=== PATIENT | female | born 1940 | race Caucasian/White ===

== ENCOUNTER → 2016-07-15 | Outpatient (CLI) | payer OTHER ==
[~2016-07-15] MED LIST: ACET-749 PO; AMOX1TAB42 PO; ATOR-24 PO; AZAT50TA17 PO; CLC100 PO; CRAN1TAB PO; GLIP10TA9 PO; INSU3INJ3 SQ; MRLP17X PO; MULT-506 PO; NATE1TAB PO; NRN400 PO; OMEP20CA9 PO; OXYC1TAB3 PO; POLY335019 PO; PRED-301 PO; PRED10TA PO; PRLSR20 PO; RXC5 PO; SENN-65 PO; SITA100T3 PO
--- NOTE | 2016-07-15 15:04 | DIAGNOSTIC IMAGING REPORT ---
RIGHT SHOULDER 3 VIEWS CLINICAL HISTORY: Right shoulder pain. FINDINGS: 3 views of the right shoulder are obtained. No prior studies are available for comparison at the time of dictation. The skeletal structures appear osteopenic. No fracture or dislocation is seen. Minimal degenerative change is seen at the acromioclavicular joint. The glenohumeral articulation appears preserved. The overlying soft tissues are within normal limits. Partially imaged right upper lobe lung parenchyma appears clear. Atherosclerotic calcification is noted in the thoracic aorta. IMPRESSION: Osteopenia and mild degenerative change as above. No acute bony abnormality is seen. Electronically signed by: Isaac Choudhury M.D. 07/15/2016 3:02 PM Dictated Date/Time: 07/15/2016 3:01 PM
== END | disposition home or self-care (01) ==
LOC: C.RAD 14:20
PROVIDERS: ATTEND Internal Medicine Hematology & Oncology
DX: C68.0 Malignant neoplasm of urethra (principal); M85.80 Other specified disorders of bone density and structure, unspecified site

== ENCOUNTER 2016-08-27 17:27 | Inpatient (IN) | payer OTHER ==
[~2016-08-27] VITALS: Ht 154.9 cm; Wt 53.0 kg
[~2016-08-27 17:27] MED LIST changes: -AMOX1TAB42 PO; -AZAT50TA17 PO; -INSU3INJ3 SQ; -MRLP17X PO; -NATE1TAB PO; -NRN400 PO; -OMEP20CA9 PO; -OXYC1TAB3 PO; -POLY335019 PO; -PRED-301 PO; -PRED10TA PO; -RXC5 PO; -SENN-65 PO
[2016-08-27 19:59] LABS: BASO % 0.2 %; BASO ABS # 0.02 K/uL (0-0.2); COMPLETE YES; EOS % 2.7 %; HEMATOCRIT 33.5 % (37-47); IG% 0.3 %; LYMPH % 21.2 %; LYMPH ABS # 1.96 K/uL (1.2-3.4); MEAN CORPUSCULAR HEMOGLOBIN 30.5 pg (25-34); MEAN CORPUSCULAR HGB CONC 33.1 g/dl (32-36); MEAN PLATELET VOLUME 10.5 fL (7.4-10.4); MONO % 9.5 %; NEUT % 66.1 %; PLATELET COUNT 358 K/uL (130-400); RED BLOOD COUNT 3.64 M/uL (4.2-5.4); WHITE BLOOD COUNT 9.23 K/uL (4.8-10.8)
[2016-08-27 20:15] LABS: BUN/CREATININE RATIO 12.4 (10-20); CALCIUM 8.9 mg/dl (8.5-10.1); CREATININE 1.9 mg/dl (0.60-1.20); POTASSIUM 4.1 mmol/L (3.5-5.1)
[2016-08-27 20:31] LABS: URINE APPEARANCE CLEAR (CLEAR); URINE BILIRUBIN NEG (NEG); URINE COLOR YELLOW; URINE NITRITE NEG (NEG); URINE PH 7.5 (4.5-7.5); UROBILINOGEN NEG (NEG); ZZUR CULT IF INDIC CLEAN CATCH YES
[2016-08-27 20:36] LABS: MANUAL MICROSCOPIC REQUIRED? NO; REVIEW REQ? NO
--- NOTE | 2016-08-27 20:49 | DIAGNOSTIC IMAGING REPORT ---
CT SCAN OF THE ABDOMEN AND PELVIS WITHOUT IV CONTRAST CLINICAL HISTORY: Lower abdominal pain. COMPARISON STUDY: Abdominal CT dated 06/10/2016. TECHNIQUE: CT scan of the abdomen and pelvis is performed from the lung bases to the proximal femora. Images are reviewed in the axial, sagittal, and coronal planes. IV contrast was not administered for this examination as per the referring clinician. Note that the examination was performed in suboptimal fashion without oral and IV contrast. Automated dose control exposure was utilized. CT DOSE: 288.14 mGycm FINDINGS: Lung bases: The heart is normal in size and without pericardial effusion. The coronary arteries are densely calcified. There is a small hiatal hernia. There is bibasilar atelectasis. Left basilar opacities are asymmetric as compared to the right. Emphysema is suspected. The left breast appears heterogeneously dense. Liver: The unenhanced liver is normal in size, contour, and attenuation. There is minimal central intrahepatic biliary ductal dilatation. Gallbladder: The gallbladder is normal in appearance. Ectasia of the common bile duct is similar to previous. Spleen: Normal in size and attenuation. Pancreas: The unenhanced pancreas is moderately atrophic and grossly unremarkable. This is not well assessed. Adrenal glands: Unremarkable. Kidneys: The left kidney is surgically absent. The unenhanced right kidney demonstrates cortical atrophy and is without hydronephrosis. There are no renal calculi identified. There is no evidence of contour deforming renal mass lesion. Abdominal vasculature: The abdominal aorta is normal in course and caliber noting mild to moderate atherosclerotic calcification. Bowel: The no bowel obstruction is seen. A duodenal diverticulum is suspected. There is moderate to severe colonic fecal retention. The distal small bowel is fecalized. There is wall thickening identified in the sigmoid colon with pericolonic inflammation and trace pericolonic fluid. Scattered colonic diverticula are identified. The appendix is not clearly identified. Peritoneum: There is no intraperitoneal free air or abdominal ascites. There is a small fat-containing umbilical hernia. Lymphadenopathy: None. Pelvic viscera: The bladder is normal as visualized. The uterus is surgically absent. No adnexal lesion is seen. Numerous phleboliths are identified in the pelvis. Skeletal structures: The skeletal structures are osteopenic. No lytic or blastic lesions are seen. There is mild to moderate lumbosacral spondylosis and scoliosis. Degenerative changes also seen in the hips. Soft tissues: A lipoma is noted in the musculature of the left lower back on image #145. IMPRESSION: 1. Significant suboptimal examination without oral and IV contrast. 2. There is moderate to severe constipation. 3. There is wall thickening with mild pericolonic inflammation and trace fluid seen involving the sigmoid colon. No significant diverticular disease is identified in this region and this is likely related to a nonspecific colitis, possibly stercoral. Clinical correlation will be required. Consider colonoscopy posttreatment for further assessment of the colon. 4. The left kidney is surgically absent. 5. There are bibasilar airspace opacities, left greater than right. This likely represents atelectasis. Correlate clinically for evidence of an infectious/inflammatory pneumonitis. 6. The left breast appears heterogeneously dense. This is not well assessed by CT. Consider nonemergent follow-up with mammography if not recently performed. 7. Additional findings as above. Electronically signed by: Isaac Choudhury M.D. 08/27/2016 8:47 PM Dictated Date/Time: 08/27/2016 8:37 PM
[2016-08-27] MEDS ORDERED: PIPERACILLIN/TAZOBACTAM 4.5 GM/100ML D5W IV STA (20:59)
[2016-08-27] MEDS ORDERED: DOCUSATE SODIUM/SENNA 50/8.6MG TAB PO ONE (22:18)
[2016-08-27] MEDS ORDERED: POLYETHYLENE (MIRALAX) 17 GM PACK PO ONE (22:18)
[2016-08-27] MEDS ORDERED: INSU3INJ3 SQ (22:24)
[2016-08-27] MEDS ORDERED: NATE1TAB PO (22:24)
[2016-08-27] MEDS ORDERED: NRN400 PO (22:27)
[2016-08-27] MEDS ORDERED: PRED10TA PO (22:27)
--- NOTE | 2016-08-27 22:27 | EMERGENCY ROOM VISIT NOTE ---
History Report prepared by Katey: Haseeb Ch Under the Supervision of: Dr. Jase Jose M.D. First contact with patient: 19:18 Chief Complaint: ABDOMINAL PAIN Stated Complaint: PAIN IN LOWER ABDOMEN, PAIN IN RECTUM Nursing Triage Summary: pt c/o lower abd pain into rectum. "I on't know if there is blockage". [facility] told pt to come in. denies n/v/d. last BM Wednesday, "I made myself go, I squirted water up there. I always have trouble going." kidney removed 06/23 History of Present Illness The patient is a 75 year old female who presents to the Emergency Room with complaints of waxing and waning lower abdominal pain that started yesterday. She says that the pain was higher in her abdomen yesterday, but is now lower today. The patient rates the pain as a 9 out of 10 in severity, and it is sharp when the pain is most intense. The patient called her urologist today (Dr. Jarvis), and he told the patient to come here. She also complains of pain into her rectum. The patient states that lying flat on her back causes her rectum to hurt and feel like she needs to go to the bathroom. However, she cannot go to the bathroom. Therefore, the patient is lying on her side, which makes her feel better. The patient has not had a bowel movement for 2 days, but did pass gas a few minutes ago for the first time. She has been getting mucous out. The patient took magnesium citrate yesterday but it did not help. The patient notes that she normally runs on the constipated side of things, and sometimes does not have a bowel movement for a couple days. She additionally complains of burning urination. She took Tylenol with codeine for her abdominal pain today, and has been taking codeine on and off since the end of May, when she had her left kidney taken out for cancer. Pt denies LOC, headache, fevers, diaphoresis, visual changes, neck pain, chest pain, breathing difficulties, nausea, vomiting, back pain, numbness, weakness, lymphadenopathy, rash, or other complaints. Source of History: patient Onset: Yesterday Position: abdomen (lower) Symptom Intensity: 9 out of 10 in severity Quality: sharp Timing: waxes/wanes Associated Symptoms: + urinary symptoms Note: Associated symptoms: Rectal pain. Constipated for 2 days. Review of Systems See HPI for pertinent positives and negatives. A total of ten systems were reviewed and were otherwise negative. 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 Family History Omitted due to advanced age Social History Smoking Status: Never Smoker Marital Status: Housing Status: lives alone Occupation Status: retired Current/Historical Medications Scheduled Atorvastatin (Lipitor), 40 MG PO QPM Cranberry (Vaccinium Macrocarp (Cranberry), 500 MG PO QPM Docusate Sodium (Docusate Sodium), 100 MG PO BID Glipizide (Glucotrol), 10 MG PO QAM Insulin Detemir (Levemir Flextouch), 12-13 UNITS SQ QAM Multivitamin (Multivitamin), 1 TAB PO QAM Nateglinide (Starlix), 60 MG PO BID Omeprazole (Prilosec), 20 MG PO DAILY Sitagliptin Phosphate (Januvia), 100 MG PO QAM Scheduled PRN Acetaminophen/Codeine (Tylenol W/Codeine #3), 1-2 TAB PO Q4H PRN for Pain Allergies Coded Allergies: Iodinated Diagnostic Agents (Verified Allergy, Severe, Anaphylaxis, 08/27/16 ) Reported by PT Adhesives (Verified Allergy, Unknown, RASH, 08/27/16) Glyburide (Verified Allergy, Unknown, Hives and Rash, 08/27/16) Reported by PT Latex (Verified Allergy, Unknown, Rash from gloves, 08/27/16) Reported by PT Physical Exam Vital Signs Date Time Temp Pulse Resp B/P Pulse Ox O2 Delivery O2 Flow Rate FiO2 08/27/16 21:20 73 18 131/71 99 08/27/16 19:30 71 08/27/16 19:21 68 16 140/78 98 08/27/16 17:35 37.0 72 20 123/68 97 Room Air Physical Exam GENERAL: Awake, alert, uncomfortable-appearing. HENT: Normocephalic, atraumatic. Oropharynx unremarkable. EYES: Normal conjunctiva. Sclera non-icteric. NECK: Supple. No nuchal rigidity. FROM. No JVD. RESPIRATORY: Clear to auscultation. CARDIAC: Regular rate, normal rhythm. Extremities warm and well perfused. Pulses equal. ABDOMEN: Soft, non-distended. Lower abdominal tenderness. No rebound or guarding. No masses. RECTAL: Deferred. MUSCULOSKELETAL: Chest examination reveals no tenderness. The back is symmetrical on inspection without obvious abnormality. There is no CVA tenderness to palpation. No joint edema. LOWER EXTREMITIES: Calves are equal size bilaterally and non-tender. No edema. No discoloration. NEURO: Normal sensorium. No sensory or motor deficits noted. SKIN: No rash or jaundice noted. Medical Decision & Procedures ER Provider Diagnostic Interpretation: CT: Radiology results as stated below per my review and radiologist interpretation CT SCAN OF THE ABDOMEN AND PELVIS WITHOUT IV CONTRAST CLINICAL HISTORY: Lower abdominal pain. COMPARISON STUDY: Abdominal CT dated 06/10/2016. TECHNIQUE: CT scan of the abdomen and pelvis is performed from the lung bases to the proximal femora. Images are reviewed in the axial, sagittal, and coronal planes. IV contrast was not administered for this examination as per the referring clinician. Note that the examination was performed in suboptimal fashion without oral and IV contrast. Automated dose control exposure was utilized. CT DOSE: 288.14 mGycm FINDINGS: Lung bases: The heart is normal in size and without pericardial effusion. The coronary arteries are densely calcified. There is a small hiatal hernia. There is bibasilar atelectasis. Left basilar opacities are asymmetric as compared to the right. Emphysema is suspected. The left breast appears heterogeneously dense. Liver: The unenhanced liver is normal in size, contour, and attenuation. There is minimal central intrahepatic biliary ductal dilatation. Gallbladder: The gallbladder is normal in appearance. Ectasia of the common bile duct is similar to previous. Spleen: Normal in size and attenuation. Pancreas: The unenhanced pancreas is moderately atrophic and grossly unremarkable. This is not well assessed. Adrenal glands: Unremarkable. Kidneys: The left kidney is surgically absent. The unenhanced right kidney demonstrates cortical atrophy and is without hydronephrosis. There are no renal calculi identified. There is no evidence of contour deforming renal mass lesion. Abdominal vasculature: The abdominal aorta is normal in course and caliber noting mild to moderate atherosclerotic calcification. Bowel: The no bowel obstruction is seen. A duodenal diverticulum is suspected. There is moderate to severe colonic fecal retention. The distal small bowel is fecalized. There is wall thickening identified in the sigmoid colon with pericolonic inflammation and trace pericolonic fluid. Scattered colonic diverticula are identified. The appendix is not clearly identified. Peritoneum: There is no intraperitoneal free air or abdominal ascites. There is a small fat-containing umbilical hernia. Lymphadenopathy: None. Pelvic viscera: The bladder is normal as visualized. The uterus is surgically absent. No adnexal lesion is seen. Numerous phleboliths are identified in the pelvis. Skeletal structures: The skeletal structures are osteopenic. No lytic or blastic lesions are seen. There is mild to moderate lumbosacral spondylosis and scoliosis. Degenerative changes also seen in the hips. Soft tissues: A lipoma is noted in the musculature of the left lower back on image #145. IMPRESSION: 1. Significant suboptimal examination without oral and IV contrast. 2. There is moderate to severe constipation. 3. There is wall thickening with mild pericolonic inflammation and trace fluid seen involving the sigmoid colon. No significant diverticular disease is identified in this region and this is likely related to a nonspecific colitis, possibly stercoral. Clinical correlation will be required. Consider colonoscopy posttreatment for further assessment of the colon. 4. The left kidney is surgically absent. 5. There are bibasilar airspace opacities, left greater than right. This likely represents atelectasis. Correlate clinically for evidence of an infectious/inflammatory pneumonitis. 6. The left breast appears heterogeneously dense. This is not well assessed by CT. Consider nonemergent follow-up with mammography if not recently performed. 7. Additional findings as above. Electronically signed by: Isaac Choudhury M.D. 08/27/2016 8:47 PM Dictated Date/Time: 08/27/2016 8:37 PM Laboratory Results 08/27/16 19:47 Red Blood Count 3.64, Mean Corpuscular Volume 92.0, Mean Corpuscular Hemoglobin 30.5, Mean Corpuscular Hemoglobin Concent 33.1, Mean Platelet Volume 10.5, Neutrophils (%) (Auto) 66.1, Lymphocytes (%) (Auto) 21.2, Monocytes (%) (Auto) 9.5, Eosinophils (%) (Auto) 2.7, Basophils (%) (Auto) 0.2, Neutrophils # (Auto) 6.09, Lymphocytes # (Auto) 1.96, Monocytes # (Auto) 0.88, Eosinophils # (Auto) 0.25, Basophils # (Auto) 0.02 08/27/16 19:47 Test 08/27/16 19:24 08/27/16 19:47 08/27/16 22:18 Urine Color YELLOW Urine Appearance CLEAR (CLEAR) Urine pH 7.5 (4.5-7.5) Urine Specific [place] 1.010 (1.000-1.030) Urine Protein NEG (NEG) Urine Glucose (UA) 1+ (NEG) Urine Ketones NEG (NEG) Urine Occult Blood NEG (NEG) Urine Nitrite NEG (NEG) Urine Bilirubin NEG (NEG) Urine Urobilinogen NEG (NEG) Urine Leukocyte Esterase LARGE (NEG) Urine WBC (Auto) >30 /hpf (0-5) Urine RBC (Auto) 0-4 /hpf (0-4) Urine Hyaline Casts (Auto) 1-5 /lpf (0-5) Urine Epithelial Cells (Auto) 5-10 /lpf (0-5) Urine Bacteria (Auto) 2+ (NEG) White Blood Count 9.23 K/uL (4.8-10.8) Red Blood Count 3.64 M/uL (4.2-5.4) Hemoglobin 11.1 g/dL (12.0-16.0) Hematocrit 33.5 % (37-47) Mean Corpuscular Volume 92.0 fL (80-100) Mean Corpuscular Hemoglobin 30.5 pg (25-34) Mean Corpuscular Hemoglobin Concent 33.1 g/dl (32-36) Platelet Count 358 K/uL (130-400) Mean Platelet Volume 10.5 fL (7.4-10.4) Neutrophils (%) (Auto) 66.1 % Lymphocytes (%) (Auto) 21.2 % Monocytes (%) (Auto) 9.5 % Eosinophils (%) (Auto) 2.7 % Basophils (%) (Auto) 0.2 % Neutrophils # (Auto) 6.09 K/uL (1.4-6.5) Lymphocytes # (Auto) 1.96 K/uL (1.2-3.4) Monocytes # (Auto) 0.88 K/uL (0.11-0.59) Eosinophils # (Auto) 0.25 K/uL (0-0.5) Basophils # (Auto) 0.02 K/uL (0-0.2) RDW Standard Deviation 45.9 fL (36.4-46.3) RDW Coefficient of Variation 13.6 % (11.5-14.5) Immature Granulocyte % (Auto) 0.3 % Immature Granulocyte # (Auto) 0.03 K/uL (0.00-0.02) Anion Gap 9.0 mmol/L (3-11) Est Creatinine Clear Calc Drug Dose 18.7 ml/min Estimated GFR () 29.0 Estimated GFR (Non- 25.0 BUN/Creatinine Ratio 12.4 (10-20) Calcium Level 8.9 mg/dl (8.5-10.1) Total Bilirubin 0.5 mg/dl (0.2-1) Direct Bilirubin 0.1 mg/dl (0-0.2) Aspartate Amino Transf (AST/SGOT) 68 U/L (15-37) Alanine Aminotransferase (ALT/SGPT) 88 U/L (12-78) Alkaline Phosphatase 404 U/L (45-117) Total Protein 8.8 gm/dl (6.4-8.2) Albumin 3.6 gm/dl (3.4-5.0) Lipase 154 U/L (73-393) Laboratory results reviewed by me Medications Administered Medications (Trade) Dose Ordered Sig/Alvarado Route Start Time Stop Time Status Last Admin Dose Admin Piperacillin Sod/ Tazobactam Sod (Zosyn Iv) 4.5 gm NOW STAT IV 08/27/16 20:59 08/27/16 21:01 DC 08/27/16 21:26 4.5 GM ED Course 1953: The patient was evaluated in room B2. A complete history and physical exam was performed. 2058: Ordered Zosyn IV 4.5 gm. 2106: Upon reexamination, the patient was resting comfortably. I discussed the test results and treatment plan with her. The patient will be evaluated for further management. 2121: I discussed the patient with Dr. Olinda De La Cruz logistic specialist - he will evaluate the patient for further treatment. Medical Decision Triage Nursing notes reviewed. The patient's presentation and history were concerning for abdominal pain. Etiologies such as constipation, appendicitis, diverticulitis, obstruction, inflammatory bowel disease, renal colic, PUD, biliary pathology, pancreatitis, mesenteric ischemia, aortic pathology, infections, genitourinary, UTI, perforated viscus, as well as others were entertained. The patient was evaluated. She was tender in her lower abdomen. Cc showed a mild anemia. Creatinine was stable at 1.9. LFTs are elevated but they were stable. Lipase was negative. Urinalysis was concerning for infection. The patient underwent CT imaging and this revealed findings concerning for stercoral colitis. The patient was informed about her breast findings. The patient was given dose of IV Zosyn. Given the fact that she has UTI and the colitis with her pain the patient was offered analgesia but declined again. The patient had a consultation made with internal medicine. She was evaluated in the Emergency Room for further management. The chart was completed utilizing [employer] voice recognition software. Grammatical errors, random word insertions, pronoun errors, and incomplete sentences are an occasional consequence of this system due to software limitations, ambient noise, and hardware issues. Any formal questions or concerns about the content, text, or information contained within the body of this dictation should be directly addressed to the physician for clarification. Consults Time Called: 2104 Consulting Physician: Dr. Olinda De La Cruz logistic specialist Returned Call: 2121 I discussed the patient with Dr. Olinda De La Cruz logistic specialist - he will evaluate the patient for further treatment. Impression Primary Impression: Colitis Additional Impression: UTI (urinary tract infection) Scribe Attestation The scribe's documentation has been prepared under my direction and personally reviewed by me in its entirety. I confirm that the note above accurately reflects all work, treatment, procedures, and medical decision making performed by me. Departure Information Dispostion Being Evaluated By Hospitalist Referrals Jhonny Molina D.O. (PCP) Patient Instructions My [facility] Problem Qualifiers
[2016-08-27] MEDS ORDERED: ACET-749 PO (22:28)
[2016-08-27] MEDS ORDERED: GLUCOSE 40% GEL 15 GM TUBE PO PRN (22:30)
[2016-08-27] MEDS ORDERED: SODIUM CHLORIDE 0.9% 1000ML 1,000 ML IV ONE (22:30)
[2016-08-27] MEDS ORDERED: TRAMADOL HCL 50 MG TAB PO PRN (22:30)
[2016-08-27] MEDS ORDERED: POLYETHYLENE (MIRALAX) 17 GM PACK PO PRN (22:30)
[2016-08-27] MEDS ORDERED: DEXTROSE 50% 50 ML SYR IV PRN (22:30)
[2016-08-27] MEDS ORDERED: GLUCAGON FOR INJ 1 MG VIAL SQ PRN (22:30)
[2016-08-27] MEDS ORDERED: ONDANSETRON INJ 2 MG/ML 2 ML VIAL IV PRN (22:30)
[2016-08-27] MEDS ORDERED: GLUCOSE 10 TABS/TUBE PO PRN (22:30)
[2016-08-27] MEDS ORDERED: HYDROmorphone INJ 0.5 MG/0.5 ML SYR IV PRN (22:30)
[2016-08-27] MEDS ORDERED: ACETAMINOPHEN 325 MG TAB PO PRN (22:30)
[2016-08-27 22:37] LABS: PARTIAL THROMBOPLASTIN RATIO 1.1; PROTHROMBIN TIME (PATIENT) 11.1 SECONDS (9.0-12.0)
[2016-08-28 00:42] VITALS: BP 126/66; PULSE 83; TEMP 36.9; O2SAT 97; Ht 154.9 cm; Wt 53.0 kg
[2016-08-28] MEDS: HEPARIN SOD 5000 UNIT/0.5 ML CARP SQ SCH ×3 (05:46→20:39)
[2016-08-28 07:36] LABS: HEMATOCRIT 31.4 % (37-47); MEAN CELL VOLUME 89.7 fL (80-100); MEAN CORPUSCULAR HEMOGLOBIN 30.3 pg (25-34); MEAN CORPUSCULAR HGB CONC 33.8 g/dl (32-36); MEAN PLATELET VOLUME 9.8 fL (7.4-10.4); PLATELET COUNT 314 K/uL (130-400); WHITE BLOOD COUNT 8.18 K/uL (4.8-10.8)
[2016-08-28 07:38] VITALS: BP 100/63; PULSE 66; TEMP 36.7; O2SAT 96
--- NOTE | 2016-08-28 07:38 | HISTORY & PHYSICAL EXAMINATION ---
DATE OF ADMISSION: 08/27/2016 PRIMARY CARE DOCTOR: Dr. Molina. Hx obtained from px and records. CHIEF COMPLAINT: Lower abdominal discomfort. 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 DM2, on oral meds. Uterine cancer sp surgery Recent confinement May 2016 under Urology service for left ureteric TCC status post left nephroureterectomy with lymph node dissection. Few days history of achy lower abdominal pain; somewhat constipated. usual BM every 2 days. No chest pain, no shortness of breath. Px also co bladder discomfort. no fever, admits to chills At the Emergency Room, the patient received Zosyn for UTI. Chronic anemia, hemoglobin 11. MEDICAL HISTORY: As above. Recent outpatient endoscopies for abnormal LFTs, abnormal MRCP(bile duct dilatation). Autoimmune markers are elevated. [place] [facility] as per patient contemplated. Outpatient Oncology contemplated for ureteric cancer. EGD in June 2016, gastritis, nonbleeding duodenal diverticulum Colonoscopy showed in 2011 diverticulosis and internal hemorrhoids. SURGERIES: She has had a ureteronephrectomy, left. hysterectomy. HOME MEDICATIONS: Include Lipitor, cranberry, Glucotrol, multivitamins, Prilosec, Januvia. ALLERGIES: ADHESIVES, GLYBURIDE, LATEX, DYE. FAMILY HISTORY: Family history of heart disease, diabetes, and breast cancer. PERSONAL AND SOCIAL HISTORY: Nonsmoker, no chronic intake of alcoholic beverages. . REVIEW OF SYSTEMS: As per HPI. All other ROS negative. PHYSICAL EXAMINATION: VITAL SIGNS: Blood pressure was noted to be 130/68, pulse rate 72, RR 20, temperature 36.7, and sats 97 on room air. GENERAL: Noted to be slightly anxious, no respiratory distress. SKIN: Pallor. HEENT: Pale palpebral conjunctivae. Dry mucosa. NECK: No JVD. supple CHEST: Clear to auscultation. HEART: Regular rate and rhythm. ABDOMEN: Hypogastric tenderness. NEUROLOGIC: No gross focality. LABORATORY AND IMAGING DATA: Hemoglobin was 11.9, white cells 9.2, platelets 200. Sodium 136, potassium 4.1, chloride 98, CO2 28, BUN 24, creatinine 1.9, glucose was noted to be 179. HgA1c 7.5 (05/2016) CT abdomen and pelvis showed pericolonic inflammation, mild nonspecific colitis , possibly stercoral, atelectasis, left breast heterogenicity dense, constipation. outpx mammogram December 2015 was benign, no evidence of malignancy. UA large WBCs positive. ASSESSMENT: 1. Complicated urinary tract infection 2 to constipation sx hx uroepithelial CA, L sp surgery no sepsis hx ampicillin resistant Escherichia coli on previous outpx CS 2. reactive colitis secondary to constipation. 3. Hypertension, stable. 4. ARF on CRI 2 to illness 5. DM2, on oral meds reasonable control as of recent outpx A1c. 6. chronic anemia to CKD, hemoglobin at baseline, 7. abnormal LFTs possible autoimmune hepatitis as per px C [facility] referral contemplated as per px. 8. uterine CA sp surgery PLAN: GMF Follow urine cultures, IV ceftriaxone for now. Bowel regimen Monitor creatinine response to IV fluids. ISS BG goal 140-180. DVT prophylaxis. Heparin subQ. Full code. MTDD
[2016-08-28 08:08] LABS: BUN/CREATININE RATIO 11.8 (10-20); CALCIUM 8.8 mg/dl (8.5-10.1); CREATININE 1.9 mg/dl (0.60-1.20)
[2016-08-28] MEDS: INSULIN ASPART 100 UNITS/ML 3 ML PEN SC SCH ×4 (08:42→20:38)
[2016-08-28 08:44] LABS: BASO % 0.2 %; BASO ABS # 0.02 K/uL (0-0.2); COMPLETE YES; EOS % 3.3 %; IG% 0.1 %; LYMPH ABS # 1.72 K/uL (1.2-3.4); NEUT % 68.4 %
[2016-08-28] MEDS: PANTOprazole SOD 40 MG TAB PO SCH ×2 (08:51→20:20)
[2016-08-28] MEDS: MULTIVITAMIN TAB PO SCH (08:51)
[2016-08-28] MEDS: DOCUSATE SODIUM/SENNA 50/8.6MG TAB PO SCH ×2 (08:52→20:20)
[2016-08-28] MEDS: INSULIN GLARGINE SOLOSTAR 100 UNITS/ML 3 ML PEN SC SCH (08:59)
[2016-08-28] MEDS ORDERED: CEFTRIAXONE SOD INJ 1 GM in DEXTROSE 5% ADD-VANTAGE 50ML 50 ML IV SCH (09:00)
[2016-08-28] MEDS ORDERED: VANCOMYCIN INJ 1,000 MG in SODIUM CHLORIDE 0.9% 250ML 250 ML IV SCH (14:45)
[2016-08-28] MEDS ORDERED: VANCOMYCIN CONSULT ACTIVE PRN (15:00)
[2016-08-28] MEDS ORDERED: VANCOMYCIN INJ 1,100 MG in SODIUM CHLORIDE 0.9% 250ML 250 ML IV ONE (15:30)
[2016-08-28 15:34] VITALS: BP 117/74; PULSE 70; TEMP 36.7; O2SAT 97
--- NOTE | 2016-08-28 15:46 | Pharmacy Progress Note ---
Pharmacy Antibiotic Consult Date of Service: Aug 28, 2016. Pharmacy Dosing Scope Pharmacy is consulted to initiate vancomycin IV dosing therapy, order appropriate labs and adjust drug dose/frequency. Subjective The patient is a 75 year old female admitted on Aug 27, 2016 at 21:46. Objective Height (Feet): 5 Height (Inches): 1.00 Weight (Kilograms): 53.000 Lab Results (24hrs): Laboratory Tests Test 08/27/16 19:47 08/28/16 07:24 BUN/Creatinine Ratio 12.4 11.8 Blood Urea Nitrogen 24 mg/dl 23 mg/dl Creatinine 1.90 mg/dl 1.90 mg/dl White Blood Count 9.23 K/uL 8.18 K/uL Red Blood Count 3.64 M/uL 3.50 M/uL Hemoglobin 11.1 g/dL 10.6 g/dL Hematocrit 33.5 % 31.4 % Mean Corpuscular Volume 92.0 fL 89.7 fL Mean Corpuscular Hemoglobin 30.5 pg 30.3 pg Mean Corpuscular Hemoglobin Concent 33.1 g/dl 33.8 g/dl Platelet Count 358 K/uL 314 K/uL Mean Platelet Volume 10.5 fL 9.8 fL Neutrophils (%) (Auto) 66.1 % 68.4 % Lymphocytes (%) (Auto) 21.2 % 21.0 % Monocytes (%) (Auto) 9.5 % 7.0 % Eosinophils (%) (Auto) 2.7 % 3.3 % Basophils (%) (Auto) 0.2 % 0.2 % Neutrophils # (Auto) 6.09 K/uL 5.59 K/uL Lymphocytes # (Auto) 1.96 K/uL 1.72 K/uL Monocytes # (Auto) 0.88 K/uL 0.57 K/uL Eosinophils # (Auto) 0.25 K/uL 0.27 K/uL Basophils # (Auto) 0.02 K/uL 0.02 K/uL Assessment & Plan Patient initiated on vancomycin for UC now growing enterococcus. Had been on rocephin - now al'ed. Vancomycin: * Will give LD of 1100 mg (~20 mg/kg) x 1 * Patient with CKD baseline Scr ~2 mg/dL (of note hx of nephrectomy; unsure of urine output) * Because of unstable renal function will dose by levels ; will order a random level in the am to assist with further dosing, estimated level tomorrow am still >15 mcg/ml (goal 15-20 mcg/ml for UTI) * Estimated kinetics: t1/2~>24 hrs, ke ~0.019 hr-1, CrCl ~18ml/min Pharmacy will continue to follow and will adjust dose/frequency as necessary. Thank you
[2016-08-28 16:00] VITALS: O2SAT 97
--- NOTE | 2016-08-28 18:59 | Progress Note ---
Internal Med Progress Note Date of Service: Aug 28, 2016. Provider Documentation: SUBJECTIVE: resting comfortable afebrile 'moved bowels twice and abdominal pain is better now no nausea OBJECTIVE: Vital Signs-as noted below Exam: General-alert and awake and oriented. Not in distress ENT-normal hearing Neck-no neck masses Lungs-cta b/l no wheezing or crackles Heart-s1 and s2 heard, regular rate and rhythm no murmurs Abdomen-soft bowel sounds present non tender no distension Extremities-no edema no erythema Neuro-alert and awake moves extremities Lab data as noted below. ASSESSMENT & PLAN: 1. 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 ARF on CRI 2 to illness cr 1.9 will monitor. DM2, on oral meds reasonable control as of recent outpx A1c. on lantus and iss will monitor. Chronic anemia to CKD, hemoglobin at baseline, hb 10.6 Abnormal LFTs possible autoimmune hepatitis as per px [facility] referral contemplated as per px. Uterine CA sp surgery DVT PROPHYLAXIS hep sub q DISPOSITION to be determined ambulate in [address]. Vital Signs: Date Time Temp Pulse Resp B/P Pulse Ox O2 Delivery O2 Flow Rate FiO2 08/28/16 16:00 97 Room Air 08/28/16 15:34 36.7 70 20 117/74 97 Room Air 08/28/16 08:00 Room Air 08/28/16 07:38 36.7 66 16 100/63 96 Room Air 08/28/16 00:42 36.9 83 18 126/66 97 Room Air 08/27/16 22:31 84 20 101/79 97 Room Air 08/27/16 21:20 73 18 131/71 99 08/27/16 19:30 71 08/27/16 19:21 68 16 140/78 98 Lab Results: Results Past 24 Hours Test 08/27/16 19:24 08/27/16 19:47 08/27/16 23:34 08/28/16 07:24 Range/Units Urine Color YELLOW Urine Appearance CLEAR CLEAR Urine pH 7.5 4.5-7.5 Urine Specific [place] 1.010 1.000-1.030 Urine Protein NEG NEG Urine Glucose (UA) 1+ NEG Urine Ketones NEG NEG Urine Occult Blood NEG NEG Urine Nitrite NEG NEG Urine Bilirubin NEG NEG Urine Urobilinogen NEG NEG Urine Leukocyte Esterase LARGE NEG Urine WBC (Auto) >30 0-5 /hpf Urine RBC (Auto) 0-4 0-4 /hpf Urine Hyaline Casts (Auto) 1-5 0-5 /lpf Urine Epithelial Cells (Auto) 5-10 0-5 /lpf Urine Bacteria (Auto) 2+ NEG White Blood Count 9.23 8.18 4.8-10.8 K/uL Red Blood Count 3.64 3.50 4.2-5.4 M/uL Hemoglobin 11.1 10.6 12.0-16.0 g/dL Hematocrit 33.5 31.4 37-47 % Mean Corpuscular Volume 92.0 89.7 80-100 fL Mean Corpuscular Hemoglobin 30.5 30.3 25-34 pg Mean Corpuscular Hemoglobin Concent 33.1 33.8 32-36 g/dl Platelet Count 358 314 130-400 K/uL Mean Platelet Volume 10.5 9.8 7.4-10.4 fL Neutrophils (%) (Auto) 66.1 68.4 % Lymphocytes (%) (Auto) 21.2 21.0 % Monocytes (%) (Auto) 9.5 7.0 % Eosinophils (%) (Auto) 2.7 3.3 % Basophils (%) (Auto) 0.2 0.2 % Neutrophils # (Auto) 6.09 5.59 1.4-6.5 K/uL Lymphocytes # (Auto) 1.96 1.72 1.2-3.4 K/uL Monocytes # (Auto) 0.88 0.57 0.11-0.59 K/uL Eosinophils # (Auto) 0.25 0.27 0-0.5 K/uL Basophils # (Auto) 0.02 0.02 0-0.2 K/uL RDW Standard Deviation 45.9 44.1 36.4-46.3 fL RDW Coefficient of Variation 13.6 13.4 11.5-14.5 % Immature Granulocyte % (Auto) 0.3 0.1 % Immature Granulocyte # (Auto) 0.03 0.01 0.00-0.02 K/uL Prothrombin Time 11.1 9.0-12.0 SECONDS Prothromb Time International Ratio 1.0 0.9-1.1 Activated Partial Thromboplast Time 27.3 21.0-31.0 SECONDS Partial Thromboplastin Ratio 1.1 Sodium Level 135 135 136-145 mmol/L Potassium Level 4.1 4.0 3.5-5.1 mmol/L Chloride Level 98 101 98-107 mmol/L Carbon Dioxide Level 28 25 21-32 mmol/L Anion Gap 9.0 9.0 3-11 mmol/L Blood Urea Nitrogen 24 23 7-18 mg/dl Creatinine 1.90 1.90 0.60-1.20 mg/dl Est Creatinine Clear Calc Drug Dose 18.7 18.7 ml/min Estimated GFR () 29.0 29.0 Estimated GFR (Non- 25.0 25.0 BUN/Creatinine Ratio 12.4 11.8 10-20 Random Glucose 148 103 70-99 mg/dl Calcium Level 8.9 8.8 8.5-10.1 mg/dl Total Bilirubin 0.5 0.2-1 mg/dl Direct Bilirubin 0.1 0-0.2 mg/dl Aspartate Amino Transf (AST/SGOT) 68 15-37 U/L Alanine Aminotransferase (ALT/SGPT) 88 12-78 U/L Alkaline Phosphatase 404 45-117 U/L Total Protein 8.8 6.4-8.2 gm/dl Albumin 3.6 3.4-5.0 gm/dl Lipase 154 73-393 U/L Bedside Glucose 179 70-90 mg/dl Test 08/28/16 08:42 08/28/16 12:01 08/28/16 16:22 Range/Units Bedside Glucose 156 189 212 70-90 mg/dl Microbiology Results 08/27/16 Urine Culture - Preliminary, Resulted Enterococcus Species
[2016-08-28] MEDS ORDERED: POLYETHYLENE (MIRALAX) 17 GM PACK PO ONE (20:00)
[2016-08-29] VITALS: BP 105/66; PULSE 59; TEMP 36.8; O2SAT 99
[2016-08-29] MEDS: HEPARIN SOD 5000 UNIT/0.5 ML CARP SQ SCH ×2 (05:44→14:09)
[2016-08-29 06:35] LABS: BUN/CREATININE RATIO 13.6 (10-20); CALCIUM 8.6 mg/dl (8.5-10.1); CREATININE 1.8 mg/dl (0.60-1.20); POTASSIUM 4.3 mmol/L (3.5-5.1)
[2016-08-29 07:45] VITALS: BP 117/70; PULSE 53; TEMP 36.7; O2SAT 99
[2016-08-29] MEDS: INSULIN ASPART 100 UNITS/ML 3 ML PEN SC SCH ×4 (08:06→20:27)
[2016-08-29] MEDS: DOCUSATE SODIUM/SENNA 50/8.6MG TAB PO SCH ×2 (08:07→20:27)
[2016-08-29] MEDS: INSULIN GLARGINE SOLOSTAR 100 UNITS/ML 3 ML PEN SC SCH (08:07)
[2016-08-29] MEDS: PANTOprazole SOD 40 MG TAB PO SCH ×2 (08:07→20:27)
[2016-08-29] MEDS: MULTIVITAMIN TAB PO SCH (08:07)
--- NOTE | 2016-08-29 09:25 | Pharmacy Progress Note ---
Pharmacy Antibiotic Prog Note Date of Service: Aug 29, 2016. Subjective: The patient is currently receiving IV Vancomycin dosing based on random levels due to CKD. The patient is currently on day # 2 of IV therapy. Objective: Height (Feet): 5 Height (Inches): 1.00 Weight (Kilograms): 53.000 Levels: Item Value Date Time Random Vancomycin Level 12.0 mcg/ml 08/29/16 0550 Lab Results (24hrs): Laboratory Tests Test 08/29/16 05:50 BUN/Creatinine Ratio 13.6 Blood Urea Nitrogen 24 mg/dl Creatinine 1.80 mg/dl Micro Results: Item Value Date Time Urine Culture - Preliminary Resulted 08/27/16 1924 Urine , Clean Catch Enterococcus Species Recent Pertinent Medications: Item Value Date Time Vancomycin HCl 272 ml @ 125 mls/hr 08/28/16 1530 1100 mg/Sodium TODAY@1530 ONCE/IV 08/28/16 1610 Chloride Vancomycin HCl 265 ml @ 125 mls/hr 08/29/16 1000 750 mg/Sodium TODAY@1000/IV Chloride Assessment & Plan: Vancomycin * 75 yo female on IV Vanco for entercoccus in urine * received 20mg/kg load yesterday with further dosing guided by random levels due to CKD/unstable renal fxn * random level this am: 12mcg/mL --> will redose today * goal trough level: 15-20mcg/mL * give Vancomycin 750mg IV x 1 dose (~14mg/kg) * repeat level ordered with 3/5 AM labs Pharmacy will continue to follow and will adjust dose/frequency as necessary. Thank you
[2016-08-29] MEDS ORDERED: VANCOMYCIN INJ 750 MG in SODIUM CHLORIDE 0.9% 250ML 250 ML IV SCH (10:00)
[2016-08-29] MEDS ORDERED: INSULIN GLARGINE SOLOSTAR 100 UNITS/ML 3 ML PEN SC ONE (15:00)
[2016-08-29] MEDS: AMOXICILLIN/CLAVULANATE TAB 500 MG TAB PO SCH (16:52)
--- NOTE | 2016-08-29 19:44 | Progress Note ---
Internal Med Progress Note Date of Service: Aug 29, 2016. Provider Documentation: SUBJECTIVE: resting comfortable bowels moving afebrile abdominal pain much improved OBJECTIVE: Vital Signs-as noted below Exam: General-alert and awake and oriented. Not in distress ENT-normal hearing Neck-no neck masses Lungs-cta b/l no wheezing or crackles Heart-s1 and s2 heard, regular rate and rhythm no murmurs Abdomen-soft bowel sounds present non tender no distension Extremities-no edema no erythema Neuro-alert and awake moves extremities Lab data as noted below. ASSESSMENT & PLAN: 1. 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 ARF on CRI 2 to illness cr 1.8 will monitor. DM2, on oral meds reasonable control as of recent outpx A1c. on Lantus and iss and adjusted insulin will monitor. Chronic anemia to CKD, hemoglobin at baseline, hb 10.6 Abnormal LFTs possible autoimmune hepatitis as per px [facility] referral contemplated as per px. Uterine CA sp surgery DVT PROPHYLAXIS hep sub q DISPOSITION possible d/c in am ambulate in [address]. Vital Signs: Date Time Temp Pulse Resp B/P Pulse Ox O2 Delivery O2 Flow Rate FiO2 08/29/16 16:00 Room Air 08/29/16 12:00 Room Air 08/29/16 08:00 Room Air 08/29/16 07:45 36.7 53 18 117/70 99 08/29/16 00:00 36.8 59 20 105/66 99 Room Air 08/29/16 00:00 Room Air Lab Results: Results Past 24 Hours Test 08/28/16 20:29 08/29/16 05:50 08/29/16 07:25 08/29/16 11:13 Range/Units Bedside Glucose 268 204 287 70-90 mg/dl Sodium Level 134 136-145 mmol/L Potassium Level 4.3 3.5-5.1 mmol/L Chloride Level 102 98-107 mmol/L Carbon Dioxide Level 24 21-32 mmol/L Anion Gap 8.0 3-11 mmol/L Blood Urea Nitrogen 24 7-18 mg/dl Creatinine 1.80 0.60-1.20 mg/dl Est Creatinine Clear Calc Drug Dose 19.7 ml/min Estimated GFR () 30.9 Estimated GFR (Non- 26.7 BUN/Creatinine Ratio 13.6 10-20 Random Glucose 209 70-99 mg/dl Calcium Level 8.6 8.5-10.1 mg/dl Random Vancomycin Level 12.0 mcg/ml Test 08/29/16 16:20 Range/Units Bedside Glucose 116 70-90 mg/dl
[2016-08-29 23:44] VITALS: BP 115/73; PULSE 55; TEMP 36.7; O2SAT 98
[2016-08-30 06:25] LABS: BUN/CREATININE RATIO 13.5 (10-20); CALCIUM 8.9 mg/dl (8.5-10.1); POTASSIUM 4.4 mmol/L (3.5-5.1)
[2016-08-30 08:01] VITALS: BP 93/53; PULSE 61; TEMP 36.7; O2SAT 95
[2016-08-30] MEDS: DOCUSATE SODIUM/SENNA 50/8.6MG TAB PO SCH (08:15)
[2016-08-30] MEDS: PANTOprazole SOD 40 MG TAB PO SCH (08:15)
[2016-08-30] MEDS: MULTIVITAMIN TAB PO SCH (08:15)
[2016-08-30] MEDS: AMOXICILLIN/CLAVULANATE TAB 500 MG TAB PO SCH (08:15)
[2016-08-30] MEDS: INSULIN ASPART 100 UNITS/ML 3 ML PEN SC SCH ×2 (08:19→12:12)
[2016-08-30 08:39] VITALS: BP 102/66
[2016-08-30] MEDS ORDERED: INSULIN GLARGINE SOLOSTAR 100 UNITS/ML 3 ML PEN SC SCH (09:00)
[2016-08-30] MEDS ORDERED: AMOX1TAB42 PO (14:57)
--- NOTE | 2016-08-30 15:01 | Discharge Instructions ---
Discharge Instructions Admission Reason for Admission: Arf, Complicated Uti Discharge Discharge Diagnosis / Problem: UTI Discharge Goals Goal(s): Decrease discomfort, Improve function Activity Recommendations Activity Limitations: resume your previous activity . Instructions / Follow-Up Instructions / Follow-Up FOLLOWUP WITH FAMILY DOCTOR ON August AT 12:50PM FOLLOWUP WITH NEPHROLOGY SCHEDULED. LAB: CMP IN 4-5 DAYS AND FOLLOW RESULTS WITH FAMILY DOCTOR. Current Hospital Diet Patient's current hospital diet: Diabetes Type 2 Diet Discharge Diet Recommended Diet: Diabetes Type 2 Diet Pending Studies Studies pending at discharge: no Laboratory Results Hemoglobin A1c Test 06/24/16 05:25 Range/Units Estimated Average Glucose 177 mg/dl Hemoglobin A1c 7.8 H 4.5-5.6 % Medical Emergencies . Who to Call and When: Medical Emergencies: If at any time you feel your situation is an emergency, please call 911 immediately. . Non-Emergent Contact Non-Emergency issues call your: Primary Care Provider . . "Provider Documentation" section prepared by Ellis Wong. VTE Core Measure Inpt VTE Proph given/why not?: SCD's
[2016-08-30] MEDS ORDERED: MRLP17X PO (15:02)
[2016-08-30 15:13] VITALS: BP 102/66; PULSE 61; TEMP 36.7; O2SAT 95
--- NOTE | 2016-08-30 19:10 | Progress Note ---
Internal Med Progress Note Date of Service: Aug 30, 2016. Provider Documentation: SUBJECTIVE: resting comfortable bowels moving good abdominal pain improved ok to go home OBJECTIVE: Vital Signs-as noted below Exam: General-alert and awake and oriented. Not in distress ENT-normal hearing Neck-no neck masses Lungs-cta b/l no wheezing or crackles Heart-s1 and s2 heard, regular rate and rhythm no murmurs Abdomen-soft bowel sounds present non tender no distension Extremities-no edema no erythema Neuro-alert and awake moves extremities Lab data as noted below. ASSESSMENT & PLAN: 1. 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 ckd cr 2.0 on discharge f/u labs with pcp and nephrology will monitor. DM2, on oral meds reasonable control as of recent outpx A1c. on Lantus and iss and adjusted insulin d/c on home meds Chronic anemia to CKD, hemoglobin at baseline, hb 10.6 Abnormal LFTs possible autoimmune hepatitis as per px [facility] referral contemplated as per px. Uterine CA sp surgery discharged home Vital Signs: Date Time Temp Pulse Resp B/P Pulse Ox O2 Delivery O2 Flow Rate FiO2 08/30/16 15:13 36.7 61 16 95 Room Air 08/30/16 08:39 102/66 08/30/16 08:10 Room Air 08/30/16 08:01 36.7 61 16 93/53 95 Room Air 08/30/16 00:00 Room Air 08/29/16 23:44 36.7 55 20 115/73 98 Room Air Lab Results: Results Past 24 Hours Test 08/29/16 20:12 08/30/16 05:31 08/30/16 07:30 08/30/16 11:44 Range/Units Bedside Glucose 81 128 169 70-90 mg/dl Sodium Level 136 136-145 mmol/L Potassium Level 4.4 3.5-5.1 mmol/L Chloride Level 102 98-107 mmol/L Carbon Dioxide Level 24 21-32 mmol/L Anion Gap 10.0 3-11 mmol/L Blood Urea Nitrogen 27 7-18 mg/dl Creatinine 2.00 0.60-1.20 mg/dl Est Creatinine Clear Calc Drug Dose 17.8 ml/min Estimated GFR () 27.2 Estimated GFR (Non- 23.5 BUN/Creatinine Ratio 13.5 10-20 Random Glucose 120 70-99 mg/dl Calcium Level 8.9 8.5-10.1 mg/dl
--- NOTE | 2016-08-30 19:34 | Discharge Summary ---
Discharge Summary Date of Service Aug 30, 2016. 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 DM2, on oral meds. Uterine cancer sp surgery Procedures: CT ABD/PELVIS: 1. Significant suboptimal examination without oral and IV contrast. 2. There is moderate to severe constipation. 3. There is wall thickening with mild pericolonic inflammation and trace fluid seen involving the sigmoid colon. No significant diverticular disease is identified in this region and this is likely related to a nonspecific colitis, possibly stercoral. Clinical correlation will be required. Consider colonoscopy posttreatment for further assessment of the colon. 4. The left kidney is surgically absent. 5. There are bibasilar airspace opacities, left greater than right. This likely represents atelectasis. Correlate clinically for evidence of an infectious/inflammatory pneumonitis. 6. The left breast appears heterogeneously dense. This is not well assessed by CT. Consider nonemergent follow-up with mammography if not recently performed. 7. Additional findings as above. Medication Reconciliation New Medications: Polyethylene (Miralax) 17 Gm Pow 17 GM PO DAILY PRN for Constipation for 30 Days, 1 Refill Amoxicillin & Pot Clavulanate (Amoxicillin/Clavulanate P) 1 Tab Tab 500 MG PO BIDM for 6 Days, TAB Continued Medications: Acetaminophen/Codeine (Tylenol W/Codeine #3) 300 Mg/30 Mg Tab 1 TAB PO Q4 PRN for Pain, TAB Atorvastatin (Lipitor) 40 Mg Tab 40 MG PO QPM, TAB Docusate Sodium (Docusate Sodium) 100 Mg Cap 100 MG PO BID for Constipation for 30 Days, #60 CAP Gabapentin (Gabapentin) 400 Mg Cap 400 MG PO HS, #90 Insulin Detemir (Levemir Flextouch) 100 Unit/Ml Inj 12-13 UNITS SQ QAM, #3 Multivitamin (Multivitamin) Tab 1 TAB PO QAM, TAB Nateglinide (Starlix) 60 Mg Tab 60 MG PO BID, #180 Omeprazole (Prilosec) 20 Mg Capcr 20 MG PO DAILY, CAP TAKE AM SURGERY SIP WATER Prednisone (Prednisone) 10 Mg Tab 10 MG PO TAPER, #100 Sitagliptin Phosphate (Januvia) 100 Mg Tab 100 MG PO QAM, TAB HOLD AM SURGERY Admission Information HPI (per Admitting provider): Medical history significant for 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 DM2, on oral meds. Uterine cancer sp surgery Recent confinement May 2016 under Urology service for left ureteric TCC status post left nephroureterectomy with lymph node dissection. Few days history of achy lower abdominal pain; somewhat constipated. usual BM every 2 days. No chest pain, no shortness of breath. Px also co bladder discomfort. no fever, admits to chills At the Emergency Room, the patient received Zosyn for UTI. Chronic anemia, hemoglobin 11. Physical Exam (per Admitting): VITAL SIGNS: Blood pressure was noted to be 130/68, pulse rate 72, RR 20, temperature 36.7, and sats 97 on room air. GENERAL: Noted to be slightly anxious, no respiratory distress. SKIN: Pallor. HEENT: Pale palpebral conjunctivae. Dry mucosa. NECK: No JVD. supple CHEST: Clear to auscultation. HEART: Regular rate and rhythm. ABDOMEN: Hypogastric tenderness. NEUROLOGIC: No gross focality. Hospital Course 1. 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 ckd cr 2.0 on discharge f/u labs with pcp and nephrology will monitor. DM2, on oral meds reasonable control as of recent outpx A1c. on Lantus and iss and adjusted insulin d/c on home meds Chronic anemia to CKD, hemoglobin at baseline, hb 10.6 Abnormal LFTs possible autoimmune hepatitis as per px [facility] referral contemplated as per px. Uterine CA sp surgery discharged home Total time spent on discharge = 35 MINUTES This includes examination of the patient, discharge planning, medication reconciliation, and communication with other providers. Discharge Instructions Please take this sheet to every appointment for the next month Discharge Instructions Admission Reason for Admission: Arf, Complicated Uti Discharge Discharge Diagnosis / Problem: UTI Discharge Goals Goal(s): Decrease discomfort, Improve function Activity Recommendations Activity Limitations: resume your previous activity . Instructions / Follow-Up Instructions / Follow-Up FOLLOWUP WITH FAMILY DOCTOR ON August AT 12:50PM FOLLOWUP WITH NEPHROLOGY SCHEDULED. LAB: CMP IN 4-5 DAYS AND FOLLOW RESULTS WITH FAMILY DOCTOR. Current Hospital Diet Patient's current hospital diet: Diabetes Type 2 Diet Discharge Diet Recommended Diet: Diabetes Type 2 Diet Pending Studies Studies pending at discharge: no Laboratory Results Hemoglobin A1c Test 06/24/16 05:25 Range/Units Estimated Average Glucose 177 mg/dl Hemoglobin A1c 7.8 H 4.5-5.6 % Medical Emergencies . Who to Call and When: Medical Emergencies: If at any time you feel your situation is an emergency, please call 911 immediately. . Non-Emergent Contact Non-Emergency issues call your: Primary Care Provider . . "Provider Documentation" section prepared by Ellis Wong. VTE Core Measure Inpt VTE Proph given/why not?: SCD's <Electronically signed by Ellis Wong MD>
[2017-01-22] MEDS ORDERED: INSU3INJ3 SQ (17:22)
== END 2016-08-30 15:38 | disposition home or self-care (01) | DRG 690 ==
LOC: ENRESERVDT → ENRESERVTM → C.EDB 17:28 → C.MED 21:46
PROVIDERS: ADMIT Internal Medicine; ATTEND Internal Medicine
DX: N39.0 Urinary tract infection, site not specified (principal); C66.2 Malignant neoplasm of left ureter; N17.9 Acute kidney failure, unspecified; B95.2 Enterococcus as the cause of diseases classified elsewhere; E11.9 Type 2 diabetes mellitus without complications; I10 Essential (primary) hypertension; D64.9 Anemia, unspecified; N18.9 Chronic kidney disease, unspecified; K59.00 Constipation, unspecified; K52.9 Noninfective gastroenteritis and colitis, unspecified; Z79.899 Other long term (current) drug therapy

== ENCOUNTER → 2016-11-30 | Outpatient (CLI) | payer OTHER ==
[~2016-11-30] MED LIST changes: +AMOX1TAB42 PO; +AZAT50TA17 PO; -CRAN1TAB PO; -GLIP10TA9 PO; +INSU3INJ3 SQ; +MRLP17X PO; +NATE1TAB PO; +NRN400 PO; +OMEP20CA9 PO; +OXYC1TAB3 PO; +POLY335019 PO; +PRED-301 PO; +PRED10TA PO; +RXC5 PO; +SENN-65 PO
--- NOTE | 2016-11-30 08:56 | DIAGNOSTIC IMAGING REPORT ---
CT SCAN OF THE ABDOMEN AND PELVIS WITHOUT CONTRAST CLINICAL HISTORY: Left ureteral carcinoma. History of left nephrectomy. COMPARISON STUDY: 317 TECHNIQUE: CT scan of the abdomen and pelvis was performed from the lung bases to the proximal femurs. Images are reviewed in the axial, sagittal, and coronal planes. IV contrast was not administered for this examination. CT DOSE: 248.25 mGy.cm FINDINGS: Lower chest: There is mild cylindrical bronchiectatic change. Liver: The unenhanced liver is normal in size, contour, and attenuation. There is no intrahepatic biliary ductal dilatation. Gallbladder: Unremarkable. Spleen: Normal in size and attenuation. Pancreas: Unremarkable. Adrenal glands: Unremarkable. Kidneys: The patient is status post a left-sided nephrectomy. No right renal masses are visualized in this noncontrast study. No calculi are evident. Bowel: There are no transition zones indicate bowel obstruction. There is mild fecal retention. There is no acute diverticulitis. Scattered colonic diverticula are visualized. The appendix is not visualized with certainty. Peritoneum: There is no intraperitoneal free air or abdominal ascites. Vasculature: The abdominal aorta is normal in course and caliber. Adenopathy: None. Pelvic viscera: The patient is status post a prior hysterectomy. Skeletal structures: No destructive osseous lesions are seen. There is a stable lipoma within the left mid to lower back. There are moderately advanced degenerative changes in the lumbar spine. IMPRESSION: 1. Post surgical changes are prior left nephrectomy 2. No evidence of pathologic adenopathy 3. No CT evidence of metastatic disease 4. Mild fecal retention Electronically signed by: Jorge L Sánchez M.D. 11/30/2016 8:55 AM Dictated Date/Time: 11/30/2016 8:48 AM
== END | disposition home or self-care (01) ==
LOC: C.CTS 08:28
PROVIDERS: ATTEND Urology
DX: C66.2 Malignant neoplasm of left ureter (principal)

== ENCOUNTER 2017-01-18 11:45 | Inpatient (IN) | payer OTHER ==
[~2017-01-18] VITALS: Ht 154.9 cm; Wt 55.8 kg
[~2017-01-18 11:45] MED LIST changes: -AZAT50TA17 PO; -OMEP20CA9 PO; -OXYC1TAB3 PO; -POLY335019 PO; -PRED-301 PO; -RXC5 PO; -SENN-65 PO
[2017-01-18] MEDS ORDERED: ATOR-24 PO (12:22)
[2017-01-18] MEDS ORDERED: POLY335019 PO (12:22)
[2017-01-18] MEDS ORDERED: INSU3INJ3 SQ (12:22)
[2017-01-18] MEDS ORDERED: OMEP20CA9 PO (12:22)
[2017-01-18] MEDS ORDERED: AZAT50TA17 PO (12:22)
[2017-01-18] MEDS ORDERED: MULT-506 PO (12:22)
[2017-01-18] MEDS ORDERED: SITA100T3 PO (12:22)
[2017-01-18] MEDS ORDERED: SENN-65 PO (12:22)
[2017-01-18] MEDS ORDERED: ONDANSETRON INJ 2 MG/ML 2 ML VIAL IV STA (12:33)
[2017-01-18] MEDS ORDERED: SODIUM CHLORIDE 0.9% 1000ML 1,000 ML IV STA (12:33)
[2017-01-18] MEDS ORDERED: MoRPHine SULFATE 4 MG/ML 1 ML CARP\\VIAL IV STA ×2 (12:33→18:22)
--- NOTE | 2017-01-18 13:03 | DIAGNOSTIC IMAGING REPORT ---
CHEST ONE VIEW PORTABLE CLINICAL HISTORY: cough dyspnea COMPARISON STUDY: 01/15/2015 FINDINGS: The bones soft tissues and hemidiaphragms are normal. The cardiomediastinal silhouette is normal. The lungs are clear. The pulmonary vasculature is normal. IMPRESSION: Negative chest. The above report was generated using voice recognition software. It may contain grammatical, syntax or spelling errors. Electronically signed by: Misha Shaver M.D. 01/18/2017 1:02 PM Dictated Date/Time: 01/18/2017 1:02 PM
[2017-01-18 13:19] LABS: URINE APPEARANCE CLEAR (CLEAR); URINE BILIRUBIN NEG (NEG); URINE COLOR YELLOW; URINE NITRITE NEG (NEG); URINE SPECIFIC GRAVITY 1.013 (1.000-1.030); UROBILINOGEN NEG (NEG); ZZUR CULT IF INDIC CLEAN CATCH NO
[2017-01-18 13:27] LABS: MANUAL MICROSCOPIC REQUIRED? NO; REVIEW REQ? NO; SULFASALICYLIC ACID NEG (NEG)
[2017-01-18 13:42] LABS: ALT/SGPT 40 U/L (12-78); BLOOD UREA NITROGEN 19 mg/dl (7-18); BUN/CREATININE RATIO 10.6 (10-20); CALCIUM 9.8 mg/dl (8.5-10.1); CARBON DIOXIDE 27 mmol/L (21-32); CHLORIDE 103 mmol/L (98-107); GLUCOSE 194 mg/dl (70-99); SODIUM 137 mmol/L (136-145)
[2017-01-18 13:43] LABS: BASO % 1.2 %; BASO ABS # 0.05 K/uL (0-0.2); COMPLETE YES; EOS % 6.7 %; HEMATOCRIT 36.2 % (37-47); IG% 0.2 %; LYMPH ABS # 1.13 K/uL (1.2-3.4); MEAN CELL VOLUME 93.5 fL (80-100); MEAN CORPUSCULAR HEMOGLOBIN 31.3 pg (25-34); MEAN CORPUSCULAR HGB CONC 33.4 g/dl (32-36); MEAN PLATELET VOLUME 10.2 fL (7.4-10.4); MONO % 8.4 %; NEUT % 56.5 %; PLATELET COUNT 357 K/uL (130-400); RED BLOOD COUNT 3.87 M/uL (4.2-5.4); WHITE BLOOD COUNT 4.18 K/uL (4.8-10.8)
[2017-01-18 13:47] LABS: ALKALINE PHOSPHATASE 260 U/L (45-117); AST/SGOT 46 U/L (15-37)
--- NOTE | 2017-01-18 13:55 | DIAGNOSTIC IMAGING REPORT ---
LUMBAR SPINE WITHOUT HISTORY: 76 years-old Female with acute low back pain with weakness, fever and rib pain. History of prior back surgery in May. COMPARISON: CT abdomen and pelvis 11/30/2016 TECHNIQUE: Multiple axial CT images of the lumbar spine were obtained without IV contrast. A dose lowering technique was used consistent with the principals of ARIANNE. FINDINGS: The bones are moderately demineralized. Vertebral body heights are well-maintained without compression deformity. The transverse processes and posterior elements are also intact without evidence of acute fracture or dislocation. Imaged ribs also appear intact. There is been prior left-sided nephrectomy. There is atherosclerotic plaquing of the aorta. Partially imaged nonspecific calcifications of the right lower abdomen are again seen. No acute intra-abdominal or intrapelvic abnormality is identified. Paraspinal tissues are within normal limits. Multilevel degenerative changes are seen involving the lumbar spine as below. T12-L1: Mild facet arthropathy with endplate spurring and circumferential annular disc bulge. There is effacement of the ventral thecal sac without significant central canal or foraminal narrowing. L1-L2: Moderate facet arthropathy and endplate spurring is present with ligamentum flavum redundancy and circumferential annular disc bulge. There is effacement of the ventral thecal sac causing mild inferior foraminal narrowing bilaterally. No significant central canal narrowing. L2-L3: Severe intervertebral disc space narrowing with large circumferential annular disc bulge. Additionally, there is posterior spondylitic spurring with a superimposed left paracentral disc extrusion extending caudally 5 mm. This finding in association with moderate facet arthropathy and ligamentum flavum redundancy causes severe central canal and left lateral recess narrowing. Additionally, there is moderate to severe left and moderate right foraminal narrowing. L3-L4: Severe intervertebral disc space narrowing with circumferential annular disc bulge, ligamentum flavum redundancy and severe facet arthrosis causes moderate central canal, moderate right and mild to moderate left foraminal narrowing. L4-L5: Small broad-based posterior disc bulge with moderate facet arthropathy and ligamentum flavum redundancy. There is effacement of the ventral thecal sac without significant central canal narrowing. There is moderate bilateral foraminal narrowing. L5-S1: Moderate intervertebral disc space narrowing and facet arthropathy with ligamentum flavum redundancy. Broad-based posterior disc osteophyte complex effaces the ventral thecal sac without significant central canal narrowing. There is mild to moderate left and moderate right foraminal narrowing. IMPRESSION: 1. No acute fracture or dislocation of the lumbar spine. 2. At L2-L3, severe intervertebral disc space narrowing with large circumferential annular disc bulge and superimposed left paracentral disc extrusion is present in conjunction with facet arthrosis and ligamentum flavum redundancy causing severe central canal, severe left lateral recess, moderate to severe left and moderate right foraminal narrowing. 3. Additional multilevel discogenic degenerative changes are seen as above with moderate central canal narrowing at L3-L4. The above report was generated using voice recognition software. It may contain grammatical, syntax or spelling errors. Electronically signed by: Ej Koo M.D. 01/18/2017 1:53 PM Dictated Date/Time: 01/18/2017 1:43 PM
--- NOTE | 2017-01-18 14:30 | DIAGNOSTIC IMAGING REPORT ---
BILATERAL LOWER EXTREMITY VENOUS DOPPLER HISTORY: Acute chest pain. COMPARISON STUDY: None. FINDINGS: There is normal compressibility, flow, and augmentation within the bilateral lower extremity deep venous systems. IMPRESSION: No DVT within the right or left lower extremity. Electronically signed by: Ej Koo M.D. 01/18/2017 2:29 PM Dictated Date/Time: 01/18/2017 2:28 PM
[2017-01-18] MEDS ORDERED: PRED-301 PO (15:59)
[2017-01-18] MEDS ORDERED: OXYC1TAB3 PO (16:00)
--- NOTE | 2017-01-18 18:29 | EMERGENCY ROOM VISIT NOTE ---
History Report prepared by Katey: Erickson Booker Under the Supervision of: Dr. Baljinder Lyle D.O. First contact with patient: 12:19 Chief Complaint: WEAKNESS Stated Complaint: WEAKNESS,FEVER,BACK,RIB,ARM PAIN Nursing Triage Summary: pt to the ED with c/o back and rib pain with right arm pain that she has had in "15" and 16" with surgery in may which helped for 2 months and then pain returned pt states that she feels weak and worsening pain no new injury History of Present Illness The patient is a 76 year old female who presents to the Emergency Room with complaints of worsening right arm pain that started this year. She rates her pain as a 10/10 in severity. The patient reports that she had woke up this morning and felt hot and states that her arm pain was worsened, which prompted her to visit the ED. The patient states that she has had this arm pain that originally started in her right shoulder to her right hand three years ago. She reports that she has seen a neurologist and pain management for this issue, but they were not able to give her any dye due to her allergy. The patient states that the doctor then had to make his best assumption and gave her pain medication for the pain, but she denies any relief of symptoms. She reports that she was fine last year, but states that the pain has been worsening this year with the pain only from her elbow to her hand. The patient also reports a recent worsening back pain, which had originally started forty years ago. The patient states that the pain is worse with movement and walking and reports no relief of pain. She states that she developed left hip pain in to her left leg that is worse with movement and reports it as a "snapping" sensation whenever she ambulates. The patient states that his started following her kidney removal surgery due to a mass found on her kidney in May of 2015. She states that she also has a cough, shortness of breath worse with walking, chest pains, and waxing and waning rib pain that started two weeks ago. The patient denies headache, change in vision, fevers, abdominal pain, nausea, vomiting, diarrhea, pain with urination, melena, and numbness or weakness. Source of History: patient Onset: this year Position: arm (right) Symptom Intensity: 10/10 Timing: worsening Associated Symptoms: + cough, + chest pain, + SOB, + back pain Review of Systems See HPI for pertinent positives & negatives. A total of 10 systems reviewed and were otherwise negative. 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 Family History Omitted due to advanced age Social History Smoking Status: Never Smoker Marital Status: Housing Status: lives alone Occupation Status: retired Current/Historical Medications Scheduled Atorvastatin (Lipitor), 40 MG PO DAILY Azathioprine (Imuran), 50 MG PO DAILY Insulin Detemir (Levemir Flextouch), 17 UNITS SQ DAILY Multivitamin (Multivitamin), 1 TAB PO DAILY Omeprazole (Prilosec), 20 MG PO BID Polyethylene Glycol 3350 (Miralax), 17 GM PO DAILY Prednisone (Prednisone), 10 MG PO DAILY Sitagliptin Phosphate (Januvia), 100 MG PO QAM Scheduled PRN Oxycodone Immediate Rel Tab (Roxicodone Ir), 5 MG PO Q6H PRN for Pain Sennosides-Docusate Sodium (Senokot S), 1 TAB PO UD PRN for Constipation Allergies Coded Allergies: Iodinated Diagnostic Agents (Verified Allergy, Severe, Anaphylaxis, ) Reported by PT Adhesives (Verified Allergy, Unknown, RASH, 01/18/17) Glyburide (Verified Allergy, Unknown, Hives and Rash, 01/18/17) Reported by PT Latex (Verified Allergy, Unknown, Rash from gloves, 01/18/17) Reported by PT Physical Exam Vital Signs Date Time Temp Pulse Resp B/P (MAP) Pulse Ox O2 Delivery O2 Flow Rate FiO2 01/18/17 18:58 64 20 104/65 98 Room Air 01/18/17 18:05 64 18 128/71 98 Room Air 01/18/17 14:44 61 18 127/66 96 Room Air 01/18/17 13:12 60 18 133/71 99 Room Air 01/18/17 11:46 36.7 81 18 134/80 99 Room Air Physical Exam GENERAL: sitting up in bed, chronically ill appearing, alert, well nourished, no distress, non-toxic EYE EXAM: normal conjunctiva, PERRL and EOM's intact OROPHARYNX: no exudate, no erythema, lips, buccal mucosa, and tongue normal and mucous membranes are moist NECK: supple, no nuchal rigidity, no adenopathy, non-tender LUNGS: Clear to auscultation. Normal chest wall mechanics HEART: no murmurs, S1 normal and S2 normal CHEST: Stable to compression posteriorly and anteriorly. ABDOMEN: abdomen soft, non-tender, normo-active bowel sounds, no masses, no rebound or guarding. BACK: Back is symmetrical on inspection and there is no deformity, no midline tenderness, no CVA tenderness. Acute reproducible pain in lower lumbar tracking to left SI joint into left gluteus. SKIN: no rashes and no bruising UPPER EXTREMITIES: upper extremities are grossly normal. Flexion and extension of elbow, shoulder, and wrist 5/5 bilaterally. Grasp and abduction of digits in tact. Radial pulses 2/4. LOWER EXTREMITIES: No pitting edema. Flexion and extension of hip, knee, ankle, EHL 5/5 bilaterally with initially poor effort on left. Gross sensation in tact. 2/4 distal pulses. Patellar and Achilles reflexes 2/4. NEURO EXAM: Normal sensorium, cranial nerves II-XII grossly intact, normal speech. Gross sensation intact. Medical Decision & Procedures ER Provider Diagnostic Interpretation: Radiology results as stated below per my review and the radiologist's interpretation: BILATERAL LOWER EXTREMITY VENOUS DOPPLER HISTORY: Acute chest pain. COMPARISON STUDY: None. FINDINGS: There is normal compressibility, flow, and augmentation within the bilateral lower extremity deep venous systems. IMPRESSION: No DVT within the right or left lower extremity. Electronically signed by: Ej Koo M.D. 01/18/2017 2:29 PM Dictated Date/Time: 01/18/2017 2:28 PM LUMBAR SPINE WITHOUT HISTORY: 76 years-old Female with acute low back pain with weakness, fever and rib pain. History of prior back surgery in May. COMPARISON: CT abdomen and pelvis 11/30/2016 TECHNIQUE: Multiple axial CT images of the lumbar spine were obtained without IV contrast. A dose lowering technique was used consistent with the principals of ALARA. FINDINGS: The bones are moderately demineralized. Vertebral body heights are well-maintained without compression deformity. The transverse processes and posterior elements are also intact without evidence of acute fracture or dislocation. Imaged ribs also appear intact. There is been prior left-sided nephrectomy. There is atherosclerotic plaquing of the aorta. Partially imaged nonspecific calcifications of the right lower abdomen are again seen. No acute intra-abdominal or intrapelvic abnormality is identified. Paraspinal tissues are within normal limits. Multilevel degenerative changes are seen involving the lumbar spine as below. T12-L1: Mild facet arthropathy with endplate spurring and circumferential annular disc bulge. There is effacement of the ventral thecal sac without significant central canal or foraminal narrowing. L1-L2: Moderate facet arthropathy and endplate spurring is present with ligamentum flavum redundancy and circumferential annular disc bulge. There is effacement of the ventral thecal sac causing mild inferior foraminal narrowing bilaterally. No significant central canal narrowing. L2-L3: Severe intervertebral disc space narrowing with large circumferential annular disc bulge. Additionally, there is posterior spondylitic spurring with a superimposed left paracentral disc extrusion extending caudally 5 mm. This finding in association with moderate facet arthropathy and ligamentum flavum redundancy causes severe central canal and left lateral recess narrowing. Additionally, there is moderate to severe left and moderate right foraminal narrowing. L3-L4: Severe intervertebral disc space narrowing with circumferential annular disc bulge, ligamentum flavum redundancy and severe facet arthrosis causes moderate central canal, moderate right and mild to moderate left foraminal narrowing. L4-L5: Small broad-based posterior disc bulge with moderate facet arthropathy and ligamentum flavum redundancy. There is effacement of the ventral thecal sac without significant central canal narrowing. There is moderate bilateral foraminal narrowing. L5-S1: Moderate intervertebral disc space narrowing and facet arthropathy with ligamentum flavum redundancy. Broad-based posterior disc osteophyte complex effaces the ventral thecal sac without significant central canal narrowing. There is mild to moderate left and moderate right foraminal narrowing. IMPRESSION: 1. No acute fracture or dislocation of the lumbar spine. 2. At L2-L3, severe intervertebral disc space narrowing with large circumferential annular disc bulge and superimposed left paracentral disc extrusion is present in conjunction with facet arthrosis and ligamentum flavum redundancy causing severe central canal, severe left lateral recess, moderate to severe left and moderate right foraminal narrowing. 3. Additional multilevel discogenic degenerative changes are seen as above with moderate central canal narrowing at L3-L4. The above report was generated using voice recognition software. It may contain grammatical, syntax or spelling errors. Electronically signed by: Ej Koo M.D. 01/18/2017 1:53 PM Dictated Date/Time: 01/18/2017 1:43 PM CHEST ONE VIEW PORTABLE CLINICAL HISTORY: cough dyspnea COMPARISON STUDY: 01/15/2015 FINDINGS: The bones soft tissues and hemidiaphragms are normal. The cardiomediastinal silhouette is normal. The lungs are clear. The pulmonary vasculature is normal. IMPRESSION: Negative chest. The above report was generated using voice recognition software. It may contain grammatical, syntax or spelling errors. Electronically signed by: Misha Shaver M.D. 01/18/2017 1:02 PM Dictated Date/Time: 01/18/2017 1:02 PM Laboratory Results 01/18/17 13:10 Red Blood Count 3.87, Mean Corpuscular Volume 93.5, Mean Corpuscular Hemoglobin 31.3, Mean Corpuscular Hemoglobin Concent 33.4, Mean Platelet Volume 10.2, Neutrophils (%) (Auto) 56.5, Lymphocytes (%) (Auto) 27.0, Monocytes (%) (Auto) 8.4, Eosinophils (%) (Auto) 6.7, Basophils (%) (Auto) 1.2, Neutrophils # (Auto) 2.36, Lymphocytes # (Auto) 1.13, Monocytes # (Auto) 0.35, Eosinophils # (Auto) 0.28, Basophils # (Auto) 0.05 01/18/17 13:10 Test 01/18/17 13:02 01/18/17 13:10 Urine Color YELLOW Urine Appearance CLEAR (CLEAR) Urine pH 8.0 (4.5-7.5) Urine Specific [place] 1.013 (1.000-1.030) Urine Protein NEG (NEG) Urine Glucose (UA) 1+ (NEG) Urine Ketones NEG (NEG) Urine Occult Blood NEG (NEG) Urine Nitrite NEG (NEG) Urine Bilirubin NEG (NEG) Urine Urobilinogen NEG (NEG) Urine Leukocyte Esterase NEG (NEG) Urine WBC (Auto) 1-5 /hpf (0-5) Urine RBC (Auto) 0-4 /hpf (0-4) Urine Hyaline Casts (Auto) 1-5 /lpf (0-5) Urine Epithelial Cells (Auto) 5-10 /lpf (0-5) Urine Bacteria (Auto) NEG (NEG) White Blood Count 4.18 K/uL (4.8-10.8) Red Blood Count 3.87 M/uL (4.2-5.4) Hemoglobin 12.1 g/dL (12.0-16.0) Hematocrit 36.2 % (37-47) Mean Corpuscular Volume 93.5 fL (80-100) Mean Corpuscular Hemoglobin 31.3 pg (25-34) Mean Corpuscular Hemoglobin Concent 33.4 g/dl (32-36) Platelet Count 357 K/uL (130-400) Mean Platelet Volume 10.2 fL (7.4-10.4) Neutrophils (%) (Auto) 56.5 % Lymphocytes (%) (Auto) 27.0 % Monocytes (%) (Auto) 8.4 % Eosinophils (%) (Auto) 6.7 % Basophils (%) (Auto) 1.2 % Neutrophils # (Auto) 2.36 K/uL (1.4-6.5) Lymphocytes # (Auto) 1.13 K/uL (1.2-3.4) Monocytes # (Auto) 0.35 K/uL (0.11-0.59) Eosinophils # (Auto) 0.28 K/uL (0-0.5) Basophils # (Auto) 0.05 K/uL (0-0.2) RDW Standard Deviation 44.8 fL (36.4-46.3) RDW Coefficient of Variation 13.0 % (11.5-14.5) Immature Granulocyte % (Auto) 0.2 % Immature Granulocyte # (Auto) 0.01 K/uL (0.00-0.02) Nucleated RBC Absolute Count (auto) 0.00 K/uL (0-0) Nucleated Red Blood Cells % 0.0 % Anion Gap 7.0 mmol/L (3-11) Est Creatinine Clear Calc Drug Dose 19.4 ml/min Estimated GFR () 30.7 Estimated GFR (Non- 26.5 BUN/Creatinine Ratio 10.6 (10-20) Calcium Level 9.8 mg/dl (8.5-10.1) Total Bilirubin 0.4 mg/dl (0.2-1) Direct Bilirubin < 0.1 mg/dl (0-0.2) Aspartate Amino Transf (AST/SGOT) 46 U/L (15-37) Alanine Aminotransferase (ALT/SGPT) 40 U/L (12-78) Alkaline Phosphatase 260 U/L (45-117) Troponin I < 0.015 ng/ml (0-0.045) Total Protein 7.6 gm/dl (6.4-8.2) Albumin 3.6 gm/dl (3.4-5.0) Lipase 215 U/L (73-393) Laboratory results per my review. Medications Administered Medications (Trade) Dose Ordered Sig/Alvarado Route Start Time Stop Time Status Last Admin Dose Admin Sodium Chloride 1,000 ml @ 999 mls/hr Q1H1M STAT IV 01/18/17 12:33 01/18/17 13:33 DC 01/18/17 13:10 999 MLS/HR Ondansetron HCl (Zofran Inj) 4 mg NOW STAT IV 01/18/17 12:33 01/18/17 12:36 DC 01/18/17 13:11 4 MG Morphine Sulfate (MoRPHine SULFATE INJ) 4 mg NOW STAT IV 01/18/17 12:33 01/18/17 12:36 DC 01/18/17 13:11 4 MG Morphine Sulfate (MoRPHine SULFATE INJ) 4 mg NOW STAT IV 01/18/17 18:22 01/18/17 18:26 DC 01/18/17 18:56 4 MG ECG Indication: weakness Rate (beats per minute): 61 Rhythm: normal sinus Findings: T-wave inversion (Inferior), left axis deviation, no ectopy Comparison ECG Date: 01/15/15 Change: no significant change ED Course ED COURSE: Vital signs were reviewed and showed hypertension The patients medical record was reviewed The above diagnostic studies were performed and reviewed. ED treatments and interventions as stated above. 1222: The patient was evaluated in room B02. A complete history and physical examination was performed. 1233: Morphine Sulfate 4 mg IV, Zofran Injection 4 mg IV, Sodium Chloride 1000 ml @ 999 mls/hr IV. 1542: I reevaluated the patient and she was able to get up and ambulate. 1555: I reevaluated the patient and she reports no new weakness or gait. I discussed the findings and she would like to go home. 1810: I reevaluated the patient and she is resting comfortably. 1814: I discussed the patient's case with Dr. William, [facility] [employer]. He understands the patient's condition and agrees to accept the patient. The patient will be further evaluated. 182: Morphine Sulfate 4 mg IV. Medical Decision Differential Diagnosis includes but is not limited to dehydration, stroke, anemia, hypoglycemia, hyponatremia, hypernatremia, urinary tract infection, pneumonia, bronchitis, sepsis, gastroenteritis, additional abdominal pathology, metabolic abnormalities and infections. Medication Reconciliation: I attest that I have personally reviewed the patient' s current medication list. Blood Pressure Screening: The patient was found to have a slightly elevated blood pressure due to circumstances. I do not believe that the patient requires hypertension monitoring. Patient is a 76-year-old female that presents the ER severe back pain associated with right arm pain and shortness of breath. Back pain has been present since 1970s but recently has worsened and for the past 6 months has been walking with the assistance of her . She also admits to right arm pain which has been worked up both times over the years. Her shortness of breath has also been present several months. CBC along with BMP, LFTs, bilirubin and troponin were unremarkable. Creatinine is stable at 1.8. UA was unremarkable. CT shows a large disc herniation at L2 to 3. She is neurologically intact. She is given a small dose of steroids. Duplex of the lower extremity is were negative for DVTs. I perform this as she did complain of a slightly pleuritic chest pain and could not perform a CT PE due to contrast allergy. Troponin was negative with chest pain greater than 8 hours. EKG was unremarkable. Patient eventually felt too weak and could not go home secondary to pain. I felt this was reasonable to observe her overnight with her large disc herniation. [place] Drug Monitoring Program Search Results: patient reviewed within database, no issues identified Consults Time Called: 1813 Consulting Physician: Dorothy Zaldivar [employer] Returned Call: 1813 I discussed the patient's case with Dorothy Zaldivar [employer]. He understands the patient's condition and agrees to accept the patient. The patient will be further evaluated. Impression Primary Impression: Lumbar disc herniation Additional Impressions: Back pain Shortness of breath Leg pain Scribe Attestation The scribe's documentation has been prepared under my direction and personally reviewed by me in its entirety. I confirm that the note above accurately reflects all work, treatment, procedures, and medical decision making performed by me. Departure Information Dispostion Being Evaluated By Hospitalist Prescriptions Oxycodone Immediate Rel Tab (ROXICODONE IR) 5 Mg Tab 5 MG PO Q6H Y for Pain, #15 TAB Prov: Baljinder Lyle, DO 01/18/17 Prednisone (PREDNISONE) 5 Mg Tab 10 MG PO DAILY for 5 Days, #10 TAB Prov: Baljinder Lyle, DO 01/18/17 Referrals Jhnony Molina, D.OCally (PCP) Patient Instructions [facility] Problem Qualifiers Additional Impressions: Back pain Back pain location: back pain in unspecified location Chronicity: unspecified Back pain laterality: unspecified Qualified Codes: M54.9 - Dorsalgia, unspecified Leg pain Laterality: left Qualified Codes: M79.605 - Pain in left leg
[2017-01-18] MEDS ORDERED: GLUCOSE 40% GEL 15 GM TUBE PO PRN ×2 (19:45→20:30)
[2017-01-18] MEDS ORDERED: OXYCODONE HCL IR 5 MG TAB (IMMEDIATE RELEASE) PO PRN ×2 (19:45→20:30)
[2017-01-18] MEDS ORDERED: GLUCAGON FOR INJ 1 MG VIAL SQ PRN ×2 (19:45→20:30)
[2017-01-18] MEDS ORDERED: DEXTROSE 50% 50 ML SYR IV PRN ×2 (19:45→20:30)
[2017-01-18] MEDS ORDERED: GLUCOSE 10 TABS/TUBE PO PRN ×2 (19:45→20:30)
--- NOTE | 2017-01-18 19:49 | DIAGNOSTIC IMAGING REPORT ---
RIGHT ELBOW 3 VIEWS CLINICAL HISTORY: Right elbow pain. FINDINGS: 3 views of the right elbow are obtained. No prior studies are available for comparison at the time of dictation. The skeletal structures are osteopenic. No fracture is seen. The joint spaces are preserved. No joint effusion is identified. Dorsal soft tissue swelling is noted. IMPRESSION: Dorsal soft tissue swelling with no radiographic evidence of right elbow fracture. Electronically signed by: Isaac Choudhury M.D. 01/18/2017 7:48 PM Dictated Date/Time: 01/18/2017 7:47 PM
--- NOTE | 2017-01-18 20:26 | History and Physical ---
History & Physical Date & Time of Service: Jan 18, 2017 at 19:39 Chief Complaint: Weakness,Fever,Back,Rib,Arm Pain Primary Care Physician: Jhonny Molina D.OCally History of Present Illness Source: patient, family, clinic records, hospital records, friend 76 year old female with PMH of DM type 2, Dyslipidemia, CKD stage 3, urothelial carcinoma, chronic back pain, constipation, autoimmune hepatitis presents to the ER with c/o of worsening right arm pain, low back pain and left leg pain an weakness. Pt said that she does have chronic back pain that is getting worst. she said that it seems the pain now radiating to the left leg. she said that her left leg pain and low back pain seem to get worst when she stands due to the pressure that applied to her back and leg. She also has some numbness in her left tight area associated with some weakness in the left leg. Pt also said that she having pain in her right elbow that radiated to her hand and associated with numbness in her fingers. she said that she has to hold her arm, the pain comes and goes and when it happens, her elbow feels cold. she said that the pain has been going on for the last few months. she said that in the past she used to have pain in her right should that is resolved now after she had some chiropractor therapy done. pt said that all her pain are about 10/10 in severity and worsening with movement. she said that she saw pain management , but they wanted to get imaging with contrast but because she is allergic with contrast (had a code blue after receiving contrast) they did do the imaging. Pt said that she was prescribed pain med with no relief. She states that she also had a cough and chest pain, and waxing and waning rib pain about two weeks ago. Denies any headache, change in vision, abdominal pain, nausea, vomiting, diarrhea, palpitation, dizziness, bladder and bowel loss. Past Medical/Surgical History Medical Problems: (1) Diabetes Status: Chronic Carpal tunnel syndrome Constipation CKD stage 3 Urothelial Cancer Dyslipidemia Family History Omitted due to advanced age Social History Smoking Status: Never Smoker Drug Use: none Marital Status: Occupational Status: retired Immunizations History of Pneumococcal: Yes Multi-Drug Resistant Organisms History of MDRO: No Allergies Coded Allergies: Iodinated Diagnostic Agents (Verified Allergy, Severe, Anaphylaxis, ) Reported by PT Adhesives (Verified Allergy, Unknown, RASH, 01/18/17) Glyburide (Verified Allergy, Unknown, Hives and Rash, 01/18/17) Reported by PT Latex (Verified Allergy, Unknown, Rash from gloves, 01/18/17) Reported by PT Home Medications Scheduled Atorvastatin (Lipitor), 40 MG PO DAILY Azathioprine (Imuran), 50 MG PO DAILY Insulin Detemir (Levemir Flextouch), 17 UNITS SQ DAILY Multivitamin (Multivitamin), 1 TAB PO DAILY Omeprazole (Prilosec), 20 MG PO BID Polyethylene Glycol 3350 (Miralax), 17 GM PO DAILY Prednisone (Prednisone), 10 MG PO DAILY Sitagliptin Phosphate (Januvia), 100 MG PO QAM Scheduled PRN Oxycodone Immediate Rel Tab (Roxicodone Ir), 5 MG PO Q6H PRN for Pain Sennosides-Docusate Sodium (Senokot S), 1 TAB PO UD PRN for Constipation Review of Systems Constitutional: No fever, No sweats Eyes: No worsening of vision ENT: No nasal symptoms, No sore throat Respiratory: + shortness of breath, No sputum, No wheezing Cardiovascular: No claudication, No palpitations Abdomen: + constipation, No pain, No nausea, No vomiting Musculoskeletal: + joint pain, No calf pain Genitourinary - Female: No dysuria Neurologic: + weakness, + numbness/tingling, + balance problems Psychiatric: No substance abuse Endocrine: + fatigue, No excessive thirst Hematologic / Lymphatic: No night sweats Integumentary: No rash, No itch Physical Exam Vital Signs Date Time Temp Pulse Resp B/P (MAP) Pulse Ox O2 Delivery O2 Flow Rate FiO2 01/18/17 18:05 64 18 128/71 98 Room Air 01/18/17 14:44 61 18 127/66 96 Room Air 01/18/17 13:12 60 18 133/71 99 Room Air 01/18/17 11:46 36.7 81 18 134/80 99 Room Air General Appearance: WD/WN, no apparent distress Head: normocephalic, atraumatic Eyes: normal inspection, PERRL, EOMI ENT: normal ENT inspection Neck: supple, no JVD Respiratory/Chest: normal breath sounds, no respiratory distress, no accessory muscle use Cardiovascular: regular rate, rhythm, no JVD Abdomen/GI: normal bowel sounds, soft Back: + muscle spasm, + decreased range of motion, + pertinent finding (Low back pain and stiffness) Extremities/Musculoskelatal: no calf tenderness Neurologic/Psych: alert, oriented x 3 Skin: warm/dry, no rash Diagnostics Laboratory Results Results Past 24 Hours Test 01/18/17 13:02 01/18/17 13:10 Range/Units Urine Color YELLOW Urine Appearance CLEAR CLEAR Urine pH 8.0 4.5-7.5 Urine Specific [place] 1.013 1.000-1.030 Urine Protein NEG NEG Urine Glucose (UA) 1+ NEG Urine Ketones NEG NEG Urine Occult Blood NEG NEG Urine Nitrite NEG NEG Urine Bilirubin NEG NEG Urine Urobilinogen NEG NEG Urine Leukocyte Esterase NEG NEG Urine WBC (Auto) 1-5 0-5 /hpf Urine RBC (Auto) 0-4 0-4 /hpf Urine Hyaline Casts (Auto) 1-5 0-5 /lpf Urine Epithelial Cells (Auto) 5-10 0-5 /lpf Urine Bacteria (Auto) NEG NEG White Blood Count 4.18 4.8-10.8 K/uL Red Blood Count 3.87 4.2-5.4 M/uL Hemoglobin 12.1 12.0-16.0 g/dL Hematocrit 36.2 37-47 % Mean Corpuscular Volume 93.5 80-100 fL Mean Corpuscular Hemoglobin 31.3 25-34 pg Mean Corpuscular Hemoglobin Concent 33.4 32-36 g/dl Platelet Count 357 130-400 K/uL Mean Platelet Volume 10.2 7.4-10.4 fL Neutrophils (%) (Auto) 56.5 % Lymphocytes (%) (Auto) 27.0 % Monocytes (%) (Auto) 8.4 % Eosinophils (%) (Auto) 6.7 % Basophils (%) (Auto) 1.2 % Neutrophils # (Auto) 2.36 1.4-6.5 K/uL Lymphocytes # (Auto) 1.13 1.2-3.4 K/uL Monocytes # (Auto) 0.35 0.11-0.59 K/uL Eosinophils # (Auto) 0.28 0-0.5 K/uL Basophils # (Auto) 0.05 0-0.2 K/uL RDW Standard Deviation 44.8 36.4-46.3 fL RDW Coefficient of Variation 13.0 11.5-14.5 % Immature Granulocyte % (Auto) 0.2 % Immature Granulocyte # (Auto) 0.01 0.00-0.02 K/uL Nucleated RBC Absolute Count (auto) 0.00 0-0 K/uL Nucleated Red Blood Cells % 0.0 % Sodium Level 137 136-145 mmol/L Potassium Level 4.0 3.5-5.1 mmol/L Chloride Level 103 98-107 mmol/L Carbon Dioxide Level 27 21-32 mmol/L Anion Gap 7.0 3-11 mmol/L Blood Urea Nitrogen 19 7-18 mg/dl Creatinine 1.80 0.60-1.20 mg/dl Est Creatinine Clear Calc Drug Dose 19.4 ml/min Estimated GFR () 30.7 Estimated GFR (Non- 26.5 BUN/Creatinine Ratio 10.6 10-20 Random Glucose 194 70-99 mg/dl Calcium Level 9.8 8.5-10.1 mg/dl Total Bilirubin 0.4 0.2-1 mg/dl Direct Bilirubin < 0.1 0-0.2 mg/dl Aspartate Amino Transf (AST/SGOT) 46 15-37 U/L Alanine Aminotransferase (ALT/SGPT) 40 12-78 U/L Alkaline Phosphatase 260 45-117 U/L Troponin I < 0.015 0-0.045 ng/ml Total Protein 7.6 6.4-8.2 gm/dl Albumin 3.6 3.4-5.0 gm/dl Lipase 215 73-393 U/L Diagnostic Radiology CHEST ONE VIEW PORTABLE CLINICAL HISTORY: cough dyspnea COMPARISON STUDY: 01/15/2015 FINDINGS: The bones soft tissues and hemidiaphragms are normal. The cardiomediastinal silhouette is normal. The lungs are clear. The pulmonary vasculature is normal. IMPRESSION: Negative chest. The above report was generated using voice recognition software. It may contain grammatical, syntax or spelling errors. Electronically signed by: Misha Shaver M.D. 01/18/2017 1:02 PM Dictated Date/Time: 01/18/2017 1:02 PM LUMBAR SPINE WITHOUT HISTORY: 76 years-old Female with acute low back pain with weakness, fever and rib pain. History of prior back surgery in May. COMPARISON: CT abdomen and pelvis 11/30/2016 TECHNIQUE: Multiple axial CT images of the lumbar spine were obtained without IV contrast. A dose lowering technique was used consistent with the principals of ALARA. FINDINGS: The bones are moderately demineralized. Vertebral body heights are well-maintained without compression deformity. The transverse processes and posterior elements are also intact without evidence of acute fracture or dislocation. Imaged ribs also appear intact. There is been prior left-sided nephrectomy. There is atherosclerotic plaquing of the aorta. Partially imaged nonspecific calcifications of the right lower abdomen are again seen. No acute intra-abdominal or intrapelvic abnormality is identified. Paraspinal tissues are within normal limits. Multilevel degenerative changes are seen involving the lumbar spine as below. T12-L1: Mild facet arthropathy with endplate spurring and circumferential annular disc bulge. There is effacement of the ventral thecal sac without significant central canal or foraminal narrowing. L1-L2: Moderate facet arthropathy and endplate spurring is present with ligamentum flavum redundancy and circumferential annular disc bulge. There is effacement of the ventral thecal sac causing mild inferior foraminal narrowing bilaterally. No significant central canal narrowing. L2-L3: Severe intervertebral disc space narrowing with large circumferential annular disc bulge. Additionally, there is posterior spondylitic spurring with a superimposed left paracentral disc extrusion extending caudally 5 mm. This finding in association with moderate facet arthropathy and ligamentum flavum redundancy causes severe central canal and left lateral recess narrowing. Additionally, there is moderate to severe left and moderate right foraminal narrowing. L3-L4: Severe intervertebral disc space narrowing with circumferential annular disc bulge, ligamentum flavum redundancy and severe facet arthrosis causes moderate central canal, moderate right and mild to moderate left foraminal narrowing. L4-L5: Small broad-based posterior disc bulge with moderate facet arthropathy and ligamentum flavum redundancy. There is effacement of the ventral thecal sac without significant central canal narrowing. There is moderate bilateral foraminal narrowing. L5-S1: Moderate intervertebral disc space narrowing and facet arthropathy with ligamentum flavum redundancy. Broad-based posterior disc osteophyte complex effaces the ventral thecal sac without significant central canal narrowing. There is mild to moderate left and moderate right foraminal narrowing. IMPRESSION: 1. No acute fracture or dislocation of the lumbar spine. 2. At L2-L3, severe intervertebral disc space narrowing with large circumferential annular disc bulge and superimposed left paracentral disc extrusion is present in conjunction with facet arthrosis and ligamentum flavum redundancy causing severe central canal, severe left lateral recess, moderate to severe left and moderate right foraminal narrowing. 3. Additional multilevel discogenic degenerative changes are seen as above with moderate central canal narrowing at L3-L4. The above report was generated using voice recognition software. It may contain grammatical, syntax or spelling errors. Electronically signed by: Ej Koo M.D. 01/18/2017 1:53 PM Dictated Date/Time: 01/18/2017 1:43 PM BILATERAL LOWER EXTREMITY VENOUS DOPPLER HISTORY: Acute chest pain. COMPARISON STUDY: None. FINDINGS: There is normal compressibility, flow, and augmentation within the bilateral lower extremity deep venous systems. IMPRESSION: No DVT within the right or left lower extremity. Electronically signed by: Ej Koo M.D. 01/18/2017 2:29 PM Dictated Date/Time: 01/18/2017 2:28 PM Impression Assessment and Plan Chronic Low Back pain CT lumbar without contrast showed At L2-L3, severe intervertebral disc space narrowing with large circumferential annular disc bulge and superimposed left paracentral disc extrusion is present in conjunction with facet arthrosis and ligamentum flavum redundancy causing severe central canal, severe left lateral recess, moderate to severe left and moderate right foraminal narrowing. will do pain control consult ortho will consult pain management PT/OT fall precaution Left LE pain associated with weakness Possible related to L2-L3 severe intervertebral disc space narrowing Doppler LE no DVT within the right or left lower extremity Will do pain control Fall precaution Right elbow pain will get an xray pain control Chest pain Occurs 2 weeks ago Atypical features No chest pain currently EKG did not show any ST ischemic changes if chest pain occurs, will check CM and repeat EKG DM Type 2 Hba1c 8.9 on 09/11 Check Hba1c continue Levemir insulin coverage Hold Januvia CKD stage 3 creatine btw 1.5 to 1.7 since June creatine today 1.8 will avoid nephrotoxic agent Dyslipidemia continue statin Constipation on miralax and senokot prn DVT px on heparin subq CODE status DNR Level of Care Med/Surg VTE Prophylaxis VTE Risk Assessment Done? Y/N: Yes Risk Level: Moderate Given or contraindicated: Unfractionated heparin SQ
[2017-01-18] MEDS: PANTOprazole SOD 40 MG TAB PO SCH (22:00)
[2017-01-18] MEDS: INSULIN ASPART 100 UNITS/ML 3 ML PEN SC SCH (22:03)
[2017-01-18 22:07] VITALS: BP 126/80; PULSE 60; TEMP 36.5; O2SAT 100; BMI 23.2
[2017-01-18 23:31] VITALS: BP 102/65; PULSE 54; TEMP 36.5; O2SAT 95
[2017-01-19] MEDS ORDERED: HEPARIN SOD 5000 UNIT/0.5 ML CARP SQ SCH (06:00)
[2017-01-19 07:35] VITALS: BP 101/62; PULSE 55; TEMP 36.7; O2SAT 97
[2017-01-19 07:41] LABS: HEMATOCRIT 33.7 % (37-47); MEAN CELL VOLUME 94.4 fL (80-100); MEAN CORPUSCULAR HEMOGLOBIN 30.3 pg (25-34); PLATELET COUNT 320 K/uL (130-400); RED BLOOD COUNT 3.57 M/uL (4.2-5.4); WHITE BLOOD COUNT 4.11 K/uL (4.8-10.8)
[2017-01-19 07:49] LABS: ESTIMATED AVERAGE GLUCOSE 217 mg/dl; HA1C FLAG Normal (Normal)
[2017-01-19 08:19] LABS: BUN/CREATININE RATIO 12.6 (10-20); CALCIUM 8.9 mg/dl (8.5-10.1); CREATININE 1.7 mg/dl (0.60-1.20); POTASSIUM 4.1 mmol/L (3.5-5.1)
[2017-01-19] MEDS: PANTOprazole SOD 40 MG TAB PO SCH ×2 (08:27→20:29)
[2017-01-19] MEDS: POLYETHYLENE (MIRALAX) 17 GM PACK PO SCH (08:28)
[2017-01-19] MEDS: MULTIVITAMIN TAB PO SCH (08:28)
[2017-01-19] MEDS: INSULIN ASPART 100 UNITS/ML 3 ML PEN SC SCH ×4 (08:33→20:30)
[2017-01-19] MEDS: ATORVASTATIN 40 MG TAB PO SCH (08:35)
[2017-01-19] MEDS ORDERED: AZATHIOPRINE 50 MG TAB PO SCH (09:00)
[2017-01-19] MEDS ORDERED: INSULIN DETEMIR FLEXPEN/FLEX TOUCH 100 UNITS/ML 3ML SQ SCH (09:00)
--- NOTE | 2017-01-19 09:31 | DIAGNOSTIC IMAGING REPORT ---
LUMBAR SPINE W/O CONTRAST HISTORY: Back pain. Neuropathy. back and leg pain TECHNIQUE: Multiplanar multisequence MRI of the lumbar spine was performed without the use of contrast. COMPARISON: None. FINDINGS: For the purpose of the report the L5-S1 disc space will be located on axial image 24 of 26. Considerable degenerative disc change throughout. This is most prominent at L2-L3 and L3-L4 with reactive edematous change of the vertebral endplates. No evidence for compression deformity. L1-L2: Minimal broad-based disc bulge. L2-L3: Rather prominent left posterior disc herniation. Focal impact left anterior aspect of the thecal sac with considerable narrowing left neuroforamina. Moderate multifactorial narrowing of the spinal canal again some more prominent on the left. L3-L4: Broad-based disc herniation. Rather significant multifactorial narrowing of the spinal canal. Bilateral moderate foraminal narrowing. L4-L5: Broad-based bulging disc with minimal impact anterior thecal sac. Neuroforamina are patent bilaterally. L5-S1: Minimal broad-based disc bulge. Minimal impact anterior thecal sac. Neuroforamina show minimal narrowing bilaterally primarily secondary to degenerative and hyperplastic change of the posterior facets. IMPRESSION: 1. Rather prominent left posterior disc herniation L2-L3 with significant narrowing left neuroforamina and moderate multifactorial narrowing of the spinal canal. 2. Significant multifactorial spinal stenosis L3-L4 associated with a broad-based disc herniation. 3. Broad-based disc bulge L4-L5 with minimal disc bulge L5-S1 4. Considerable degenerative intervertebral disc change most prominent at L2-L3 and L3-L4. The above report was generated using voice recognition software. It may contain grammatical, syntax or spelling errors. Electronically signed by: Misha hSaver M.D. 01/19/2017 9:29 AM Dictated Date/Time: 01/19/2017 9:22 AM
--- NOTE | 2017-01-19 09:34 | Pain Management Consultation ---
Pain Management Consultation Date of Consultation Jan 19, 2017. Reason for Consultation Lumbar radiculopathy History Mrs. Gonzalez is a 76 year old white female that has been seen in consultation at the [facility] for lumbar radiculopathy. Patient states that she does have chronic low back pain but over the last 2 weeks her symptoms have been worsening. She describes 50% axial low back pain and 50% radicular pain along the left left groin/anterior thigh. Pain is described as a burning/ aching pain. Symptoms are aggravated by standing and alleviated with laying supine. Pain is currently 2/10. When she is standing she feels like her left leg will go weak and may give out of her. She states that the radicular symptoms into the left groin/anterior thigh are new. When she is weight bearing her pain is 10/10. She does also report chronic paresthesias along the right forearm and into her right fingers. Patient denies any bowel/bladder incontinence, foot drop, or falls. Case discussed with Dr. Faria Past Medical/Surgical History (1) Ureteral tumor (2) Diabetes mellitus (3) Chronic kidney disease (4) Autoimmune hepatitis (5) Dyslipidemia Family History Omitted due to advanced age Social / Work History Smokeless Tobacco Use: No Alcohol Use: none Drug Use: none Marital Status: Occupation: retired Allergies Coded Allergies: Iodinated Diagnostic Agents (Verified Allergy, Severe, Anaphylaxis, ) Reported by PT Adhesives (Verified Allergy, Unknown, RASH, 01/18/17) Glyburide (Verified Allergy, Unknown, Hives and Rash, 01/18/17) Reported by PT Latex (Verified Allergy, Unknown, Rash from gloves, 01/18/17) Reported by PT Medications Current Inpatient Medications Medications (Trade) Dose Ordered Sig/Alvarado Route Start Time Stop Time Status Last Admin Dose Admin Atorvastatin Calcium (Lipitor Tab) 40 mg DAILY PO 01/19/17 09:00 02/18/17 08:59 Azathioprine (Imuran Tab) 50 mg DAILY PO 01/19/17 09:00 02/18/17 08:59 01/19/17 08:33 50 MG Insulin Detemir (Levemir Flexpen/ FlexTouch) 17 units DAILY SQ 01/19/17 09:00 02/18/17 08:59 01/19/17 08:32 17 UNITS Multivitamins (Multivitamin Tab) 1 tab DAILY PO 01/19/17 09:00 02/18/17 08:59 01/19/17 08:28 1 TAB Pantoprazole Sodium (Protonix Tab) 40 mg BID PO 01/18/17 21:00 02/17/17 20:59 01/19/17 08:27 40 MG Polyethylene (Miralax Powder Packet) 17 gm DAILY PO 01/19/17 09:00 02/18/17 08:59 Glucose (Glucose 40% Gel) 15-30 GRAMS 15 GRAMS... UD PRN PO 01/18/17 19:45 02/17/17 19:44 01/18/17 20:26 15 GM Glucose (Glucose Chew Tab) 4-8 Tablets 4 Tabl... UD PRN PO 01/18/17 19:45 02/17/17 19:44 Dextrose (Dextrose 50% 50ML Syringe) 25-50ML OF 50% DW IV FOR... UD PRN IV 01/18/17 19:45 02/17/17 19:44 Glucagon (Glucagon Inj) 1 mg UD PRN SQ 01/18/17 19:45 02/17/17 19:44 Heparin Sodium (Porcine) (Heparin Sq 5000 Unit/0.5ml) 5,000 unit Q8 SQ 01/19/17 06:00 02/18/17 05:59 01/19/17 05:57 5,000 UNIT Oxycodone HCl (Roxicodone Immediate Rel Tab) 5 mg Q6 PRN PO 01/18/17 20:30 02/01/17 20:29 Insulin Aspart (novoLOG ASPART) SLIDING SCALE If C... ACHS SC 01/18/17 21:00 02/17/17 20:59 01/19/17 08:33 2 UNITS Review of Systems Denies any constitutional, cardiac, pulmonary, neurological, GI, , extremity, endocrine, neuro, ENT, dermatological, or musculoskeletal complaints other than stated in HPI Physical Exam Height & Weight: Height 5 feet, 1.00 inches. Weight 55.800 (Kilograms) 123 (Pounds) Last Vital Signs Documentation Date Time Temp Pulse Resp B/P (MAP) Pulse Ox O2 Delivery O2 Flow Rate FiO2 01/19/17 07:35 36.7 55 16 101/62 (75) 97 Room Air Exam: GENERAL: Mrs. Gonzalez is a 76 y/o white female that appears her stated age. Speech and cognition is intact. Mood and affect is appropriate. She is sitting quietly in the hospital bed, in no acute distress. HEAD: Normocephalic; atraumatic. EYES: Pupils are round, equal, and reactive to light; EOM intact. ENT: No external ear discharge or lesions. No rhinorrhea or epistaxis. No mucosal lesions. CHEST: Regular chest respiration and excursion. EXTREMITIES: 4/5 strength of the left lower extremity as compared to the right which is 5/5. No tenderness of the bilateral greater trochanteric bursa. Negative SLR bilaterally. BACK: Full ROM. No midline or facet tenderness. No SI joint tenderness. No paravertebral or quadratus lumborum muscle spasm or tenderness. NEURO: CN II-XII grossly intact with no focal deficits noted. Gait not witnessed. SKIN: No lesions, erythema, or rashes noted. Laboratory Laboratory Results (Last CBC): 01/19/17 07:31 Imaging MRI Findings Heading for lumbar MRI this morning CT Findings lumbar spine CT 01/18/17 IMPRESSION: 1. No acute fracture or dislocation of the lumbar spine. 2. At L2-L3, severe intervertebral disc space narrowing with large circumferential annular disc bulge and superimposed left paracentral disc extrusion is present in conjunction with facet arthrosis and ligamentum flavum redundancy causing severe central canal, severe left lateral recess, moderate to severe left and moderate right foraminal narrowing. 3. Additional multilevel discogenic degenerative changes are seen as above with moderate central canal narrowing at L3-L4. Assessment 1. Lumbar radiculitis 2. Severe spinal stenosis at L2-3, moderate at L3-4 3. Stage 3 chronic kidney disease 4. Diabetes mellitus Recommendations 1. Will initiate the patient on Gabapentin 100mg QHS for possibly increased pain relief. 2. She will take Oxycodone 5mg x 6 hours PRN pain. 3. Would not recommend epidural injection at this point due to comorbidities including chronic kidney disease and diabetes mellitus.
[2017-01-19] MEDS ORDERED: PHARMACY GLYCEMIC MGMT CONSULT SCH (12:03)
--- NOTE | 2017-01-19 13:55 | Progress Note ---
Internal Med Progress Note Date of Service: Jan 19, 2017. Provider Documentation: SUBJECTIVE: no Complain of back pain as she is lying on bed no SOB or chest discomfort no cough symptom OBJECTIVE: Vital Signs-as noted below Exam: General-no sign of distress Eyes-sclera non icteric ENT-NAD Neck-no JVD Lungs-CTA , no wheeze or rales Heart-regular S1/S2 Abdomen-soft, non tender Extremities-no lower ext edema Neuro-no focal deficit , AAO x3 Lab data as noted below. ASSESSMENT & PLAN: Chronic Low Back pain /Lumber spinal stenosis CT lumbar without contrast showed At L2-L3, severe intervertebral disc space narrowing with large circumferential annular disc bulge and superimposed left paracentral disc extrusion is present in conjunction with facet arthrosis and ligamentum flavum redundancy causing severe central canal, severe left lateral recess, moderate to severe left and moderate right foraminal narrowing. -appreciate input form pain management -appreciate input from Orthopedics Dr Manzano -scheduled for Lumber decompression surgery tomorrow -pre op eval : pt appears to be in acceptable medical status to proceed for lumber spinal surgery no further images to investigation needed Sub q heparin D/raquel ordered for NPO past midnight Left LE pain associated with weakness Possible related to L2-L3 severe intervertebral disc space narrowing Doppler LE no DVT within the right or left lower extremity scheduled to spinal decompression surgery today Right elbow pain no symptom now xray : IMPRESSION: Dorsal soft tissue swelling with no radiographic evidence of right elbow fracture. pain control DM Type 2 Hba1c 9 ( pt mentions of being on PO Prednisone till 12/26 for autoimmune hepatitis ) BSG may get elevated post op spinal surgery due to steroid tx on Levemir insulin coverage Hold [facility] pharmacy glycemic consult requested CKD stage 3 creatine btw 1.5 to 1.7 follow PRP avoid nephrotoxins Dyslipidemia continue statin Constipation on miralax and senokot prn CODE status DNR DVT PROPHYLAXIS hold sub q for spinal surgery SCD and teds ordered DISPOSITION to be determined scheduled to have spinal decompression surgery tomorrow depending improvement -possible discharge home vs rehab updated at bedside Vital Signs: Date Time Temp Pulse Resp B/P (MAP) Pulse Ox O2 Delivery O2 Flow Rate FiO2 01/19/17 09:42 Room Air 01/19/17 07:35 36.7 55 16 101/62 (75) 97 Room Air 01/19/17 00:00 Room Air 01/18/17 23:31 36.5 54 18 102/65 (77) 95 Room Air 01/18/17 22:07 36.5 60 18 126/80 100 Room Air 01/18/17 20:26 60 20 129/70 99 Room Air 01/18/17 18:58 64 20 104/65 98 Room Air 01/18/17 18:05 64 18 128/71 98 Room Air 01/18/17 14:44 61 18 127/66 96 Room Air Lab Results: Results Past 24 Hours Test 01/18/17 19:46 01/18/17 20:28 01/18/17 22:02 01/19/17 07:25 Range/Units Bedside Glucose 75 100 105 178 70-90 mg/dl Test 01/19/17 07:31 01/19/17 11:05 Range/Units White Blood Count 4.11 4.8-10.8 K/uL Red Blood Count 3.57 4.2-5.4 M/uL Hemoglobin 10.8 12.0-16.0 g/dL Hematocrit 33.7 37-47 % Mean Corpuscular Volume 94.4 80-100 fL Mean Corpuscular Hemoglobin 30.3 25-34 pg Mean Corpuscular Hemoglobin Concent 32.0 32-36 g/dl RDW Standard Deviation 45.7 36.4-46.3 fL RDW Coefficient of Variation 13.2 11.5-14.5 % Platelet Count 320 130-400 K/uL Mean Platelet Volume 10.0 7.4-10.4 fL Sodium Level 138 136-145 mmol/L Potassium Level 4.1 3.5-5.1 mmol/L Chloride Level 103 98-107 mmol/L Carbon Dioxide Level 27 21-32 mmol/L Anion Gap 8.0 3-11 mmol/L Blood Urea Nitrogen 22 7-18 mg/dl Creatinine 1.70 0.60-1.20 mg/dl Est Creatinine Clear Calc Drug Dose 20.6 ml/min Estimated GFR () 32.9 Estimated GFR (Non- 28.4 BUN/Creatinine Ratio 12.6 10-20 Random Glucose 164 70-99 mg/dl Estimated Average Glucose 217 mg/dl Hemoglobin A1c 9.2 4.5-5.6 % Calcium Level 8.9 8.5-10.1 mg/dl Bedside Glucose 134 70-90 mg/dl
[2017-01-19 15:14] VITALS: BP 107/68; PULSE 60; TEMP 36.8; O2SAT 96
--- NOTE | 2017-01-19 15:29 | Pharmacy Progress Note ---
Glycemic Control Intl Consult Date of Service Jan 19, 2017. Scope Glycemic Pharmacist consulted by Dr Shelton on 01/19/17 for glycemic control and to write orders per [facility] inpatient glycemic control protocol Objective Weight (Kilograms): 55.800 Accuchecks BSG (last 24hrs): Test 01/18/17 19:46 01/18/17 20:28 01/18/17 22:02 01/19/17 07:25 Bedside Glucose 75 mg/dl (70-90) 100 mg/dl (70-90) 105 mg/dl (70-90) 178 mg/dl (70-90) Test 01/19/17 07:31 01/19/17 11:05 Random Glucose 164 mg/dl (70-99) Bedside Glucose 134 mg/dl (70-90) Laboratory Data (last 24hrs) Test 01/19/17 07:31 Anion Gap 8.0 mmol/L BUN/Creatinine Ratio 12.6 Blood Urea Nitrogen 22 mg/dl Creatinine 1.70 mg/dl Hemoglobin A1c 9.2 % Potassium Level 4.1 mmol/L Sodium Level 138 mmol/L White Blood Count 4.11 K/uL HbA1c Test 01/19/17 07:31 Hemoglobin A1c 9.2 % (4.5-5.6) H Recent Pertinent Medications Outpatient Anti-diabetic Regimen: * Levemir 17 units SQ daily * Januvia 100 mg po daily * of note, patient recently on prednisone for autoimmune hepatitis - stopped on 12/26 The patient is currently receiving: * Basal insulin: Levemir 17 units every 24 hours * Correctional Insulin: Novolog Correction per scale ACHS Goal Range: Low 100 mg/dL - High 140 mg/dL Correction Factor: 80 mg/dL/unit * Prandial insulin: Per carb ratio of 1 unit per 26 grams CHO consumed * Oral Agents: on hold Risk Factors for Insulin Resistance: * Diet: T2DM Assessment & Plan ASSESSMENT: * 76 yr old T2DM female admitted with back and leg pain. * Patient was ordered her home dose of Levemir 17 units daily on admission. Based on her A1c it would appear that home insulin dose is not adequate, however , she was recently on prednisone for autoimmune hepatitis for unknown length of time (pt reports stopping prednisone on 12/26). Previous A1c drawn in May of 2016 was 7.8 %. * Patient will be made NPO at midnight for spinal decompression surgery tomorrow with Dr. Manzano. * Will continue to utilize SQ basal bolus insulin regimen which is the recommended regimen for inpatient glycemic control. * Will base initial doses off of anticipated total daily dose ~ 20 units (this is equivalent to wt/stress 2) * Re-distribute regimen to 50% basal and 50% bolus * ADA & AACE recommend a goal blood sugar range 140-180 mg/dl for the majority of critically ill & non-critically ill patients. However, more stringent targets may be selected in individual cases. Will utilize more stringent goal of 100-140mg/dl based on patient age & comorbidities. Additionally, tighter glycemic control is warranted to facilitate wound/infection healing. PLAN FOR INPATIENT GLYCEMIC CONTROL: * Holding outpatient oral diabetes medications * Basal insulin with Levemir * 10 - 15 units SQ qAM * 10 units for BSG less than 140 mg/dL * 15 units for BSG 140 mg/dL or more * Correctional Insulin with NOVOLOG per scale ACHS or Q6hrs while NPO * Goal Range: Low 100 mg/dL - High 140 mg/dL * Tighten Correction Factor to: 40 mg/dL/unit * Tighten Nutritional / Prandial insulin to carb ratio of 1 unit per 15 grams CHO consumed * Please note that the plan above was derived based on current level of insulin resistance and hospital stress. These recommendations are appropriate for inpatient admission only. Plan of care upon discharge will need to be reassessed to avoid potential outpatient hypo/hyperglycemia. Thank you.
[2017-01-19 15:41] VITALS: Ht 154.9 cm; Wt 55.8 kg
--- NOTE | 2017-01-19 15:50 | Orthopedic Consultation ---
Orthopedic Consultation Date of Consultation: Jan 19, 2017. Attending Physician: Sapna Shelton M.D. Reason for Consultation: Back and bilateral leg pain left greater than right. History of Present Illness Primary pleasant 76-year-old female that's noted a marked decline in status over the past several months. She denies any specific trauma fall or event. She notes pain across the lumbosacral junction extending down the legs. The left leg is markedly worse the right with a component weakness. Any prolonged standing and walking is becoming markedly limited in nature. The pain progressed to the point yesterday which required admission to the hospital. She denies any loss of bowel or bladder function. Denies any perineal numbness. She's not had any recent epidural injections. Past Medical/Surgical History Medical Problems: (1) Back pain Status: Acute (2) Colitis Status: Acute (3) Leg pain Status: Acute (4) Lumbar disc herniation Status: Acute (5) Shortness of breath Status: Acute (6) UTI (urinary tract infection) Status: Acute Family History Omitted due to advanced age Social History Smoking Status: Never Smoker Smokeless Tobacco Use: No Alcohol Use: none Drug Use: none Marital Status: Housing Status: lives alone Occupation Status: retired Allergies Coded Allergies: Iodinated Diagnostic Agents (Verified Allergy, Severe, Anaphylaxis, ) Reported by PT Adhesives (Verified Allergy, Unknown, RASH, 01/18/17) Glyburide (Verified Allergy, Unknown, Hives and Rash, 01/18/17) Reported by PT Latex (Verified Allergy, Unknown, Rash from gloves, 01/18/17) Reported by PT Home Medications Scheduled Atorvastatin (Lipitor), 40 MG PO DAILY Azathioprine (Imuran), 50 MG PO DAILY Insulin Detemir (Levemir Flextouch), 17 UNITS SQ DAILY Multivitamin (Multivitamin), 1 TAB PO DAILY Omeprazole (Prilosec), 20 MG PO BID Polyethylene Glycol 3350 (Miralax), 17 GM PO DAILY Prednisone (Prednisone), 10 MG PO DAILY Sitagliptin Phosphate (Januvia), 100 MG PO QAM Scheduled PRN Oxycodone Immediate Rel Tab (Roxicodone Ir), 5 MG PO Q6H PRN for Pain Sennosides-Docusate Sodium (Senokot S), 1 TAB PO UD PRN for Constipation Current Inpatient Medications Current Inpatient Medications Medications (Trade) Dose Ordered Sig/Alvarado Route Start Time Stop Time Status Last Admin Dose Admin Atorvastatin Calcium (Lipitor Tab) 40 mg DAILY PO 01/19/17 09:00 02/18/17 08:59 Azathioprine (Imuran Tab) 50 mg DAILY PO 01/19/17 09:00 02/18/17 08:59 Future Hold 01/19/17 08:33 50 MG Multivitamins (Multivitamin Tab) 1 tab DAILY PO 01/19/17 09:00 02/18/17 08:59 01/19/17 08:28 1 TAB Pantoprazole Sodium (Protonix Tab) 40 mg BID PO 01/18/17 21:00 02/17/17 20:59 01/19/17 08:27 40 MG Polyethylene (Miralax Powder Packet) 17 gm DAILY PO 01/19/17 09:00 02/18/17 08:59 Glucose (Glucose 40% Gel) 15-30 GRAMS 15 GRAMS... UD PRN PO 01/18/17 19:45 02/17/17 19:44 01/18/17 20:26 15 GM Glucose (Glucose Chew Tab) 4-8 Tablets 4 Tabl... UD PRN PO 01/18/17 19:45 02/17/17 19:44 Dextrose (Dextrose 50% 50ML Syringe) 25-50ML OF 50% DW IV FOR... UD PRN IV 01/18/17 19:45 02/17/17 19:44 Glucagon (Glucagon Inj) 1 mg UD PRN SQ 01/18/17 19:45 02/17/17 19:44 Heparin Sodium (Porcine) (Heparin Sq 5000 Unit/0.5ml) 5,000 unit Q8 SQ 01/19/17 06:00 02/18/17 05:59 Future Hold 01/19/17 05:57 5,000 UNIT Oxycodone HCl (Roxicodone Immediate Rel Tab) 5 mg Q6 PRN PO 01/18/17 20:30 02/01/17 20:29 Insulin Aspart (novoLOG ASPART) SLIDING SCALE If C... ACHS SC 01/18/17 21:00 02/17/17 20:59 01/19/17 13:19 3 UNITS Miscellaneous Information (Consult Glycemic Management Pharmacy) 1 ea UD N/A 01/19/17 12:03 02/18/17 12:02 Insulin Detemir (Levemir Flexpen/ FlexTouch) SEE PROTOCOL TEXT DAILY SQ 01/20/17 09:00 02/19/17 08:59 Physical Exam Date Time Temp Pulse Resp B/P (MAP) Pulse Ox O2 Delivery O2 Flow Rate FiO2 01/19/17 15:14 36.8 60 18 107/68 (81) 96 Room Air 01/19/17 09:42 Room Air 01/19/17 07:35 36.7 55 16 101/62 (75) 97 Room Air 01/19/17 00:00 Room Air 01/18/17 23:31 36.5 54 18 102/65 (77) 95 Room Air 01/18/17 22:07 36.5 60 18 126/80 100 Room Air 01/18/17 20:26 60 20 129/70 99 Room Air 01/18/17 18:58 64 20 104/65 98 Room Air 01/18/17 18:05 64 18 128/71 98 Room Air On exam she is alert and oriented. She is able to move about the bed without significant discomfort. She does exhibit a negative log roll bilaterally. Sensory symmetric and intact. She does exhibit weakness to quadriceps of the left musculature compared to the right. Plantarflexion dorsiflexion symmetric. There are no abnormal skin markings. Laboratory Results Last 24 Hours Test 01/18/17 19:46 01/18/17 20:28 01/18/17 22:02 01/19/17 07:25 Bedside Glucose 75 mg/dl 100 mg/dl 105 mg/dl 178 mg/dl Test 01/19/17 07:31 01/19/17 11:05 White Blood Count 4.11 K/uL Red Blood Count 3.57 M/uL Hemoglobin 10.8 g/dL Hematocrit 33.7 % Mean Corpuscular Volume 94.4 fL Mean Corpuscular Hemoglobin 30.3 pg Mean Corpuscular Hemoglobin Concent 32.0 g/dl RDW Standard Deviation 45.7 fL RDW Coefficient of Variation 13.2 % Platelet Count 320 K/uL Mean Platelet Volume 10.0 fL Sodium Level 138 mmol/L Potassium Level 4.1 mmol/L Chloride Level 103 mmol/L Carbon Dioxide Level 27 mmol/L Anion Gap 8.0 mmol/L Blood Urea Nitrogen 22 mg/dl Creatinine 1.70 mg/dl Est Creatinine Clear Calc Drug Dose 20.6 ml/min Estimated GFR () 32.9 Estimated GFR (Non- 28.4 BUN/Creatinine Ratio 12.6 Random Glucose 164 mg/dl Estimated Average Glucose 217 mg/dl Hemoglobin A1c 9.2 % Calcium Level 8.9 mg/dl Bedside Glucose 134 mg/dl Assessment & Plan Assessment spinal stenosis L2 3 L3 4. Plan long discussion with this patient and her reviewing her MRI findings clinical course and treatment options. She is a poor candidate for epidural injections secondary to her medical history and I would not expect him provide any long-term relief in light of the severity of her spinal stenosis. I did describe that she has both underlying spinal stenosis with a superimposed herniated nucleus pulposus at L2- 3 on the left. Surgically she would require a lumbar decompression L2 3 L3 4 with posterior lateral fusion and instrumentation. Risks benefits pros cons and alternatives were outlined in detail. Risk include but not limited to from anesthesia blindness sterile process nerve damage but does current transfusion infection requiring reoperation. Benefits of a marked improvement of her neurogenic claudication. She understands agrees. She would like to pursue surgery. She will made nothing by mouth after midnight will hopefully perform surgery tomorrow.
--- NOTE | 2017-01-19 17:54 | Anesthesiology Progress Note ---
Anesthesia Progress Note Date of Service Jan 19, 2017. Progress Notes This is a 76 y/o w female with lumbar disc herniation and spinal stenosis presenting for a lumbar decompression and fusion.PMHx is significant for Hyperlipidemia,? HTN,IDDM,DJD,CKD stage 3, anemia,Hx/o autoimmune Hepatitis and Hx/o Left nephroureterectomy for cancer.Discussed anesthesia w/patient,risks vs benefits,all questions answered. ASA 3
[2017-01-19 23:36] VITALS: BP 113/73; PULSE 65; TEMP 37; O2SAT 96
[2017-01-20] VITALS (9 sets, daily range): BP systolic 96–112; BP diastolic 59–71; PULSE 59–80; TEMP 34.6–36.8; O2SAT 95–100
[2017-01-20 07:29] LABS: PROTHROMBIN TIME (PATIENT) 10.7 SECONDS (9.0-12.0)
[2017-01-20 08:07] LABS: BUN/CREATININE RATIO 12.8 (10-20); CALCIUM 9.1 mg/dl (8.5-10.1); CREATININE 1.9 mg/dl (0.60-1.20); POTASSIUM 4.2 mmol/L (3.5-5.1)
[2017-01-20] MEDS: POLYETHYLENE (MIRALAX) 17 GM PACK PO SCH (08:34)
[2017-01-20] MEDS: ATORVASTATIN 40 MG TAB PO SCH (08:34)
[2017-01-20] MEDS: PANTOprazole SOD 40 MG TAB PO SCH ×2 (08:37→20:22)
[2017-01-20] MEDS: MULTIVITAMIN TAB PO SCH (08:37)
[2017-01-20] MEDS: INSULIN ASPART 100 UNITS/ML 3 ML PEN SC SCH ×4 (08:45→21:28)
[2017-01-20] MEDS ORDERED: INSULIN DETEMIR FLEXPEN/FLEX TOUCH 100 UNITS/ML 3ML SQ SCH ×2 (09:00→18:00)
--- NOTE | 2017-01-20 10:24 | Progress Note ---
Internal Med Progress Note Date of Service: Jan 20, 2017. Provider Documentation: SUBJECTIVE: had an uneventful night back pain is well controlled as long she lays in bed no cough or sob no fever scheduled for lumber spinal decompression surgery today OBJECTIVE: Vital Signs-as noted below Exam: General-no sign of distress Eyes-sclera non icteric ENT-NAD Neck-no JVD Lungs-CTA , no wheeze or rales Heart-regular S1/S2 Abdomen-soft, non tender Extremities-no lower ext edema Neuro-no focal deficit , AAO x3 Lab data as noted below. ASSESSMENT & PLAN: Chronic Low Back pain /Lumber spinal stenosis CT lumbar without contrast showed At L2-L3, severe intervertebral disc space narrowing with large circumferential annular disc bulge and superimposed left paracentral disc extrusion is present in conjunction with facet arthrosis and ligamentum flavum redundancy causing severe central canal, severe left lateral recess, moderate to severe left and moderate right foraminal narrowing. -appreciate input form pain management -appreciate input from Orthopedics Dr Manzano -scheduled for Lumber decompression surgery today pt continued to be medially stable to undergo spinal procedure -pre op eval : pt appears to be in acceptable medical status to proceed for lumber spinal surgery no further images to investigation needed Left LE pain associated with weakness Possible related to L2-L3 severe intervertebral disc space narrowing Doppler LE no DVT within the right or left lower extremity scheduled to spinal decompression surgery today Right elbow pain no symptom now xray : IMPRESSION: Dorsal soft tissue swelling with no radiographic evidence of right elbow fracture. DM Type 2 Hba1c 9 ( pt mentions of being on PO Prednisone till 12/26 for autoimmune hepatitis ) BSG may get elevated post op spinal surgery due to steroid tx on Levemir insulin coverage Januvia D/raquel -pt is not interested to continue Januvia in future pharmacy glycemic consult requested -appreciate input CKD stage 3 JERONIMO on CkD stage 3 Cr 1.9 now will order gentle IV fluids follow H&H and PRP for post op acute blood loss anemia and dehydration creatine btw 1.5 to 1.7 follow PRP avoid nephrotoxins Dyslipidemia continue statin Constipation on miralax and senokot prn CODE status DNR DVT PROPHYLAXIS hold sub q for spinal surgery SCD and teds ordered DISPOSITION to be determined scheduled to have spinal decompression surgery today depending improvement -possible discharge home vs rehab updated at bedside Vital Signs: Date Time Temp Pulse Resp B/P (MAP) Pulse Ox O2 Delivery O2 Flow Rate FiO2 01/20/17 09:43 Room Air 01/20/17 07:19 36.8 60 18 106/60 (75) 98 Room Air 01/19/17 23:45 Room Air 01/19/17 23:36 37.0 65 20 113/73 (86) 96 Room Air 01/19/17 16:11 Room Air 01/19/17 15:14 36.8 60 18 107/68 (81) 96 Room Air Lab Results: Results Past 24 Hours Test 01/19/17 11:05 01/19/17 16:18 01/19/17 20:17 01/19/17 22:49 Range/Units Bedside Glucose 134 106 147 273 70-90 mg/dl Test 01/20/17 02:49 01/20/17 06:44 01/20/17 07:24 Range/Units Bedside Glucose 193 151 70-90 mg/dl Prothrombin Time 10.7 9.0-12.0 SECONDS Prothromb Time International Ratio 1.0 0.9-1.1 Sodium Level 139 136-145 mmol/L Potassium Level 4.2 3.5-5.1 mmol/L Chloride Level 105 98-107 mmol/L Carbon Dioxide Level 28 21-32 mmol/L Anion Gap 6.0 3-11 mmol/L Blood Urea Nitrogen 24 7-18 mg/dl Creatinine 1.90 0.60-1.20 mg/dl Est Creatinine Clear Calc Drug Dose 18.4 ml/min Estimated GFR () 28.8 Estimated GFR (Non- 24.8 BUN/Creatinine Ratio 12.8 10-20 Random Glucose 135 70-99 mg/dl Calcium Level 9.1 8.5-10.1 mg/dl
--- NOTE | 2017-01-20 10:56 | Pharmacy Progress Note ---
Glycemic Control Progress Note Date of Service Jan 20, 2017. Scope Glycemic Pharmacist consulted for glycemic control to write orders per [facility] inpatient glycemic control protocol. Objective Accuchecks BSG (last 24hrs): Test 01/19/17 11:05 01/19/17 16:18 01/19/17 20:17 01/19/17 22:49 Bedside Glucose 134 mg/dl (70-90) 106 mg/dl (70-90) 147 mg/dl (70-90) 273 mg/dl (70-90) Test 01/20/17 02:49 01/20/17 06:44 01/20/17 07:24 01/20/17 10:40 Bedside Glucose 193 mg/dl (70-90) 151 mg/dl (70-90) Random Glucose 135 mg/dl (70-99) HbA1c: Test 01/19/17 07:31 Hemoglobin A1c 9.2 % (4.5-5.6) H Recent Pertinent Medications The patient is currently receiving: * Basal insulin: Levemir 17 units every 24 hours given in the morning * Correctional Insulin: Novolog Correction per scale ACHS Goal Range: Low 100 mg/dL - High 140 mg/dL Correction Factor: 40 mg/dL/unit * Prandial insulin: Per carb ratio of 1 unit per 15 grams CHO consumed * Oral Agents: On hold for admission Outpatient Anti-Diabetic Meds Oral Agents Basal Insulin Assessment & Plan ASSESSMENT: * 76 yr old T2DM female admitted with back and leg pain. * Patient was ordered her home dose of Levemir 17 units daily on admission + bolus insulin with conservative parameters. * Patient NPO this AM for spinal decompression surgery this afternoon with Dr. Manzano. * Will reduce basal insulin dose pre-op secondary to NPO status * Expect BSGs to rise post-operatively with stress and steroids used intraop & post-operatively. Will adjust post-op insulin orders accordingly with steroid dosing. * ADA & AACE recommend a goal blood sugar range 140-180 mg/dl for the majority of critically ill & non-critically ill patients. However, more stringent targets may be selected in individual cases. Will utilize more stringent goal of 100-140mg/dl based on patient age & comorbidities. Additionally, tighter glycemic control is warranted to facilitate wound/infection healing. PLAN FOR INPATIENT GLYCEMIC CONTROL: * Oral Agents * Continue to hold outpatient oral diabetes medications. * Basal insulin * Decrease dose this morning to Levemir 13 units SQ AM x 1 for NPO * Add one time dose of Levemir post-op of 10-15 units depending on degree of hyperglycemia * Resume outpatient dosing tomorrow AM of Levemir 17 units SQ AM * Bolus insulin : tighten parameters post-op for steroid induced hyperglycemia * NovoLog per scale ACHS or Q6hrs while NPO * Goal Range: Low 100 mg/dL - High 140 mg/dL * Correction Factor: 30 mg/dL/unit * Nutritional / Prandial insulin per carb ratio of 1 unit per 10 grams CHO consumed RECOMMENDATIONS FOR DISCHARGE: * Based on her A1c (9.2% on 01/19/17) it would appear that home insulin dose is not adequate, however, she was recently on prednisone for autoimmune hepatitis for unknown length of time (pt reports stopping prednisone on 12/26). Prednisone is likely the cause of increased A1c since insulin regimen was not increased with steroids. Previous A1c drawn in May of 2016 was 7.8 %. * Most likely, no changes will need to be made to outpatient regimen at discharge. * Will re-evaluate based on BSG trends and insulin dosing in house. * Please note that the plan above was derived based on current level of insulin resistance and hospital stress. These recommendations are appropriate for inpatient admission only. Plan of care upon discharge will need to be reassessed to avoid potential outpatient hypo/hyperglycemia. Thank you.
--- NOTE | 2017-01-20 11:40 | History & Physical Bridge Note ---
H&P Re-Evaluation Bridge Note: I have examined the patient, reviewed the History & Physical and in the interval since the performance of the History & Physical I have noted the following changes of clinical significance: No changes noted
[2017-01-20] MEDS ORDERED: MIDAZOLAM HCL 1 MG/ML 2ML VIAL ONE (11:42)
[2017-01-20] MEDS ORDERED: FENTANYL CITRATE INJ 50 MCG/1 ML 2 ML VIAL ONE ×3 (11:42→13:47)
[2017-01-20] MEDS ORDERED: NURSING VERBAL MED ORDER ONE (12:00)
[2017-01-20] MEDS ORDERED: CEFAZOLIN SOD 1000MG/55 ML D5W IV ONE (12:01)
[2017-01-20] MEDS ORDERED: BUPIVACAINE/EPINEPHRINE 0.5% MPF 1:200,000 10 ML VIAL ONE (12:03)
[2017-01-20] MEDS ORDERED: SODIUM CHLORIDE 0.9% PF 50 ML VIAL ONE (12:03)
[2017-01-20] MEDS ORDERED: BACITRACIN 50000 UNIT VIAL ONE (12:03)
[2017-01-20] MEDS ORDERED: CEFAZOLIN IV 1,000 MG in DEXTROSE 5% 50ML 50 ML IV SCH (12:30)
[2017-01-20] MEDS ORDERED: HYDROmorphone INJ 2 MG/ML SYR/VIAL ONE ×2 (12:47→14:08)
[2017-01-20] MEDS ORDERED: THROMBIN FOR SOLN 20000 UNIT KIT ONE (12:48)
[2017-01-20] MEDS ORDERED: ONDANSETRON INJ 2 MG/ML 2 ML VIAL IV PRN (13:00)
[2017-01-20] MEDS ORDERED: HYDROmorphone INJ 2 MG/ML SYR/VIAL IV PRN (13:00)
[2017-01-20] MEDS ORDERED: LABETALOL HCL IV 5 MG/ML 20ML IV PRN (13:00)
[2017-01-20] MEDS ORDERED: ATROPINE SULFATE 0.1 MG/ML 5ML SYR IV PRN (13:00)
[2017-01-20] MEDS ORDERED: DEXAMETHASONE SOD INJ 4 MG/ML VIAL ONE (13:20)
[2017-01-20] MEDS ORDERED: LIDOCAINE HCL 2% 2 ML VIAL (20MG/ML) ONE (13:20)
[2017-01-20] MEDS ORDERED: PROPOFOL IV EMULSION 10 MG/ML 20 ML VIAL IV ONE (13:20)
[2017-01-20] MEDS ORDERED: ROCURONIUM BROMIDE 10 MG/ML 5 ML VIAL ONE (13:20)
[2017-01-20] MEDS ORDERED: FLOSEAL HEMOSTATIC MATRIX 10ML TOP ONE (13:53)
[2017-01-20] MEDS ORDERED: SODIUM CHLORIDE 0.9% 1000ML 1,000 ML IV SCH (14:12)
[2017-01-20] MEDS ORDERED: FAMOTIDINE 20 MG TAB PO PRN (14:15)
[2017-01-20] MEDS ORDERED: METOCLOPRAMIDE HCL INJ 5 MG/ML 2 ML VIAL IV PRN (14:15)
[2017-01-20] MEDS ORDERED: ALUMINUM/MAGNESIUM SUSP 30 ML UDC PO PRN (14:15)
[2017-01-20] MEDS ORDERED: hydrOXYzine HCL 25 MG TAB PO PRN (14:15)
[2017-01-20] MEDS ORDERED: MAGNESIUM HYDROXIDE SUSP 30 ML UDC PO PRN (14:15)
[2017-01-20] MEDS ORDERED: DO NOT ADMINISTER FLU VACCINE PRN ×3 (14:15)
[2017-01-20] MEDS ORDERED: SOD PHOSPHATE/SOD BIPHOSPHATE ENEMA 132 ML BTL PR PRN (14:15)
[2017-01-20] MEDS ORDERED: DO NOT ADMINISTER PNEUMOCOCCAL VACCINE PRN ×2 (14:15)
[2017-01-20] MEDS ORDERED: ACETAMINOPHEN 500 MG TAB PO PRN (14:15)
[2017-01-20] MEDS ORDERED: PROMETHAZINE HCL INJ 12.5 MG in SODIUM CHLORIDE 0.9% 50ML 50 ML IV PRN (14:15)
[2017-01-20] MEDS ORDERED: NALOXONE HCL 0.4 MG/1 ML VIAL/CARP IV PRN ×2 (14:15)
[2017-01-20] MEDS ORDERED: EpHEDrine SULFATE 50MG/5ML SYR ONE (14:16)
[2017-01-20] MEDS ORDERED: GLYCOPYRROLATE INJ 0.2 MG/ML VIAL ONE (14:16)
[2017-01-20] MEDS ORDERED: NEOSTIGMINE METHYLSULFATE 1 MG/ML 10ML VIAL ONE (14:16)
[2017-01-20] MEDS ORDERED: ONDANSETRON INJ 2 MG/ML 2 ML VIAL ONE (14:16)
[2017-01-20] MEDS ORDERED: METOPROLOL TARTRATE 1 MG/ML VIAL ONE (14:16)
[2017-01-20] MEDS ORDERED: PHENYLEPHRINE 100MCG/ML 5ML SYR ONE (14:16)
--- NOTE | 2017-01-20 14:17 | DIAGNOSTIC IMAGING REPORT ---
INTRAOPERATIVE RADIOGRAPHS CLINICAL HISTORY: L2-L4 spinal fusion. Fluoroscopy time: 18 seconds. FINDINGS: 2 spot fluoroscopic views of the lumbar spine are presented. There is evidence of discectomy at L2-L3 with laminectomy and posterior fusion from L2 -L4. Intervertebral screws are present at all levels. The orthopedic hardware appears intact. IMPRESSION: Intraoperative images from L2 -L4 spinal fusion as above. Electronically signed by: Isaac Choudhury M.D. 01/20/2017 2:16 PM Dictated Date/Time: 01/20/2017 2:10 PM
--- NOTE | 2017-01-20 14:22 | [facility] Operative Report ---
Operative Report Operative Date Jan 20, 2017. Pre-Operative Diagnosis Lumbar stenosis L2-4, Herniated nucleus pulpus at L2-3 Post-Operative Diagnosis Same Procedure(s) Performed #1 lumbar decompression medial facetectomies foraminotomies L2 3 L3 4. #2 posterior spinal fusion L2 3 L3 4. #3 placed in posterior segmental instrumentation L2 3 L3 4. #4 interbody fusion L2-3 5 placement peek cage a by 22 mm L2-3. 6 placement locally harvested morcellized autograft posterior gutters. #7 placement infuse collagen sponge cremaster posterior lateral gutters DBM in the interbody space. Surgeon Dr. Manzano Financial Assistance Advisor Surgeon(s) Ashlee Lundy PA-C Estimated Blood Loss 100 cc Findings Severe spinal stenosis with herniated nucleus pulposus Specimens none per surgeon Description of Procedure Patient was met with preoperatively case discussed all questions were addressed. That point patient was taken back to the operative suite and after undergoing successful intubation placed in a prone position on the Rohan table on top of the Jem frame. All bony promises well-padded eyes inspected to ensure there is no external pressure placed upon them. This point lumbar spine prepped and draped no sterile fashion. Sharp dissection with the assistance of Bovie cautery was then performed onto an exposing the lamina and transverse processes of L2 L3 L4 bilaterally. From a caudal cephalad fashion complete laminectomy of L3 and L2 was performed addressing severe lateral recess stenosis as well as foraminal disease. Pedicle screws then placed in L2 L3 L4 bilaterally with assistance of fluoroscopy in the appropriate size isreal placed. Through a trans-foraminal port and left complete discectomy was performed at L2-3 including removal of herniated disc at L2-3. Endplates were then curetted subcortical bleeding bone and a 8 x 22 mm peek cage filled with DBM tapped in position. Rods were then locked and final position bilaterally and transverse processes of L2 L3 L4 burred to subcortical bleeding bone. Infuse collagen sponge mass Local harvested morcellized autograft was placed the posterior gutters. A 15 round FARAZ drain inserted. Incision was then closed with 1 Vicryl in the fascia 2 -0 Vicryl subcutaneously 4-0 Monocryl for final skin closure. Steri-Strips sterile dressing placed patient awakened taken to PACU stable condition. Please note Ashlee Valencia was present throughout the entire procedure involved in patient positioning complex portions of the procedure and final skin closure. I attest to the content of the Intraoperative Record and any orders documented therein. Any exceptions are noted below.
[2017-01-20] MEDS: HYDROmorphone HCL 0.5MG/ML 50 ML CASSETTE IV PRN ×3 (14:35→19:04)
[2017-01-20] MEDS ORDERED: HYDROmorphone INJ 0.5 MG/0.5 ML SYR ONE (15:01)
--- NOTE | 2017-01-20 15:29 | Anesthesiology Progress Note ---
Anesthesia Post Op Note Date & Time Jan 20, 2017 at 15:29 Vital Signs Pain Intensity: 0 Vital Signs Past 12 Hours Date Time Temp Pulse Resp B/P (MAP) Pulse Ox O2 Delivery O2 Flow Rate FiO2 01/20/17 14:19 36.3 82 16 112/68 100 Mask 10 01/20/17 09:43 Room Air 01/20/17 07:19 36.8 60 18 106/60 (75) 98 Room Air Notes Mental Status: alert / awake / arousable, participated in evaluation Pt Amnestic to Procedure: Yes Nausea / Vomiting: adequately controlled Pain: adequately controlled, improving with treatment Airway Patency, RR, SpO2: stable & adequate BP & HR: stable & adequate Hydration State: stable & adequate Anesthetic Complications: no major complications apparent
[2017-01-20] MEDS: SODIUM CHLORIDE 0.9% 1000ML 1,000 ML IV SCH ×2 (15:49→23:00)
[2017-01-20] MEDS: LACTATED RINGER'S 1000ML 1,000 ML IV SCH (15:55)
[2017-01-20] MEDS: CEFAZOLIN IV 1,000 MG in DEXTROSE 5% 50ML 50 ML IV SCH (20:22)
[2017-01-20] MEDS: DOCUSATE SODIUM/SENNA 50/8.6MG TAB PO SCH (20:22)
[2017-01-20] MEDS: DEXAMETHASONE INJ 6 MG in SYRINGE 0 ML IV SCH (21:29)
[2017-01-21] MEDS: INSULIN ASPART 100 UNITS/ML 3 ML PEN SC SCH ×6 (00:02→21:08)
[2017-01-21 03:54] VITALS: BP 106/69; PULSE 81; TEMP 36.6; O2SAT 100
[2017-01-21] MEDS: CEFAZOLIN IV 1,000 MG in DEXTROSE 5% 50ML 50 ML IV SCH (04:02)
[2017-01-21] MEDS: LACTATED RINGER'S 1000ML 1,000 ML IV SCH (04:03)
[2017-01-21 05:38] LABS: COMPLETE YES; HEMATOCRIT 33.4 % (37-47); IG% 0.3 %; LYMPH % 4.8 %; LYMPH ABS # 0.48 K/uL (1.2-3.4); MEAN CORPUSCULAR HEMOGLOBIN 30.9 pg (25-34); MEAN CORPUSCULAR HGB CONC 33.2 g/dl (32-36); MEAN PLATELET VOLUME 10.1 fL (7.4-10.4); MONO % 2.4 %; NEUT % 92.5 %; PLATELET COUNT 337 K/uL (130-400); RED BLOOD COUNT 3.59 M/uL (4.2-5.4); WHITE BLOOD COUNT 10.09 K/uL (4.8-10.8)
[2017-01-21] MEDS ORDERED: DC PCA SCH (06:00)
[2017-01-21] MEDS ORDERED: HYDROmorphone INJ 0.5 MG/0.5 ML SYR IV PRN (06:00)
[2017-01-21] MEDS ORDERED: HYDROmorphone INJ 1 MG/ML SYR IV PRN (06:00)
[2017-01-21 06:10] LABS: BUN/CREATININE RATIO 15.2 (10-20); CALCIUM 8.9 mg/dl (8.5-10.1); CREATININE 1.7 mg/dl (0.60-1.20); POTASSIUM 4.5 mmol/L (3.5-5.1)
[2017-01-21] MEDS: DEXAMETHASONE INJ 6 MG in SYRINGE 0 ML IV SCH ×2 (06:20→14:47)
[2017-01-21 07:30] VITALS: BP 113/66; PULSE 78; TEMP 36.6; O2SAT 99
[2017-01-21] MEDS: PANTOprazole SOD 40 MG TAB PO SCH ×2 (08:45→21:06)
[2017-01-21] MEDS: MULTIVITAMIN TAB PO SCH (08:45)
[2017-01-21] MEDS: ATORVASTATIN 40 MG TAB PO SCH ×2 (09:00→21:05)
[2017-01-21] MEDS ORDERED: INSULIN DETEMIR FLEXPEN/FLEX TOUCH 100 UNITS/ML 3ML SQ SCH ×2 (09:00→18:00)
[2017-01-21] MEDS ORDERED: NURSING DECISION MEDICATION ORDER SCH (09:30)
--- NOTE | 2017-01-21 09:33 | Anesthesiology Progress Note ---
Anesthesia Post Op Note Date & Time Jan 21, 2017 at 09:32 Vital Signs Vital Signs Past 12 Hours Date Time Temp Pulse Resp B/P (MAP) Pulse Ox O2 Delivery O2 Flow Rate FiO2 01/21/17 07:30 36.6 78 16 113/66 (82) 99 Nasal Cannula 4.0 01/21/17 03:54 36.6 81 16 106/69 (81) 100 Nasal Cannula 2.0 01/20/17 23:14 36.7 80 18 101/59 (73) 99 Nasal Cannula 2.0 Notes Mental Status: alert / awake / arousable, participated in evaluation Pt Amnestic to Procedure: Yes Nausea / Vomiting: adequately controlled Pain: adequately controlled Airway Patency, RR, SpO2: stable & adequate BP & HR: stable & adequate Hydration State: stable & adequate Anesthetic Complications: no major complications apparent
[2017-01-21 09:41] VITALS: BP 112/62; PULSE 70
--- NOTE | 2017-01-21 10:04 | Pharmacy Progress Note ---
Glycemic Control Progress Note Date of Service Jan 21, 2017. Scope Glycemic Pharmacist consulted for glycemic control to write orders per [facility] inpatient glycemic control protocol. Objective Accuchecks BSG (last 24hrs): Test 01/20/17 10:40 01/20/17 14:22 01/20/17 16:52 01/20/17 20:34 Bedside Glucose 187 mg/dl (70-90) 137 mg/dl (70-90) 195 mg/dl (70-90) 180 mg/dl (70-90) Test 01/20/17 23:51 01/21/17 04:07 01/21/17 05:09 01/21/17 08:07 Bedside Glucose 173 mg/dl (70-90) 149 mg/dl (70-90) 188 mg/dl (70-90) Random Glucose 174 mg/dl (70-99) HbA1c: Test 01/19/17 07:31 Hemoglobin A1c 9.2 % (4.5-5.6) H Outpatient Anti-Diabetic Meds Oral Agents Basal Insulin Assessment & Plan ASSESSMENT: * 76 yr old T2DM female admitted with back and leg pain, now POD#1 s/p lumbar spinal surgery * Pt with sustained moderate hyperglycemia over the past 24hrs secondary to: decreased basal insulin dose given prior to surgery for NPO, stress from surgery , and RTC dosing of high dose IV dexamethasone. * Additional dose of Levemir given last evening to help cover steroid induced hyperglycemia with long acting dxm * "Stressed/increased" outpatient dosing of Levemir given this morning * Tightened CF/CR for steroid induced hyperglycemia post-op * Last dose of DXM will be today at 1400 but hyperglycemic effects will likely last 24hrs+. Will give additional supplemental Levemir dose with dinner and then resume outpatient dosing tomorrow. Will loosen CF/CR tomorrow. PLAN FOR INPATIENT GLYCEMIC CONTROL: * Oral Agents * Continue to hold outpatient oral diabetes medications. * Basal insulin * Increase Levemir to 20 units SQ x 1 dose this AM for elevated AM fasting BSG and long acting steroid induced hyperglycemia * Add one time dose of Levemir tonight of 0-10 units depending on degree of hyperglycemia * Resume outpatient dosing tomorrow AM of Levemir 17 units SQ AM * Bolus insulin : No change, will loosen parameters 01/22 AM or sooner if BSGs start trending down. * NovoLog per scale ACHS or Q6hrs while NPO * Goal Range: Low 100 mg/dL - High 140 mg/dL * Correction Factor: 30 mg/dL/unit * Nutritional / Prandial insulin per carb ratio of 1 unit per 10 grams CHO consumed RECOMMENDATIONS FOR DISCHARGE: * Based on her A1c (9.2% on 01/19/17) it would appear that home insulin dose is not adequate, however, she was recently on prednisone for autoimmune hepatitis for unknown length of time (pt reports stopping prednisone on 12/26). Prednisone is likely the cause of increased A1c since insulin regimen was not increased with steroids. Previous A1c drawn in May of 2016 was 7.8 %. * Most likely, no changes will need to be made to outpatient regimen at discharge. * Will re-evaluate based on BSG trends and insulin dosing in house. * Please note that the plan above was derived based on current level of insulin resistance and hospital stress. These recommendations are appropriate for inpatient admission only. Plan of care upon discharge will need to be reassessed to avoid potential outpatient hypo/hyperglycemia. Thank you.
[2017-01-21] MEDS ORDERED: RXC5 PO (10:28)
--- NOTE | 2017-01-21 10:29 | Discharge Instructions ---
Discharge Instructions Date of Service Jan 21, 2017. Admission Reason for Admission: Back Pain, Leg Pain Discharge Discharge Diagnosis / Problem: stenosis Discharge Goals Goal(s): Improve function Activity Recommendations Activity Limitations: per Instructions/Follow-up section . Instructions / Follow-Up Instructions / Follow-Up ACTIVITY RECOMMENDATIONS: SELF CARE INSTRUCTIONS AFTER THORACIC/LUMBAR FUSIONS 1. You may walk to your tolerance. It is good exercise for your legs and back. Expect some back and intermittent leg aches and pains. 2. You may perform "counter-top" level activities (make a sandwich, omaira with a project, etc.). 3. No bending or lifting of more than 10 pounds or back twisting of any nature (roll like a log when turning in bed). 4. You may ride in a car for 20-30 minutes at a time. No driving until after your first visit with your doctor. 5. Frequent changes of position and restricting sitting to 30 minutes at a time will help limit the amount of back spasms and stiffness you may experience. 6. You may discontinue the use of ambulatory aids (cane, crutches, etc.) once your strength and confidence allow. 7. You may marine service station attendant the shower and let water strike your incision when you arrive home at least once daily. Do not take a tub bath, sit in a hot tub or go into a swimming pool until after your first recheck in the office. SPECIAL CARE INSTRUCTIONS: VERY IMPORTANT TO READ AND REVIEW A. Your surgical incision has been closed with a cosmetic suture under the skin that will dissolve in about 6 weeks. In 14 days, you can use a pair of clean scissors and cut the suture that is left outside of the skin at the ends of your incision. 1. The small skin tapes can be removed 7 days after surgery if they have not fallen off by that point. 2. You may keep the wound open to air as much as possible to promote healing after post-op day number 5 unless told otherwise by your doctor. 3. If you think the wound looks like it is becoming infected (redness or worsening drainage) and/or you are experiencing fever, chill or worsening back pain and muscle spasms, contact the office so that we may evaluate you as soon as possible. B. Complications are uncommon, but please contact us if you have any signs or symptoms of: 1. wound infection (fever higher than 102.5 degrees F, redness, separation of wound, drainage, or increasing pain from the incision) 2. blood clots in legs (pain, swelling, redness and warmth in legs) 3. urinary tract infection (fever higher than 102.5 degrees F, burning upon urination or increased frequency of urination) 4. nerve problems (inability to walk on your toes or heels, numbness, loss of bowel or bladder control) 5. any other symptoms that concern you C. Please call the office at if you have any concerns or questions about your operation or recovery. D. No smoking! Smoking drastically decreases the chance of a solid fusion. E. Do not take any anti-inflammatory medications (Indocin, Advil, Motrin, Aspirin, Naprosyn, etc.) as these may inhibit the chance of a solid fusion. Tylenol is okay to take for pain. MANAGING PAIN AFTER SPINAL SURGERY 1. Narcotic medication is intended for short-term use and will be provided for surgical pain. Surgical pain usually lasts for a period of 4-6 weeks. Narcotic medication includes Percocet, Vicodin, Darvocet, Tylenol #3 or Lortab. 2. Longer-term pain is more appropriately treated with non-narcotic medication such as Tylenol ES. 3. Muscle spasm is not appropriately treated with narcotics. Muscle relaxers such as Soma, Flexeril or Skelaxin can be used along with Tylenol ES. 4. Remember that we all live with some "aches and pains". This is not unusual or uncommon after an injury or as we get older. a. Back pain is expected and may include muscle spasms for 4 to 6 weeks after surgery. The pain should gradually improve. If the pain worsens for no apparent reason, please contact the office. b. Intermittent leg pain may also be experienced and should not be concerned about unless it worsens for no apparent reason. If so, please contact the office. 5. We will provide appropriate medication within the normal guidelines of their prescribed use. We will also be very cautious and aware of potential abuse and extended duration of patients' medication needs. a. Pain medications are for your comfort and to assist with sleep and rest so that the tissue can heal. They are not provided in order to return to normal activity and should not be used through the day. To do so or worsening pain at night can result from ongoing tissue damage and development of tolerance to the prescribed medicine. 6. Please allow 2-3 days to process refills. Prescriptions will not be mailed but must be picked up at the office. FOLLOW UP VISIT: Keep your scheduled follow-up appointment. Any questions, please call the office at . Current Hospital Diet Patient's current hospital diet: Diabetes Type 2 Diet Discharge Diet Recommended Diet: Regular Diet Procedures Procedures Performed: #1 lumbar decompression medial facetectomies foraminotomies L2 3 L3 4. #2 posterior spinal fusion L2 3 L3 4. #3 placed in posterior segmental instrumentation L2 3 L3 4. #4 interbody fusion L2-3 5 placement peek cage a by 22 mm L2-3. 6 placement locally harvested morcellized autograft posterior gutters. #7 placement infuse collagen sponge cremaster posterior lateral gutters DBM in the interbody space. Pending Studies Studies pending at discharge: no Laboratory Results Hemoglobin A1c Test 01/19/17 07:31 Range/Units Estimated Average Glucose 217 mg/dl Hemoglobin A1c 9.2 H 4.5-5.6 % Medical Emergencies . Who to Call and When: Medical Emergencies: If at any time you feel your situation is an emergency, please call 911 immediately. . Non-Emergent Contact Non-Emergency issues call your: Primary Care Provider . "Provider Documentation" section prepared by Milo Manzano. . VTE Core Measure Inpt VTE Proph given/why not?: Unfractionated heparin SQ, T.E.Severiano. Stockings, SCD 's
[2017-01-21 12:09] VITALS: BP 100/64; PULSE 68; TEMP 36.5; O2SAT 96
[2017-01-21] MEDS ORDERED: NURSING VERBAL MED ORDER ONE (12:15)
--- NOTE | 2017-01-21 13:15 | Progress Note ---
Progress Note Date of Service Jan 21, 2017. Progress Note Patient's pain is markedly improved. Back pain is controlled. Vital signs are stable. FARAZ drain decreasing appropriately. On exam she is in chair at bedside as good strength testing appears comfortable. Assessment status post lumbar decompression fusion. Planned this time will continue physical therapy advance her bowel regimen. She is requesting discharge home with home health. Hopefully we can lower to go home Wednesday or Wednesday.
[2017-01-21] MEDS: OXYCODONE HCL IR 5 MG TAB (IMMEDIATE RELEASE) PO PRN ×2 (15:20→23:20)
[2017-01-21 16:22] VITALS: BP 124/70; PULSE 79; TEMP 36.6; O2SAT 97
--- NOTE | 2017-01-21 18:35 | Progress Note ---
Internal Med Progress Note Date of Service: Jan 21, 2017. Provider Documentation: SUBJECTIVE: s/p back surgery pain is much better , managed to walk around the unit twice feels much better than before no complain of SOB no fever or chills OBJECTIVE: Vital Signs-as noted below Exam: General-no sign of distress Eyes-sclera non icteric ENT-NAD Neck-no JVD Lungs-CTA , no wheeze or rales Heart-regular S1/S2 Abdomen-soft, non tender Extremities-no lower ext edema ; S/P spinal decompression surgery FARAZ drain present Neuro-no focal deficit , AAO x3 Lab data as noted below. ASSESSMENT & PLAN: Chronic Low Back pain /Lumber spinal stenosis CT lumbar without contrast showed At L2-L3, severe intervertebral disc space narrowing with large circumferential annular disc bulge and superimposed left paracentral disc extrusion is present in conjunction with facet arthrosis and ligamentum flavum redundancy causing severe central canal, severe left lateral recess, moderate to severe left and moderate right foraminal narrowing. -appreciate input form pain management -appreciate input from Orthopedics Dr Manzano -s/p Lumber decompression surgery POD #1 Left LE pain associated with weakness Possible related to L2-L3 severe intervertebral disc space narrowing Doppler LE no DVT within the right or left lower extremity s/p spinal decompression surgery symptom much better after spinal decompression surgery DM Type 2 Hba1c 9 ( pt mentions of being on PO Prednisone till 12/26 for autoimmune hepatitis ) on Levemir insulin coverage Januvia D/raquel -pt is not interested to continue Januvia in future pharmacy glycemic consult requested -appreciate input CKD stage 3 JERONIMO on CkD stage 3 Cr 1.9 now will order gentle IV fluids follow H&H and PRP for post op acute blood loss anemia and dehydration creatine btw 1.5 to 1.7 follow PRP avoid nephrotoxins Dyslipidemia continue statin Constipation on miralax and senokot prn CODE status DNR DVT PROPHYLAXIS hold sub q for spinal surgery SCD and teds ordered DISPOSITION doing well in PT/OT possible discharge home with home PT in next 1-2 days Vital Signs: Date Time Temp Pulse Resp B/P (MAP) Pulse Ox O2 Delivery O2 Flow Rate FiO2 01/21/17 16:22 36.6 79 16 124/70 (88) 97 Room Air 01/21/17 12:09 36.5 68 16 100/64 (76) 96 Room Air 01/21/17 09:41 70 7/27/17 07:30 36.6 78 16 113/66 (82) 99 Nasal Cannula 4.0 01/21/17 07:30 Room Air 01/21/17 03:54 36.6 81 16 106/69 (81) 100 Nasal Cannula 2.0 01/20/17 23:14 36.7 80 18 101/59 (73) 99 Nasal Cannula 2.0 01/20/17 20:10 100 Nasal Cannula 2.0 01/20/17 18:59 36.2 63 18 96/59 (71) 100 Nasal Cannula 4.0 Lab Results: Results Past 24 Hours Test 01/20/17 20:34 01/20/17 23:51 01/21/17 04:07 01/21/17 05:09 Range/Units Bedside Glucose 180 173 149 70-90 mg/dl White Blood Count 10.09 4.8-10.8 K/uL Red Blood Count 3.59 4.2-5.4 M/uL Hemoglobin 11.1 12.0-16.0 g/dL Hematocrit 33.4 37-47 % Mean Corpuscular Volume 93.0 80-100 fL Mean Corpuscular Hemoglobin 30.9 25-34 pg Mean Corpuscular Hemoglobin Concent 33.2 32-36 g/dl Platelet Count 337 130-400 K/uL Mean Platelet Volume 10.1 7.4-10.4 fL Neutrophils (%) (Auto) 92.5 % Lymphocytes (%) (Auto) 4.8 % Monocytes (%) (Auto) 2.4 % Eosinophils (%) (Auto) 0.0 % Basophils (%) (Auto) 0.0 % Neutrophils # (Auto) 9.34 1.4-6.5 K/uL Lymphocytes # (Auto) 0.48 1.2-3.4 K/uL Monocytes # (Auto) 0.24 0.11-0.59 K/uL Eosinophils # (Auto) 0.00 0-0.5 K/uL Basophils # (Auto) 0.00 0-0.2 K/uL RDW Standard Deviation 45.0 36.4-46.3 fL RDW Coefficient of Variation 13.1 11.5-14.5 % Immature Granulocyte % (Auto) 0.3 % Immature Granulocyte # (Auto) 0.03 0.00-0.02 K/uL Sodium Level 136 136-145 mmol/L Potassium Level 4.5 3.5-5.1 mmol/L Chloride Level 104 98-107 mmol/L Carbon Dioxide Level 26 21-32 mmol/L Anion Gap 6.0 3-11 mmol/L Blood Urea Nitrogen 26 7-18 mg/dl Creatinine 1.70 0.60-1.20 mg/dl Est Creatinine Clear Calc Drug Dose 20.6 ml/min Estimated GFR () 32.9 Estimated GFR (Non- 28.4 BUN/Creatinine Ratio 15.2 10-20 Random Glucose 174 70-99 mg/dl Calcium Level 8.9 8.5-10.1 mg/dl Test 01/21/17 08:07 01/21/17 12:03 01/21/17 17:33 Range/Units Bedside Glucose 188 263 165 70-90 mg/dl
[2017-01-21] MEDS: DOCUSATE SODIUM/SENNA 50/8.6MG TAB PO SCH (21:06)
[2017-01-21 22:58] VITALS: BP 109/65; PULSE 80; TEMP 36.8; O2SAT 95
[2017-01-22] MEDS: INSULIN ASPART 100 UNITS/ML 3 ML PEN SC SCH ×6 (04:20→20:50)
[2017-01-22] MEDS: POLYETHYLENE (MIRALAX) 17 GM PACK PO SCH ×4 (05:54→23:40)
[2017-01-22 06:10] VITALS: BP 109/68; PULSE 66; TEMP 36.7; O2SAT 94
[2017-01-22 06:10] LABS: BUN/CREATININE RATIO 22.4 (10-20); CALCIUM 8.9 mg/dl (8.5-10.1); CREATININE 1.7 mg/dl (0.60-1.20); POTASSIUM 4.7 mmol/L (3.5-5.1)
[2017-01-22] MEDS: PANTOprazole SOD 40 MG TAB PO SCH ×2 (07:40→20:45)
[2017-01-22] MEDS: OXYCODONE HCL IR 5 MG TAB (IMMEDIATE RELEASE) PO PRN ×2 (07:40→20:48)
[2017-01-22] MEDS: MULTIVITAMIN TAB PO SCH (07:41)
[2017-01-22 07:44] VITALS: BP 114/68; PULSE 64; TEMP 37.1; O2SAT 91
[2017-01-22 07:57] VITALS: O2SAT 94
[2017-01-22] MEDS ORDERED: INSULIN DETEMIR FLEXPEN/FLEX TOUCH 100 UNITS/ML 3ML SQ SCH ×2 (09:00→21:00)
--- NOTE | 2017-01-22 09:44 | Pharmacy Progress Note ---
Glycemic Control Progress Note Date of Service Jan 22, 2017. Scope Glycemic Pharmacist consulted for glycemic control to write orders per [facility] inpatient glycemic control protocol. Objective Accuchecks BSG (last 24hrs): Test 01/21/17 12:03 01/21/17 17:33 01/21/17 20:28 01/22/17 00:03 Bedside Glucose 263 mg/dl (70-90) 165 mg/dl (70-90) 168 mg/dl (70-90) 134 mg/dl (70-90) Test 01/22/17 04:11 01/22/17 05:03 01/22/17 06:37 Bedside Glucose 151 mg/dl (70-90) 159 mg/dl (70-90) Random Glucose 140 mg/dl (70-99) HbA1c: Test 01/19/17 07:31 Hemoglobin A1c 9.2 % (4.5-5.6) H Outpatient Anti-Diabetic Meds -O-r-a-l- -[id number]-t-[id number]- (Stopping at discharge, does not want to take anymore) Basal Insulin Assessment & Plan ASSESSMENT: * 76 yr old T2DM female admitted with back and leg pain, now POD#2 s/p lumbar spinal surgery * Pt with sustained moderate hyperglycemia over the past 48hrs secondary to: decreased basal insulin dose given prior to surgery for NPO, stress from surgery , and RTC dosing of high dose IV dexamethasone. * Last dose of DXM given 01/21 @ 1400. Hyperglycemic effects should be diminishing today. * Stressed/increased outpatient dosing of basal insulin and gave additional PM doses for RTC steroid dosing. Will start to taper insulin regimen today to prevent hypo w/o DXM on board. * AM fasting BSG is slightly above goal range at 159mg/dl --> increase in basal insulin may be needed since A1c is elevated and pt is no longer taking Januvia. Will wait and see how BSG responds w/o DXM on board and increase tomorrow if AM fasting BSG trends upwards. Pt may need BID Levemir at discharge as the duration of action is less than 24hrs. * Post-prandial BSGs are in range but CF/CR are aggressive for steroid induced hyperglycemia. Will empirically loosen parameters now that DXM finished PLAN FOR INPATIENT GLYCEMIC CONTROL: * Basal insulin * Resume outpatient dosing of Levemir 17 units SQ AM * Pt may need BID dosing of Levemir as an outpatient since she is not resuming Januvia. Typically, Levemir is dosed BID based on its duration of action. Will add a low dose PRN HS dose of Levemir in the event of hyperglycemia. Levemir 5 units PRN BSG > 180. * Bolus insulin : loosen parameters now that DXM d/c * NovoLog per scale ACHS or Q6hrs while NPO * Goal Range: Low 110 mg/dL - High 140 mg/dL * Correction Factor: 40 mg/dL/unit * Nutritional / Prandial insulin per carb ratio of 1 unit per 13 grams CHO consumed RECOMMENDATIONS FOR DISCHARGE: * Based on her A1c (9.2% on 01/19/17) it would appear that home insulin dose is not adequate, however, she was recently on prednisone for autoimmune hepatitis for unknown length of time (pt reports stopping prednisone on 12/26). Prednisone is likely the cause of increased A1c since insulin regimen was not increased with steroids. Previous A1c drawn in May of 2016 was 7.8 %. * Since pt does not want to continue Januvia at D/C BID Levemir vs NovoLog prandial coverage may be needed in its place. * Please note that the plan above was derived based on current level of insulin resistance and hospital stress. These recommendations are appropriate for inpatient admission only. Plan of care upon discharge will need to be reassessed to avoid potential outpatient hypo/hyperglycemia. Thank you.
[2017-01-22 15:46] VITALS: BP 105/57; PULSE 56; TEMP 36.6; O2SAT 98
[2017-01-22] MEDS ORDERED: INSU3INJ3 SQ (17:22)
--- NOTE | 2017-01-22 17:23 | Progress Note ---
Progress Note Date of Service Jan 22, 2017. Progress Note Patient's pain is well-controlled. She's noted marked improvement of her leg pain. She seemed bleeding without difficulty. On exam vital signs are stable strength is intact she appears comfortable. Assessment status post lumbar depression fusion replant this time will continue physical therapy anticipate possible home tomorrow with home health.
--- NOTE | 2017-01-22 17:26 | Progress Note ---
Internal Med Progress Note Date of Service: Jan 22, 2017. Provider Documentation: SUBJECTIVE: back pain has improved ambulating well with PT/OT offers no complain OBJECTIVE: Vital Signs-as noted below Exam: General-no sign of distress Eyes-sclera non icteric ENT-NAD Neck-no JVD Lungs-CTA , no wheeze or rales Heart-regular S1/S2 Abdomen-soft, non tender Extremities-no lower ext edema ; S/P spinal decompression surgery FARAZ drain present Neuro-no focal deficit , AAO x3 Lab data as noted below. ASSESSMENT & PLAN: Chronic Low Back pain /Lumber spinal stenosis CT lumbar without contrast showed At L2-L3, severe intervertebral disc space narrowing with large circumferential annular disc bulge and superimposed left paracentral disc extrusion is present in conjunction with facet arthrosis and ligamentum flavum redundancy causing severe central canal, severe left lateral recess, moderate to severe left and moderate right foraminal narrowing. -appreciate input form pain management -appreciate input from Orthopedics Dr Manzano -s/p Lumber decompression surgery POD #2 recovering well post op doing well in PT/OT possible discharge home with home health tomorrow out pt follow up with Dr Manzano Left LE pain associated with weakness Possible related to L2-L3 severe intervertebral disc space narrowing Doppler LE no DVT within the right or left lower extremity symptom resolved after spinal decompression surgery DM Type 2 Hba1c 9 ( pt mentions of being on PO Prednisone till 12/26 for autoimmune hepatitis ) on Levemir insulin coverage Januvia D/raquel -pt is not interested to continue Januvia in future pharmacy glycemic consult requested -appreciate input pt will be discharged home with Levemir 10 u BID ( was on 17 U daily ) Januvia discontinued new scripts for Levemir sent to Pharmacy CKD stage 3 JERONIMO on CkD stage 3 cr remains stable avoid nephrotoxins Dyslipidemia continue statin Constipation on miralax and senokot prn CODE status DNR DVT PROPHYLAXIS hold sub q for spinal surgery SCD and teds ordered DISPOSITION doing well in PT/OT possible discharge home with home PT tomorrow Medicine follow up with Dr Molina Spinal surgery follow up with Dr Manzano Vital Signs: Date Time Temp Pulse Resp B/P (MAP) Pulse Ox O2 Delivery O2 Flow Rate FiO2 01/22/17 15:46 36.6 56 16 105/57 (73) 98 Room Air 01/22/17 15:30 Room Air 01/22/17 07:57 94 Room Air 01/22/17 07:44 37.1 64 22 114/68 (83) 91 Room Air 01/22/17 07:15 Room Air 01/22/17 06:10 36.7 66 16 109/68 (82) 94 Room Air 01/21/17 23:23 Room Air 01/21/17 22:58 36.8 80 16 109/65 (80) 95 Room Air 01/21/17 19:55 Room Air Lab Results: Results Past 24 Hours Test 01/21/17 17:33 01/21/17 20:28 01/22/17 00:03 01/22/17 04:11 Range/Units Bedside Glucose 165 168 134 151 70-90 mg/dl Test 01/22/17 05:03 01/22/17 06:37 01/22/17 11:55 Range/Units Sodium Level 132 136-145 mmol/L Potassium Level 4.7 3.5-5.1 mmol/L Chloride Level 97 98-107 mmol/L Carbon Dioxide Level 29 21-32 mmol/L Anion Gap 6.0 3-11 mmol/L Blood Urea Nitrogen 38 7-18 mg/dl Creatinine 1.70 0.60-1.20 mg/dl Est Creatinine Clear Calc Drug Dose 20.6 ml/min Estimated GFR () 32.9 Estimated GFR (Non- 28.4 BUN/Creatinine Ratio 22.4 10-20 Random Glucose 140 70-99 mg/dl Calcium Level 8.9 8.5-10.1 mg/dl Bedside Glucose 159 146 70-90 mg/dl
[2017-01-22] MEDS: ATORVASTATIN 40 MG TAB PO SCH (20:43)
[2017-01-22] MEDS: DOCUSATE SODIUM/SENNA 50/8.6MG TAB PO SCH (20:47)
[2017-01-22 22:50] VITALS: BP 112/68; PULSE 61; TEMP 37; O2SAT 94
[2017-01-23] MEDS: OXYCODONE HCL IR 5 MG TAB (IMMEDIATE RELEASE) PO PRN (01:19)
[2017-01-23 03:52] VITALS: BP 93/53; PULSE 71
[2017-01-23] MEDS: ONDANSETRON INJ 2 MG/ML 2 ML VIAL IV PRN ×2 (03:52→19:51)
[2017-01-23] MEDS: POLYETHYLENE (MIRALAX) 17 GM PACK PO SCH ×4 (06:00→23:38)
[2017-01-23 07:25] LABS: BUN/CREATININE RATIO 20.4 (10-20); CALCIUM 8.8 mg/dl (8.5-10.1); CREATININE 2.2 mg/dl (0.60-1.20); POTASSIUM 4.5 mmol/L (3.5-5.1)
[2017-01-23 07:37] VITALS: BP 90/56; PULSE 68; TEMP 37.2; O2SAT 96
[2017-01-23 07:49] VITALS: BP 85/54; PULSE 67; TEMP 36.7; O2SAT 96
--- NOTE | 2017-01-23 08:19 | Progress Note ---
Internal Med Progress Note Date of Service: Jan 23, 2017. Provider Documentation: SUBJECTIVE: felt very dizzy and lightheaded today found to he hypotensive SBP on 80's no reports of diarrhea , FARAZ drain has minimum out put pt mentions of feeling very weak and tired , was sitting on chair , felt dizzy that she OBJECTIVE: Vital Signs-as noted below Exam: General-no sign of distress Eyes-sclera non icteric ENT-NAD Neck-no JVD Lungs-CTA , no wheeze or rales Heart-regular S1/S2 Abdomen-soft, non tender Extremities-no lower ext edema ; S/P spinal decompression surgery FARAZ drain present Neuro-no focal deficit , AAO x3 Lab data as noted below. ASSESSMENT & PLAN: HYPOTENSION /DIZZY SPELL : pt found to be hypotensive with symptoms of lightheadedness and dizzy spell this AM SBP significantly low associated with elevated Cr suggestive of vol depletion / dehydration pt denies of any diarrhea ( in fact having constipation , taking stool softener ) no nausea or vomiting , trying to keep up with drinking enough fluids FARAZ drain only 20 ml last 8 hrs I/O shows negative balance of approx 1500 ml liter /3 days ordered for NSS 250 ml bolus then continue NSS @ 100 ml /hr ordered for Stat H&H to assess for anemia pt is not on diuretics no plan for discharge today continue to monitor orthostatic vitals ordered JERONIMO ON CKD STAGE 3 : due to above cont IVF follow lytes not on any diuretics avoids NSAID's Chronic Low Back pain /Lumber spinal stenosis CT lumbar without contrast showed At L2-L3, severe intervertebral disc space narrowing with large circumferential annular disc bulge and superimposed left paracentral disc extrusion is present in conjunction with facet arthrosis and ligamentum flavum redundancy causing severe central canal, severe left lateral recess, moderate to severe left and moderate right foraminal narrowing. -appreciate input form pain management -appreciate input from Orthopedics Dr Manzano -s/p Lumber decompression surgery POD #3 recovering well post op doing well in PT/OT discharge home with home health when medically stable out pt follow up with Dr Manzano Left LE pain associated with weakness Possible related to L2-L3 severe intervertebral disc space narrowing Doppler LE no DVT within the right or left lower extremity symptom resolved after spinal decompression surgery DM Type 2 Hba1c 9 ( pt mentions of being on PO Prednisone till 12/26 for autoimmune hepatitis ) on Levemir insulin coverage Januvia D/raquel -pt is not interested to continue Januvia in future pharmacy glycemic consult requested -appreciate input pt will be discharged home with Levemir 10 u BID ( was on 17 U daily ) Januvia discontinued new scripts for Levemir sent to Pharmacy Dyslipidemia continue statin Constipation on miralax and senokot prn CODE status DNR DVT PROPHYLAXIS hold sub q for spinal surgery SCD and teds ordered DISPOSITION hold discharge home for dehydration /JERONIMO /hypotension Medicine follow up with Dr Molina Spinal surgery follow up with Dr Manzano Vital Signs: Date Time Temp Pulse Resp B/P (MAP) Pulse Ox O2 Delivery O2 Flow Rate FiO2 01/23/17 07:49 36.7 67 18 85/54 (64) 96 Room Air 01/23/17 07:37 37.2 68 16 90/56 (67) 96 Room Air 01/23/17 03:52 71 93/53 (66) 01/22/17 22:50 37.0 61 16 112/68 (83) 94 Room Air 01/22/17 20:45 Room Air 01/22/17 15:46 36.6 56 16 105/57 (73) 98 Room Air 01/22/17 15:30 Room Air Lab Results: Results Past 24 Hours Test 01/22/17 11:55 01/22/17 17:17 01/22/17 20:24 01/23/17 03:47 Range/Units Bedside Glucose 146 110 94 158 70-90 mg/dl Test 01/23/17 06:42 01/23/17 08:04 01/23/17 08:07 Range/Units Sodium Level 130 136-145 mmol/L Potassium Level 4.5 3.5-5.1 mmol/L Chloride Level 95 98-107 mmol/L Carbon Dioxide Level 29 21-32 mmol/L Anion Gap 6.0 3-11 mmol/L Blood Urea Nitrogen 45 7-18 mg/dl Creatinine 2.20 0.60-1.20 mg/dl Est Creatinine Clear Calc Drug Dose 15.9 ml/min Estimated GFR () 24.1 Estimated GFR (Non- 20.8 BUN/Creatinine Ratio 20.4 10-20 Random Glucose 215 70-99 mg/dl Calcium Level 8.8 8.5-10.1 mg/dl Bedside Glucose 248 70-90 mg/dl
[2017-01-23] MEDS ORDERED: SODIUM CHLORIDE 0.9% 250ML 250 ML IV SCH (08:45)
[2017-01-23 08:49] LABS: HEMATOCRIT 30.9 % (37-47)
[2017-01-23] MEDS ORDERED: INSULIN DETEMIR FLEXPEN/FLEX TOUCH 100 UNITS/ML 3ML SQ ONE (09:00)
[2017-01-23] MEDS: PANTOprazole SOD 40 MG TAB PO SCH ×2 (09:05→21:51)
[2017-01-23] MEDS: MULTIVITAMIN TAB PO SCH (09:06)
[2017-01-23] MEDS: INSULIN ASPART 100 UNITS/ML 3 ML PEN SC SCH ×4 (09:09→21:00)
--- NOTE | 2017-01-23 09:40 | Pharmacy Progress Note ---
Glycemic Control Progress Note Date of Service Jan 23, 2017. Scope Glycemic Pharmacist consulted for glycemic control to write orders per [facility] inpatient glycemic control protocol. Objective Accuchecks BSG (last 24hrs): Test 01/22/17 11:55 01/22/17 17:17 01/22/17 20:24 01/23/17 03:47 Bedside Glucose 146 mg/dl (70-90) 110 mg/dl (70-90) 94 mg/dl (70-90) 158 mg/dl (70-90) Test 01/23/17 06:42 01/23/17 08:04 Random Glucose 215 mg/dl (70-99) Bedside Glucose 248 mg/dl (70-90) HbA1c: Test 01/19/17 07:31 Hemoglobin A1c 9.2 % (4.5-5.6) H Recent Pertinent Medications The patient is currently receiving: * Basal insulin: Levemir 17 units every 24 hours * Correctional Insulin: Novolog Correction per scale ACHS Goal Range: Low 100 mg/dL - High 140 mg/dL Correction Factor: 40 mg/dL/unit * Prandial insulin: Per carb ratio of 1 unit per 13 grams CHO consumed Outpatient Anti-Diabetic Meds -O-r-a-l- -[id number]- (Stopping at discharge, does not want to take anymore) Basal Insulin Assessment & Plan ASSESSMENT: * 76 yr old T2DM female admitted with back and leg pain, now POD#3 s/p lumbar spinal surgery * Patient is currently receiving an average of 30 units of insulin per day * 17 units of basal insulin * 10 units of prandial/correctional insulin * BSGs ranging 94 -159 over the past 24hrs * BSGs looked great yesterday, however this AM Fasting BSG 248 mg/dL * Patient is on 17 units of Levemir at home daily, this would be better as split dosing given the kinetics of the drug * Based on A1c of 9.2% (may be elevated due to recent prednisone use) and based on inpatient needs, and increase at discharge is warranted * Will increase and split Levemir dosing to help bring Fasting BSG down; this should also alleviate below goal range BSGs in the evening PLAN FOR INPATIENT GLYCEMIC CONTROL: * Basal insulin * Change to Levemir 10 units BID starting tonight (patient will get a total of 27 units of basal today versus 20 units which I am OK with given BSG >250 and Levemir dosing decreased yesterday.) * Bolus insulin: Continue with no change * NovoLog per scale ACHS or Q6hrs while NPO * Goal Range: Low 110 mg/dL - High 140 mg/dL * Correction Factor: 40 mg/dL/unit * Nutritional / Prandial insulin per carb ratio of 1 unit per 13 grams CHO consumed RECOMMENDATIONS FOR DISCHARGE: * Based on her A1c (9.2% on 01/19/17) it would appear that home insulin dose is not adequate, however, she was recently on prednisone for autoimmune hepatitis for unknown length of time (pt reports stopping prednisone on 12/26). Prednisone is likely the cause of increased A1c since insulin regimen was not increased with steroids. Previous A1c drawn in May of 2016 was 7.8 %. * Pt does not want to continue Januvia at D/C * to initiate BID Levemir * Please note that the plan above was derived based on current level of insulin resistance and hospital stress. These recommendations are appropriate for inpatient admission only. Plan of care upon discharge will need to be reassessed to avoid potential outpatient hypo/hyperglycemia. Thank you.
[2017-01-23 13:15] VITALS: BP_SYST 112; BP_SYST 114; BP_SYST 118; BP_DIAS 67; BP_DIAS 68; PULSE 78; TEMP 37.3; O2SAT 94
[2017-01-23] MEDS: BISACODYL 10 MG SUPP PR PRN (13:28)
[2017-01-23 15:24] VITALS: BP 120/75; PULSE 77; TEMP 37.4; O2SAT 96
[2017-01-23] MEDS ORDERED: TAP WATER ENEMA PR PRN (15:30)
[2017-01-23] MEDS ORDERED: BISACODYL 5 MG TABEC PO PRN (15:30)
[2017-01-23] MEDS ORDERED: BISACODYL 5 MG TABEC PO ONE (15:30)
[2017-01-23] MEDS ORDERED: SOAP SUDS ENEMA PR ONE (15:30)
[2017-01-23] MEDS: SODIUM CHLORIDE 0.9% 1000ML 1,000 ML IV SCH (17:51)
[2017-01-23] MEDS: ACETAMINOPHEN IV 100 ML IV PRN (19:51)
[2017-01-23] MEDS: DOCUSATE SODIUM 100 MG CAP PO SCH (21:00)
[2017-01-23] MEDS ORDERED: INSULIN DETEMIR FLEXPEN/FLEX TOUCH 100 UNITS/ML 3ML SQ SCH (21:00)
[2017-01-23] MEDS: ATORVASTATIN 40 MG TAB PO SCH (21:50)
[2017-01-23] MEDS: DOCUSATE SODIUM/SENNA 50/8.6MG TAB PO SCH (21:50)
[2017-01-23] MEDS: INSULIN DETEMIR FLEXPEN/FLEX TOUCH 100 UNITS/ML 3ML SQ SCH (21:54)
[2017-01-23 23:18] VITALS: BP 109/63; PULSE 67; TEMP 37; O2SAT 96
[2017-01-24] MEDS: SODIUM CHLORIDE 0.9% 1000ML 1,000 ML IV SCH (03:44)
[2017-01-24] MEDS: ACETAMINOPHEN IV 100 ML IV PRN (03:45)
[2017-01-24] MEDS: POLYETHYLENE (MIRALAX) 17 GM PACK PO SCH ×2 (06:00→12:37)
[2017-01-24 07:14] VITALS: BP 98/57; PULSE 70; TEMP 36.9; O2SAT 97
[2017-01-24 08:31] LABS: BUN/CREATININE RATIO 17.4 (10-20); CALCIUM 8.7 mg/dl (8.5-10.1); CREATININE 1.7 mg/dl (0.60-1.20); POTASSIUM 3.9 mmol/L (3.5-5.1)
[2017-01-24] MEDS ORDERED: INSULIN DETEMIR FLEXPEN/FLEX TOUCH 100 UNITS/ML 3ML SQ SCH ×2 (09:00)
[2017-01-24] MEDS: PANTOprazole SOD 40 MG TAB PO SCH (09:02)
[2017-01-24] MEDS: DOCUSATE SODIUM 100 MG CAP PO SCH (09:02)
[2017-01-24] MEDS: MULTIVITAMIN TAB PO SCH (09:02)
--- NOTE | 2017-01-24 09:15 | Progress Note ---
Progress Note Date of Service Jan 24, 2017. Progress Note Patient's feeling better today. Eating without difficulty. Denies nausea or vomiting. Leg pain improved. Assessment status post lumbar depression fusion replant this time considering possible home today or tomorrow pending medical evaluation.
[2017-01-24] MEDS: INSULIN ASPART 100 UNITS/ML 3 ML PEN SC SCH ×2 (09:31→12:45)
[2017-01-24] MEDS: INSULIN DETEMIR FLEXPEN/FLEX TOUCH 100 UNITS/ML 3ML SQ SCH (09:32)
--- NOTE | 2017-01-24 10:37 | Progress Note ---
Internal Med Progress Note Date of Service: Jan 24, 2017. Provider Documentation: SUBJECTIVE: does not feel dizzy or lightheaded today able to walk in hallway FARAZ drain removed , feels much better ; pain much less with movement concerned about the constipation had minimum bowel movement yesterday with Soap suds enema none today no complain of abdominal pain OBJECTIVE: Vital Signs-as noted below Exam: General-no sign of distress Eyes-sclera non icteric ENT-NAD Neck-no JVD Lungs-CTA , no wheeze or rales Heart-regular S1/S2 Abdomen-soft, non tender Extremities-no lower ext edema ; S/P spinal decompression ; incision appears to be healing well , FARAZ drain removed Neuro-no focal deficit , AAO x3 Lab data as noted below. ASSESSMENT & PLAN: HYPOTENSION /DIZZY SPELL : symptom has resolved ; BP improved with IVF pt found to be hypotensive with symptoms of lightheadedness and dizzy spell yesterday SBP was significantly low associated with elevated Cr suggestive of vol depletion /dehydration H&H has been stable will D/c IVF monitor possible discharge later today if able to have bowel movement with stool softener JERONIMO ON CKD STAGE 3 : resolved with IVF renal function improved 2.2 _> 1.7 ( baseline ) D/c IVF Chronic Low Back pain /Lumber spinal stenosis CT lumbar without contrast showed At L2-L3, severe intervertebral disc space narrowing with large circumferential annular disc bulge and superimposed left paracentral disc extrusion is present in conjunction with facet arthrosis and ligamentum flavum redundancy causing severe central canal, severe left lateral recess, moderate to severe left and moderate right foraminal narrowing. -appreciate input form pain management -appreciate input from Orthopedics Dr Manzano -s/p Lumber decompression surgery POD #4 recovering well post op doing well in PT/OT stable to be discharge home with home health -per Orthopedics stand point out pt follow up with Dr Manzano Left LE pain associated with weakness Possible related to L2-L3 severe intervertebral disc space narrowing Doppler LE no DVT within the right or left lower extremity symptom resolved after spinal decompression surgery DM Type 2 Hba1c 9 ( pt mentions of being on PO Prednisone till 12/26 for autoimmune hepatitis ) on Levemir insulin coverage Januvia D/raquel -pt is not interested to continue Januvia in future pharmacy glycemic consult requested -appreciate input pt is discharged home with Levemir 10 u BID ( was on 17 U daily ) Deion discontinued new scripts for Levemir sent to Pharmacy Dyslipidemia continue statin CHRONIC Constipation Hx of Chronic constipation worse due to pain medications given post op given miralax and senokot -no improvement given soap suds enema yesterday -with some result cont bowel regimen CODE status DNR DVT PROPHYLAXIS SCD and teds DISPOSITION possible discharge home later today Medicine follow up with Dr Molina Spinal surgery follow up with Dr Manzano Vital Signs: Date Time Temp Pulse Resp B/P (MAP) Pulse Ox O2 Delivery O2 Flow Rate FiO2 01/24/17 08:00 Room Air 01/24/17 07:14 36.9 70 19 98/57 (71) 97 Room Air 01/23/17 23:40 Room Air 01/23/17 23:18 37.0 67 14 109/63 (78) 96 Room Air 01/23/17 20:08 Room Air 01/23/17 16:00 Room Air 01/23/17 15:24 37.4 77 16 120/75 (90) 96 Room Air 01/23/17 13:15 37.3 78 118/67 (84) 94 Room Air 112/68 (83) 114/67 (83) Lab Results: Results Past 24 Hours Test 01/23/17 11:59 01/23/17 17:34 01/23/17 20:25 01/24/17 07:40 Range/Units Bedside Glucose 198 200 159 70-90 mg/dl Hemoglobin 10.2 12.0-16.0 g/dL Hematocrit 31.0 37-47 % Sodium Level 136 136-145 mmol/L Potassium Level 3.9 3.5-5.1 mmol/L Chloride Level 102 98-107 mmol/L Carbon Dioxide Level 28 21-32 mmol/L Anion Gap 6.0 3-11 mmol/L Blood Urea Nitrogen 30 7-18 mg/dl Creatinine 1.70 0.60-1.20 mg/dl Est Creatinine Clear Calc Drug Dose 20.6 ml/min Estimated GFR () 32.9 Estimated GFR (Non- 28.4 BUN/Creatinine Ratio 17.4 10-20 Random Glucose 107 70-99 mg/dl Calcium Level 8.7 8.5-10.1 mg/dl Test 01/24/17 07:58 Range/Units Bedside Glucose 110 70-90 mg/dl
[2017-01-24] MEDS ORDERED: SENNA 8.6 MG TAB PO ONE (10:45)
[2017-01-24] MEDS: BISACODYL 10 MG SUPP PR PRN (12:58)
[2017-01-24 13:04] VITALS: BP 98/57; PULSE 70; TEMP 36.9; O2SAT 97
--- NOTE | 2017-01-24 13:06 | Discharge Summary ---
Discharge Summary Date of Service Jan 24, 2017. Discharge Summary Admission Date: Jan 18, 2017 at 19:29 Discharge Date: Jan 23, 2017 Discharge Disposition: Home Principal Diagnosis: LUMBER SPINAL STENOSIS S/P LUMBER DECOMPRESSION SURGERY Procedures: LUMBER DECOMPRESSION SURGERY Consultations: ORTHOPEDICS -DR MANZANO PAIN MANAGEMENT Medication Reconciliation New Medications: Oxycodone HCl (Oxycodone HCl) 5 Mg Tab 5-10 MG PO Q4H PRN for Moderate - severe pain for 30 Days, #60 TAB Changed Medications: Insulin Detemir (Levemir Flextouch) 100 Unit/Ml Inj 10 UNITS SQ BID for 30 Days, #5 PEN 2 Refills (Changed from: 17 UNITS; DAILY; Refills: ; Removed Instructions) Continued Medications: Atorvastatin (Lipitor) 40 Mg Tab 40 MG PO DAILY Azathioprine (Imuran) 50 Mg Tab 50 MG PO DAILY Multivitamin (Multivitamin) Tab 1 TAB PO DAILY Omeprazole (Prilosec) 20 Mg Cap 20 MG PO BID Oxycodone Immediate Rel Tab (Roxicodone Ir) 5 Mg Tab 5 MG PO Q6H PRN for Pain, #15 TAB Polyethylene Glycol 3350 (Miralax) 1 Pow Pow 17 GM PO DAILY Sennosides-Docusate Sodium (Senokot S) 1 Tab Tab 1 TAB PO UD PRN for Constipation Discontinued Medications: Prednisone (Prednisone) 5 Mg Tab 10 MG PO DAILY for 5 Days, #10 TAB Sitagliptin Phosphate (Januvia) 100 Mg Tab 100 MG PO QAM Referrals At Discharge Follow up Referrals: Orthopedics Referral - Within 2 Weeks with Milo Manzano D.O. Physician Referral - 01/27/17 with Jonnathan Molina D.O. Admission Information HPI (per Admitting provider): 76 year old female with PMH of DM type 2, Dyslipidemia, CKD stage 3, urothelial carcinoma, chronic back pain, constipation, autoimmune hepatitis presents to the ER with c/o of worsening right arm pain, low back pain and left leg pain an weakness. Pt said that she does have chronic back pain that is getting worst. she said that it seems the pain now radiating to the left leg. she said that her left leg pain and low back pain seem to get worst when she stands due to the pressure that applied to her back and leg. She also has some numbness in her left tight area associated with some weakness in the left leg. Pt also said that she having pain in her right elbow that radiated to her hand and associated with numbness in her fingers. she said that she has to hold her arm, the pain comes and goes and when it happens, her elbow feels cold. she said that the pain has been going on for the last few months. she said that in the past she used to have pain in her right should that is resolved now after she had some chiropractor therapy done. pt said that all her pain are about 10/10 in severity and worsening with movement. she said that she saw pain management , but they wanted to get imaging with contrast but because she is allergic with contrast (had a code blue after receiving contrast) they did do the imaging. Pt said that she was prescribed pain med with no relief. She states that she also had a cough and chest pain, and waxing and waning rib pain about two weeks ago. Denies any headache, change in vision, abdominal pain, nausea, vomiting, diarrhea, palpitation, dizziness, bladder and bowel loss. Physical Exam (per Admitting): General Appearance: WD/WN, no apparent distress Head: normocephalic, atraumatic Eyes: normal inspection, PERRL, EOMI ENT: normal ENT inspection Neck: supple, no JVD Respiratory/Chest: normal breath sounds, no respiratory distress, no accessory muscle use Cardiovascular: regular rate, rhythm, no JVD Abdomen/GI: normal bowel sounds, soft Back: + muscle spasm, + decreased range of motion, + pertinent finding (Low back pain and stiffness) Extremities/Musculoskelatal: no calf tenderness Neurologic/Psych: alert, oriented x 3 Skin: warm/dry, no rash Hospital Course HYPOTENSION /DIZZY SPELL : symptom has resolved ; BP improved with IVF pt found to be hypotensive with symptoms of lightheadedness and dizzy spell yesterday SBP was significantly low associated with elevated Cr suggestive of vol depletion /dehydration H&H has been stable will D/c IVF monitor possible discharge later today if able to have bowel movement with stool softener JERONIMO ON CKD STAGE 3 : resolved with IVF renal function improved 2.2 _> 1.7 ( baseline ) D/c IVF Chronic Low Back pain /Lumber spinal stenosis CT lumbar without contrast showed At L2-L3, severe intervertebral disc space narrowing with large circumferential annular disc bulge and superimposed left paracentral disc extrusion is present in conjunction with facet arthrosis and ligamentum flavum redundancy causing severe central canal, severe left lateral recess, moderate to severe left and moderate right foraminal narrowing. -appreciate input form pain management -appreciate input from Orthopedics Dr Manzano -s/p Lumber decompression surgery POD #4 recovering well post op doing well in PT/OT stable to be discharge home with home health -per Orthopedics stand point out pt follow up with Dr Manzano Left LE pain associated with weakness Possible related to L2-L3 severe intervertebral disc space narrowing Doppler LE no DVT within the right or left lower extremity symptom resolved after spinal decompression surgery DM Type 2 Hba1c 9 ( pt mentions of being on PO Prednisone till 12/26 for autoimmune hepatitis ) on Levemir insulin coverage Januvia D/raquel -pt is not interested to continue Januvia in future pharmacy glycemic consult requested -appreciate input pt is discharged home with Levemir 10 u BID ( was on 17 U daily ) Januvia discontinued new scripts for Levemir sent to Pharmacy Dyslipidemia continue statin CHRONIC Constipation Hx of Chronic constipation worse due to pain medications given post op given miralax and senokot -no improvement given soap suds enema yesterday -with some result cont bowel regimen CODE status DNR DVT PROPHYLAXIS SCD and teds DISPOSITION possible discharge home later today Medicine follow up with Dr Molina Spinal surgery follow up with Dr Manzano Total time spent on discharge = 35 mins This includes examination of the patient, discharge planning, medication reconciliation, and communication with other providers. Discharge Instructions Discharge Instructions Date of Service Jan 21, 2017. Admission Reason for Admission: Back Pain, Leg Pain Discharge Discharge Diagnosis / Problem: stenosis Discharge Goals Goal(s): Improve function Activity Recommendations Activity Limitations: per Instructions/Follow-up section . Instructions / Follow-Up Instructions / Follow-Up ACTIVITY RECOMMENDATIONS: SELF CARE INSTRUCTIONS AFTER THORACIC/LUMBAR FUSIONS 1. You may walk to your tolerance. It is good exercise for your legs and back. Expect some back and intermittent leg aches and pains. 2. You may perform "counter-top" level activities (make a sandwich, omaira with a project, etc.). 3. No bending or lifting of more than 10 pounds or back twisting of any nature (roll like a log when turning in bed). 4. You may ride in a car for 20-30 minutes at a time. No driving until after your first visit with your doctor. 5. Frequent changes of position and restricting sitting to 30 minutes at a time will help limit the amount of back spasms and stiffness you may experience. 6. You may discontinue the use of ambulatory aids (cane, crutches, etc.) once your strength and confidence allow. 7. You may fire marshal refinery the shower and let water strike your incision when you arrive home at least once daily. Do not take a tub bath, sit in a hot tub or go into a swimming pool until after your first recheck in the office. SPECIAL CARE INSTRUCTIONS: VERY IMPORTANT TO READ AND REVIEW A. Your surgical incision has been closed with a cosmetic suture under the skin that will dissolve in about 6 weeks. In 14 days, you can use a pair of clean scissors and cut the suture that is left outside of the skin at the ends of your incision. 1. The small skin tapes can be removed 7 days after surgery if they have not fallen off by that point. 2. You may keep the wound open to air as much as possible to promote healing after post-op day number 5 unless told otherwise by your doctor. 3. If you think the wound looks like it is becoming infected (redness or worsening drainage) and/or you are experiencing fever, chill or worsening back pain and muscle spasms, contact the office so that we may evaluate you as soon as possible. B. Complications are uncommon, but please contact us if you have any signs or symptoms of: 1. wound infection (fever higher than 102.5 degrees F, redness, separation of wound, drainage, or increasing pain from the incision) 2. blood clots in legs (pain, swelling, redness and warmth in legs) 3. urinary tract infection (fever higher than 102.5 degrees F, burning upon urination or increased frequency of urination) 4. nerve problems (inability to walk on your toes or heels, numbness, loss of bowel or bladder control) 5. any other symptoms that concern you C. Please call the office at if you have any concerns or questions about your operation or recovery. D. No smoking! Smoking drastically decreases the chance of a solid fusion. E. Do not take any anti-inflammatory medications (Indocin, Advil, Motrin, Aspirin, Naprosyn, etc.) as these may inhibit the chance of a solid fusion. Tylenol is okay to take for pain. MANAGING PAIN AFTER SPINAL SURGERY 1. Narcotic medication is intended for short-term use and will be provided for surgical pain. Surgical pain usually lasts for a period of 4-6 weeks. Narcotic medication includes Percocet, Vicodin, Darvocet, Tylenol #3 or Lortab. 2. Longer-term pain is more appropriately treated with non-narcotic medication such as Tylenol ES. 3. Muscle spasm is not appropriately treated with narcotics. Muscle relaxers such as Soma, Flexeril or Skelaxin can be used along with Tylenol ES. 4. Remember that we all live with some "aches and pains". This is not unusual or uncommon after an injury or as we get older. a. Back pain is expected and may include muscle spasms for 4 to 6 weeks after surgery. The pain should gradually improve. If the pain worsens for no apparent reason, please contact the office. b. Intermittent leg pain may also be experienced and should not be concerned about unless it worsens for no apparent reason. If so, please contact the office. 5. We will provide appropriate medication within the normal guidelines of their prescribed use. We will also be very cautious and aware of potential abuse and extended duration of patients' medication needs. a. Pain medications are for your comfort and to assist with sleep and rest so that the tissue can heal. They are not provided in order to return to normal activity and should not be used through the day. To do so or worsening pain at night can result from ongoing tissue damage and development of tolerance to the prescribed medicine. 6. Please allow 2-3 days to process refills. Prescriptions will not be mailed but must be picked up at the office. FOLLOW UP VISIT: Keep your scheduled follow-up appointment. Any questions, please call the office at . Current Hospital Diet Patient's current hospital diet: Diabetes Type 2 Diet Discharge Diet Recommended Diet: Regular Diet Procedures Procedures Performed: #1 lumbar decompression medial facetectomies foraminotomies L2 3 L3 4. #2 posterior spinal fusion L2 3 L3 4. #3 placed in posterior segmental instrumentation L2 3 L3 4. #4 interbody fusion L2-3 5 placement peek cage a by 22 mm L2-3. 6 placement locally harvested morcellized autograft posterior gutters. #7 placement infuse collagen sponge cremaster posterior lateral gutters DBM in the interbody space. Pending Studies Studies pending at discharge: no Laboratory Results Hemoglobin A1c Test 01/19/17 07:31 Range/Units Estimated Average Glucose 217 mg/dl Hemoglobin A1c 9.2 H 4.5-5.6 % Medical Emergencies . Who to Call and When: Medical Emergencies: If at any time you feel your situation is an emergency, please call 911 immediately. . Non-Emergent Contact Non-Emergency issues call your: Primary Care Provider . "Provider Documentation" section prepared by Milo Manzano. . VTE Core Measure Inpt VTE Proph given/why not?: Unfractionated heparin NEYMAR, Allen Lozano, SCD 's Addendum: Sapna Shelton M.D. on 01/24/17 @ 10:43 Discharge Inst - Addendum Addendum Notes: HOSPITAL FOLLOW UP WITH DR JONNATHAN PARKER CASSI ON JANUARY 27Wednesday AT 1: 05 PM LAB WORK : BASIC METABOLIC PANEL ON 01/27/17 NEW MEDICATIONS CHANGES : DO NOT TAKE JANUVIA INSULIN LEVEMIR 10 UNITS TWICE DAILY -SCRIPTS SENT TO YOUR PHARMACY Addendum Provider: Addendum Notes were documented by provider Sapna Shelton.
== END 2017-01-24 15:27 | disposition home health service (06) | DRG 460 ==
LOC: C.EDB 11:46 → C.MS2W 19:29 → ENRESERV 19:49 → C.3E 01-20 15:53
PROVIDERS: ADMIT Internal Medicine; ATTEND Hospitalist
PROC: 0SG00AJ Fusion of Lumbar Vertebral Joint with Interbody Fusion Device, Posterior Approach, Anterior Column, Open Approach (ICD-10-PCS; principal; 2017-01-20 11:45)
PROC: 0ST20ZZ Resection of Lumbar Vertebral Disc, Open Approach (ICD-10-PCS; principal; 2017-01-20 11:45)
PROC: 0SG1071 Fusion of 2 or more Lumbar Vertebral Joints with Autologous Tissue Substitute, Posterior Approach, Posterior Column, Open Approach (ICD-10-PCS; principal; 2017-01-20 11:45)
PROC: 3E0U0GB Introduction of Recombinant Bone Morphogenetic Protein into Joints, Open Approach (ICD-10-PCS; principal; 2017-01-20 11:45)
DX: M48.06 Spinal stenosis, lumbar region (principal); N17.9 Acute kidney failure, unspecified; N18.3 Chronic kidney disease, stage 3 (moderate); K75.4 Autoimmune hepatitis; M54.16 Radiculopathy, lumbar region; M51.26 Other intervertebral disc displacement, lumbar region; Z66 Do not resuscitate; G89.29 Other chronic pain; E86.0 Dehydration; I95.9 Hypotension, unspecified; R07.9 Chest pain, unspecified; E78.5 Hyperlipidemia, unspecified; K59.00 Constipation, unspecified; Z79.899 Other long term (current) drug therapy; Z79.52 Long term (current) use of systemic steroids; Z79.891 Long term (current) use of opiate analgesic; Z79.84 Long term (current) use of oral hypoglycemic drugs; Z90.5 Acquired absence of kidney

== ENCOUNTER → 2017-02-13 | Outpatient (CLI) | payer OTHER ==
[~2017-02-13] MED LIST changes: -ACET-749 PO; -AMOX1TAB42 PO; +AZAT50TA17 PO; -CLC100 PO; -MRLP17X PO; -NATE1TAB PO; -NRN400 PO; +OMEP20CA9 PO; +OXYC1TAB3 PO; +POLY335019 PO; -PRED10TA PO; -PRLSR20 PO; +RXC5 PO; +SENN-65 PO; -SITA100T3 PO
--- NOTE | 2017-02-13 12:42 | DIAGNOSTIC IMAGING REPORT ---
LUMBAR SPINE RADIOGRAPHS CLINICAL HISTORY: Low back pain radiating into left leg. COMPARISON: Lumbar spine CT January 18, 2017, lumbar spine MRI January 19, 2017 and lumbar spine fluoroscopic images January 20, 2017. FINDINGS: Note is made of postsurgical findings consistent with an L2-L3 discectomy with interbody spacer placement. There is a posterior decompression with bilateral pedicle screws at the L2, L3 and L4 levels. The hardware is intact. There is possible mild lucency adjacent to the pedicle screws at the L2 and left L4 levels. This is probably artifactual. Marked disc space narrowing at L5-S1 is noted. There is moderate to marked disc space narrowing at L3-L4. No acute fracture is identified. IMPRESSION: 1. Status post L2-L3 discectomy and L2-L4 posterior decompression and bilateral pedicle screw fusion. Hardware intact. Equivocal lucency adjacent to the L2 and left L4 pedicle screws. This is probably artifactual although loosening could appear similar. 2. No acute lumbar spine fracture. Electronically signed by: Vishal Alejandro M.D. 02/13/2017 12:40 PM Dictated Date/Time: 02/13/2017 12:34 PM
== END | disposition home or self-care (01) ==
LOC: C.RAD 11:50
PROVIDERS: ATTEND Internal Medicine
DX: M54.42 Lumbago with sciatica, left side (principal)

== ENCOUNTER → 2017-06-07 | Outpatient (CLI) | payer OTHER ==
--- NOTE | 2017-06-07 11:35 | DIAGNOSTIC IMAGING REPORT ---
ABD/PELVIS NO IV OR ORAL CONT CLINICAL HISTORY: 76 years-old Female presenting with C66.2 Urothelial carcinoma of left distal [facility]LA N [facility]. TECHNIQUE: Multidetector CT of the abdomen and pelvis was performed without the use of intravenous contrast. IV contrast: None. A dose lowering technique was used consistent with the principles of ALARA (as low as reasonably achievable). COMPARISON: 11/30/2016. CT DOSE (mGy.cm): The estimated cumulative dose is 606.15 mGycm. FINDINGS: Waiter/Waitress Bar topogram: Posterior lumbar fusion hardware. Lung bases: Lung bases clear. Normal heart size. No pericardial or pleural effusion. Liver: Normal morphology. Normal density. Biliary: Grossly similar appearance of intrahepatic and extrahepatic biliary ductal dilatation allowing for noncontrast technique. Normal gallbladder. Pancreas: Normal noncontrast appearance. Spleen: Normal noncontrast appearance. Adrenal glands: Normal noncontrast appearance. Kidneys and ureters: Postsurgical changes of left nephrectomy. Allowing for noncontrast technique, no abnormal soft tissue density in the operative bed. Normal noncontrast appearance of the right kidney. No hydronephrosis. Mild right urothelial thickening. The right ureter is nondilated and incompletely evaluated without contrast. The left ureter is surgically absent Bladder: Circumferential bladder wall thickening. No perivesicular inflammatory change. Pelvic organs: Uterus surgically absent. In the region of the left adnexa, the presumed left ovary is unchanged in appearance from prior. Multiple surgical clips. In the adjacent left external iliac region may represent prior lymphadenectomy. This is also at the site of prior lymphadenopathy. Bowel: Circumferential wall thickening of the rectum without infiltration of the mesorectal fat. Limited diverticulosis of the sigmoid colon. Moderate stool burden noted throughout the normal caliber colon. No bowel obstruction. Peritoneal cavity: No free fluid or intraperitoneal gas. Trace extraperitoneal fat infiltration in the pelvis. Lymph nodes: The left external iliac region demonstrates significant interval enlargement of lymphadenopathy. The largest lymph node in the obturator region now measures 3.5 x 1.7 cm, previously 1.2 x 0.8 cm. These lymph nodes form a conglomerate and are somewhat difficult to delineate from one another in the adjacent musculature. Several subcentimeter prominent left common iliac lymph nodes and retroperitoneal lymph nodes evident. Allowing for the absence of intravenous contrast and may also be dominant portacaval or sella iliac axis lymph nodes (series 3 image 96). Vasculature: Atherosclerosis of the normal caliber abdominal aorta. Abdominal wall: Lipoma noted in the left flank. Musculoskeletal: Degenerative changes of the spine. Postsurgical changes of posterior lumbar fusion with laminectomies. Mild osteopenia. IMPRESSION: 1. Findings suspicious for metastatic disease within left external iliac lymphadenopathy. Allowing for noncontrast technique, additional sites of lymphadenopathy in the upper abdomen may also be present. No commencing evidence of recurrent disease locally within the operative bed. Noncontrast MR of the abdomen and pelvis may be helpful in further delineating extent of disease. 2. Post surgical changes of left nephrectomy. No gross evidence of right urinary collecting system abnormality. 3. Circumferential bladder wall thickening could represent post radiation change. Correlate with urinalysis to exclude cystitis. 4. 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 This may also be secondary to prior radiation. Electronically signed by: Nixon Delvalle M.D. 06/07/2017 11:34 AM Dictated Date/Time: 06/07/2017 11:21 AM
== END | disposition home or self-care (01) ==
LOC: C.CTS 11:07
PROVIDERS: ATTEND Urology
DX: C66.2 Malignant neoplasm of left ureter (principal)

== ENCOUNTER → 2017-06-30 | Outpatient (CLI) | payer OTHER ==
[~2017-06-30] MED LIST changes: +AZAT50TA30 PO; +BENZ100C7 PO; +FLNIN/ NAE; +INSU3INJ3 SC; +LPT40 PO; +LVMI; +LVMI SQ; +ONDA-63 PO; +OXYC-737 PO; -OXYC1TAB3 PO; +PANT40TA2 PO; +PROC10TA5 PO
--- NOTE | 2017-06-30 11:36 | DIAGNOSTIC IMAGING REPORT ---
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 COMPARISON STUDY: Abdominal CT dated 06/07/2017 and 11/30/2016. TECHNIQUE: One hour following the IV administration of 10.56 mCi of F-18 FDG, PET/CT examination was performed from the orbital meatal line through the bony pelvis. Noncontrast CT is performed for the purposes of anatomic correlation and attenuation correction. Note that this does not reflect a diagnostic CT examination. Images were reviewed on a separate [employer] independent workstation. Fused images were obtained. Standard uptake values reported are maximum values within the region of interest expressed in gm/mL. FINDINGS: PET FINDINGS: Head and neck: There is expected physiologic activity within the visualized brain parenchyma at the skull base and the salivary glands. Thorax: Evaluation of the thorax demonstrates expected physiologic myocardial activity. Abdomen and pelvis: There is expected activity within the liver, spleen, right kidney, right renal collecting system, and bladder. Low-level bowel activity is likely within physical limits. No concerning FDG avid lesion is identified. There is an 8 mm FDG avid soft tissue structure on the left iliac chain sutures #154. This demonstrates a maximum SUV of 3.8. There is FDG avid left pelvic sidewall lymph nodes. The largest node is seen on image #178 measuring 3.4 x 2.2 cm and demonstrates a maximum SUV of 6.4. There is soft tissue the left hemipelvis on image #176 which surrounds several surgical clips. This measures 2.9 x 1.4 cm and was not demonstrably FDG avid. No abnormal soft tissue lesion or FDG activity is identified in the left renal fossa. Unenhanced CT images: There are bilateral ocular lens implants. The visualized paranasal sinuses and the right mastoid air cells appear clear. The salivary and thyroid glands are normal in appearance. No cervical adenopathy is identified. There is mild atherosclerotic calcification of the thoracic aorta which is normal in caliber. The heart is normal in size and without pericardial effusion. There is no mediastinal, hilar, or axillary lymphadenopathy. No airspace consolidation or pleural effusion is identified. Dependent atelectasis is observed. The unenhanced liver, gallbladder, spleen, adrenal glands, and pancreas are grossly unremarkable. The left kidney is surgically absent. The right kidney is normal in appearance. There is mild to moderate atherosclerotic calcification of the abdominal aorta which is normal in caliber. No bowel obstruction is identified. Mild colonic fecal retention is observed. There is mild colonic diverticulosis without CT evidence of acute diverticulitis. No intraperitoneal free air or abdominal ascites is seen. There is no mesenteric, upper abdominal, retroperitoneal, right pelvic sidewall, or inguinal lymphadenopathy. The bladder is decompressed and grossly unremarkable. The uterus is surgically absent. Surgical clips are noted in the left pelvis. The skeletal structures are osteopenic. No lytic or blastic lesion is seen. Degenerative changes seen throughout the spine. Postoperative change/perfusion is seen in the lumbar region. A lipoma is noted in the left posterior chest wall on image #114. IMPRESSION: 1. There is FDG avid left pelvic sidewall lymphadenopathy. This is similar to the 06/07/2017 examination but has significantly increased in size from 11/30/2016. This is highly concerning for metastatic disease given the history of left ureteral neoplasm. 2. There is soft tissue in the left pelvis surrounding surgical clips. This was not demonstrably FDG avid and likely represents postoperative change. 3. There is a small focus of FDG avid soft tissue on the course of the left iliac chain. This could represent a small metastatic node or possibly a vascular structure. Attention at follow-up is recommended. 4. No additional findings are concerning for metastatic disease. 6. There are changes from left renal and ureteral resection. 7. The lungs are clear. Electronically signed by: Isaac Choudhury M.D. 06/30/2017 11:34 AM Dictated Date/Time: 06/30/2017 11:06 AM
== END | disposition home or self-care (01) ==
LOC: C.PET 06:53
PROVIDERS: ATTEND Internal Medicine Hematology
DX: C66.2 Malignant neoplasm of left ureter (principal); R59.0 Localized enlarged lymph nodes

== ENCOUNTER → 2018-01-20 | Outpatient (CLI) | payer OTHER ==
[~2018-01-20] MED LIST changes: -ATOR-24 PO; -AZAT50TA17 PO; -INSU3INJ3 SQ; -LVMI SQ; -OMEP20CA9 PO; -OXYC-737 PO; -RXC5 PO
[2018-01-20 13:48] VITALS: BP 105/69; PULSE 74; TEMP 36.8
--- NOTE | 2018-01-20 15:59 | Radiation Oncology Follow-Up ---
Radiation Oncology Follow-Up Date of Visit Jan 20, 2018. Reason For Visit One-month follow-up Radiation Completion Date 12/15/17 Diagnosis (1) Primary ureteral papillary carcinoma Status: Acute Onset Date: 05/27/2016 Permanent Comment: Onset of flank pain and dark urine Evaluation and finding of left hydronephrosis High-grade urothelial carcinoma found on cytology May 27, 2016 Status post left hand-assisted nephroureterectomy with lymph node dissection June 24, 2016 Stage pT2 PN0 Abnormal PET/CT 06/30/2017 revealing recurrence. Chemotherapy initiated with single agent gemcitabine 2 weeks on and one-week off 06/2017 Recheck PET/CT October 11, 2017 good response with residual left pelvic sidewall adenopathy Last Edited By: Nereida Hawley on November 04, 2017 10:04 History of Present Illness Ms. Gonzalez presented with dark urine and flank pain on the left side in late 2015. On May 18, [address] scan of the abdomen and pelvis. This showed a severe left hydronephrosis to the level of the mid left ureter. There was abnormal soft tissue within the left ureter measuring 1.6 cm resulting in the obstruction. The distal left ureter was decompressed consistent with a urothelial malignancy. On May 27, 2016 patient undergoes a retrograde evaluation of the ureter with a left ureter pathology revealed malignant cells consistent with a high-grade urothelial carcinoma. Case: [id number]. Biopsy Of the left ureteral mass showed a high-grade papillary urothelial carcinoma with no lamina propria invasion identified. There was no muscularis noted in the biopsy tissue. Case: [id number]. On June 24, 2016 Dr. Jarvis performed a left nephro ureterectomy and lymph node sampling.This revealed a tumor measuring 3.5 x 2.0 x 2.0 cm and was an invasive urothelial carcinoma Papillary high-grade. The tumor involved the muscularis propria and was a PT 2. The ureteral and vascular margins were negative. 2 pelvic lymph nodes were sampled and were negative. The final pathologic stage was therefore pT2 pN0. Case: [id number]. On May 08, [address] scan of the abdomen and pelvis without IV contrast. The left external iliac region demonstrates significant interval enlargement of lymphadenopathy. The largest lymph node in the obturator region now measures 3.5 x 1.7 cm, previously 1.2 x 0.8 cm. These lymph nodes form a conglomerate and are somewhat difficult to delineate from one another in theadjacent musculature. Several subcentimeter prominent left common iliac lymph nodes and retroperitoneal lymph nodes evident. Allowing for the absence of intravenous contrast and may also be dominant portacaval or sella iliac axislymph nodes (series 3 image 96). These findings were suspicious for metastatic disease within the left external iliac lymphadenopathy. Because of the noncontrast technique additional studies were suggested. On April 30, 2018 patient undergoes a PET CT scan. IMPRESSION: 1. There is FDG avid left pelvic sidewall lymphadenopathy. This is similar to the 06/07/2017 examination but has significantly increased in size from 2016. This is highly concerning for metastatic disease given the history of left ureteral neoplasm. 2. There is soft tissue in the left pelvis surrounding surgical clips. This was not demonstrably FDG avid and likely represents postoperative change. 3. There is a small focus of FDG avid soft tissue on the course of the left Iliac chain. This could represent a small metastatic node or possibly a vascular structure. Attention at follow-up is recommended. 4. No additional findings are concerning for metastatic disease. Patient was being followed by Dr. Nima Garcia. Given the finding of recurrent disease in the left pelvis he recommended initiation of systemic chemotherapy. This consisted of gemcitabine 1000 mg/m which began on July 20, 2017. This is delivered weekly 2 followed by 1 week off. 08/10/2017. Patient undergoes MRI of the abdomen without contrast. This showed stable appearance of dilated intrahepatic and extrahepatic biliary ducts stable from prior MRI of July 07, 2016. There was postsurgical changes consistent with left nephro ureterectomy. There was left pelvic sidewall lymphadenopathy as noted on recent PET CT scan consistent with metastatic disease. 10/11/2017. Patient undergoes restaging PET CT scan to evaluate tumor response. IMPRESSION: 1. Improved exam with a decrease in volume and metabolic activity of the left iliac chain adenopathy as well as the left lateral pelvic sidewall adenopathy. 2. Moderate residual adenopathy estimated 50% improvement involving from the prior study although SUV characteristics of the residual tissue remains at 6. 3. Operative findings consistent with a left nephrectomy and left ureteral resection are again noted. 4. Study is otherwise unremarkable with no evidence for progressive disease. 10/19/2017. Patient returns to discuss findings with Dr. Garcia. He notes partial response of greater than 50% with single agent gemcitabine. He therefore discussed the possibility of adding additional local radiation to the left pelvic lymph nodes and asked us to see this patient in referral. 11/04/2017. Patient seen in radiation oncology for referral to discuss the possibility of pelvic radiation. 12/15/2017. Status post completion of radiation therapy to the pelvis. She received 5000 cGy Interim History She has had no issues with pelvic or abdominal discomfort since the completion of treatment. There is been no change of urination. She has had no change in bowel habits. She denies nausea or vomiting. She had been scheduled for a PET CT this past Wednesday but this was canceled. She did not know that she was to be n.p.o. This is now rescheduled for January 26. We discussed that she had previously had a CAT scan December 10, 2017. She has been to the emergency room for rectal bleeding. This showed marked improvement in the previously identified left pelvic sidewall lymphadenopathy. She denies any recurrence of the rectal bleeding. Allergies Coded Allergies: Iodinated Diagnostic Agents (Verified Allergy, Severe, Anaphylaxis, ) Reported by PT Adhesives (Verified Allergy, Intermediate, RASH, 01/24/17) Glyburide (Verified Allergy, Intermediate, Hives and Rash, 01/24/17) Reported by PT Latex (Verified Allergy, Unknown, Rash from gloves, 01/18/17) Reported by PT Uncoded Allergies: Color dye (Allergy, Severe, Anaphylaxis, 11/04/17) Home Medications Scheduled Atorvastatin (Lipitor), 40 MG PO DAILY Azathioprine (Azathioprine), 50 MG PO BID Insulin Detemir (Levemir Flextouch), 22 UNITS SC DAILY Multivitamin (Multivitamin), 1 TAB PO DAILY Scheduled PRN Benzonatate (Benzonatate), 100 MG PO TID PRN for Cough Polyethylene Glycol 3350 (Miralax), 17 GM PO DAILY PRN for Constipation Prochlorperazine Maleate (Prochlorperazine Maleate), 10 MG PO Q6H PRN for Nausea Sennosides-Docusate Sodium (Senokot S), 1 TAB PO UD PRN for Constipation Miscellaneous Medications Insulin Detemir (Levemir), 22 Review of Systems Gastrointestinal: Symptoms: WNL Oral: Symptoms: No Problems Respiratory: Symptoms: WNL Urinary: Symptoms: WNL Skin: Symptoms: No Problems Physical Exam Vital Signs Date Time Temp Pulse Resp B/P (MAP) Pulse Ox O2 Delivery O2 Flow Rate FiO2 01/20/18 13:48 36.8 74 18 105/69 Fatigue: None General Appearance: no apparent distress Eyes: normal inspection, EOMI ENT: normal ENT inspection, hearing grossly normal Neck: no adenopathy, thyroid normal Respiratory/Chest: lungs clear, no respiratory distress, no accessory muscle use Cardiovascular: regular rate, rhythm, no gallop, no murmur Abdomen: normal bowel sounds, non tender, soft, no organomegaly, no pulsatile mass Extremities: no pedal edema Neurologic/Psychiatric: no motor/sensory deficits, alert, normal mood/affect Skin: warm/dry Pain Management Patient Reports Pain: No Pain Location: None Patient Preferred Pain Scale: 0 - 10 Initial Pain Intensity: 0.0 Pain Management Plan She denies pain therefore requires no pain management. Laboratory Laboratory Results: not applicable Pathology Pathology Results: were reviewed, and pertinent findings noted in HPI Imaging Imaging Studies: were reviewed, and pertinent findings noted below Imaging Comments Patient: DARVIN GONZALEZ Address1: [address] [facility] Rec: [id number] Address2: Acct ID: [id number] [facility] Zip: [place] [address] Date: 1940 Sex: F Room/Bed: Ref Phy: Jhonny Molina, D.OCally SC: SRI Att Phy: Report #: [id number] Suzette Phy: Jhonny Molina, D.OCally Test: APWO Admit Phy: Fermentation Engineer: ABBEY Interpreting Phy: Jorge L Sánchez M.D. Diagnosis: BLOOD IN STOOL Ordering Phy: Baljinder Lyle DO Service Date: 12/10/17 Admit Date: 12/10/17 MNE: [id number] CONF: DICTATED BY: Jorge L Sánchez M.D.]] CC: Baljinder Lyle, Jhonny Olmstead, D.O. Endcc: [~ rep ct add3]] CT SCAN OF THE ABDOMEN AND PELVIS WITHOUT CONTRAST CLINICAL HISTORY: Abdominal pain and bloody stools COMPARISON STUDY: 06/07/2017 TECHNIQUE: CT scan of the abdomen and pelvis was performed from the lung bases to the proximal femurs. Images are reviewed in the axial, sagittal, and coronal planes. IV contrast was not administered for this examination. A dose lowering technique was utilized adhering to the principles of ALARA. CT DOSE: 243.84 mGy.cm FINDINGS: Lower chest: There are minimal lower lobe bronchiectatic changes. Liver: The unenhanced liver is normal in size, contour, and attenuation. There is no intrahepatic biliary ductal dilatation. Gallbladder: Unremarkable. Spleen: Normal in size and attenuation. Pancreas: Unremarkable. Adrenal glands: Unremarkable. Kidneys: Left kidney appears surgically absent. No right renal calculi are visualized. There is no hydronephrosis. Bowel: There are no transition zones indicate bowel obstruction. There is no evidence of acute diverticulitis. There are scattered colonic diverticula present. Peritoneum: There is no intraperitoneal free air or abdominal ascites. Vasculature: The abdominal aorta is normal in course and caliber. Adenopathy: There is been significant interval decrease in the left pelvic sidewall adenopathy. Pelvic viscera: The uterus appears surgically absent. There are suspected left ovarian calcification similar to the preceding study. Right ovarian calcifications are also suspected. Skeletal structures: There are postsurgical changes present within the lumbar spine IMPRESSION: 1. No acute abdominal or pelvic findings 2. No evidence of bowel obstruction. No evidence of free air. 3. No acute inflammatory changes 4. Surgically absent left kidney 5. Marked improvement in the previously identified left pelvic sidewall lymphadenopathy Electronically signed by: Jorge L Sánchez M.D. 12/10/2017 6:51 PM Dictated Date/Time: 12/10/2017 6:46 PM Assessment & Plan Plan: Continue regular follow-up with medical oncology, urology, and her primary care physician. She will be having a PET scan on January 26, 2018. She will see Dr. Garcia in medical oncology on January 31. I stated that we will review the PET scan when it is complete. Dr. Garcia in medical oncology will make decisions as to any further treatment after the PET/CT. We asked her to return to our office in 6 months. She may call if she has any questions or concerns in the interim. Total Time In Follow-Up I spent 20 minutes speaking to the patient in performing examination. I spent 15 minutes reviewing information and completing this note. AK Copy To Jhonny Molina D.O.; Nima Garcia M.D.; Sarkis Jarvis M.D. Problem Qualifiers (1) Primary ureteral papillary carcinoma: Laterality: left Qualified Codes: C66.2 - Malignant neoplasm of left ureter
== END | disposition home or self-care (01) ==
LOC: C.ONC 13:29
PROVIDERS: ATTEND Physician Assistant Medical
DX: Z08 Encounter for follow-up examination after completed treatment for malignant neoplasm (principal); Z92.3 Personal history of irradiation; Z85.54 Personal history of malignant neoplasm of ureter

== ENCOUNTER → 2018-01-26 | Outpatient (CLI) | payer OTHER ==
--- NOTE | 2018-01-26 12:15 | DIAGNOSTIC IMAGING REPORT ---
PET/CT SKULL-THIGH HISTORY: Urinary tract carcinoma MALIGNANT NEOPLASM LT URETER TECHNIQUE: PET/CT was performed from the base of the skull through the pelvis following the intravenous administration of mCi of F18-FDG. Non-contrast CT imaging was performed over the same range without breath-hold for attenuation correction of PET images and anatomic correlation, but not for primary interpretation as it is not of standard diagnostic quality. CT DOSE: COMPARISON: None. FINDINGS: HEAD AND NECK: There is no FDG-avid disease or significant lymphadenopathy in the imaged portions of the head and the neck. CHEST: There is no FDG-avid disease in the chest. There is no axillary, mediastinal, or hilar lymphadenopathy. There is no pleural or pericardial effusion. There is no air-space disease or suspicious lung nodule. ABDOMEN/PELVIS: Below the diaphragm, tracer is distributed physiologically in the gastrointestinal and genitourinary tracts. There is no significant lymphadenopathy and no FDG-avid disease. Prior left effectively unchanged in the prior study. MUSCULOSKELETAL: There is no FDG-avid or destructive bone lesion. IMPRESSION: There is no definite evidence of recurrent FDG-avid disease. Prior left effectively. No current evidence for significant adenopathy. The above report was generated using voice recognition software. It may contain grammatical, syntax or spelling errors. Electronically signed by: Misha Shaver M.D. 01/26/2018 12:14 PM Dictated Date/Time: 01/26/2018 12:08 PM
== END | disposition home or self-care (01) ==
LOC: C.PET 08:31
PROVIDERS: ATTEND Physician Assistant
DX: C66.2 Malignant neoplasm of left ureter (principal)

== ENCOUNTER → 2018-02-15 | Outpatient (CLI) | payer OTHER ==
[~2018-02-15] MED LIST changes: -FLNIN/ NAE; -ONDA-63 PO; -PANT40TA2 PO
== END | disposition home or self-care (01) ==
LOC: C.LAB 16:53
PROVIDERS: ATTEND Urology
DX: C66.2 Malignant neoplasm of left ureter (principal)